=== PATIENT | male | born 1950 | race Caucasian/White ===

== ENCOUNTER → 2016-12-24 | Outpatient (CLI) | payer BC, OTHER ==
[~2016-12-24] MED LIST: ASCO500T3 PO; ASPI325T45 PO; COLE625T PO; Co Q-10 PO; EZET10TA44 PO; FERR325T5 PO; FOLI800T PO; GLC/500 PO; MULT-845 PO; NIAC1TAB59 PO; OMEG10007 PO; PANT40TA PO
== END | disposition home or self-care (01) ==
LOC: C.PATH 13:46
PROVIDERS: ATTEND Dermatology
DX: L82.1 Other seborrheic keratosis (principal)

== ENCOUNTER → 2017-01-27 | Outpatient (CLI) | payer OTHER ==
[2017-01-27 11:21] LABS: ALT/SGPT 38 U/L (12-78); BLOOD UREA NITROGEN 20 mg/dl (7-18); BUN/CREATININE RATIO 23.2 (10-20); CALCIUM 9.7 mg/dl (8.5-10.1); CARBON DIOXIDE 31 mmol/L (21-32); CHLORIDE 107 mmol/L (98-107); CHOLESTEROL 167 mg/dl (0-200); CREATININE 0.88 mg/dl (0.60-1.40); GLUCOSE 106 mg/dl (70-99); POTASSIUM 4.6 mmol/L (3.5-5.1); SODIUM 141 mmol/L (136-145); TRIGLYCERIDES 105 mg/dl (0-150); VERY LOW DENSITY LIPOPROT CALC 21 mg/dl
[2017-01-27 11:24] LABS: ALB/GLOB RATIO 1.1 (0.9-2); ALKALINE PHOSPHATASE 45 U/L (45-117); AST/SGOT 37 U/L (15-37); CHOLESTEROL/HDL RATIO 4.9; HDL CHOLESTEROL 34 mg/dl; LDL CHOLESTEROL CALCULATED 112 mg/dl
[2017-01-27 12:40] LABS: ESTIMATED AVERAGE GLUCOSE 140 mg/dl; HA1C FLAG Normal (Normal)
== END | disposition home or self-care (01) ==
LOC: C.LABBC 08:18
PROVIDERS: ATTEND Physician Assistant
DX: E11.9 Type 2 diabetes mellitus without complications (principal); E78.5 Hyperlipidemia, unspecified

== ENCOUNTER → 2017-05-02 | Outpatient (CLI) | payer OTHER | END | disposition home or self-care (01) | LOC: C.LABBC 12:54 | PROVIDERS: ATTEND Urology | DX: Z12.5 Encounter for screening for malignant neoplasm of prostate (principal) ==

== ENCOUNTER → 2017-08-09 | Outpatient (CLI) | payer OTHER ==
[2017-08-09 13:56] LABS: BASO % 0.6 %; BASO ABS # 0.03 K/uL (0-0.2); EOS % 2.7 %; EOS ABS # 0.14 K/uL (0-0.5); HEMATOCRIT 41.8 % (42-52); HEMOGLOBIN 13.9 g/dL (14.0-18.0); HEMOGLOBIN A1C 6.6 % (4.5-5.6); IG# 0.01 K/uL (0.00-0.02); LYMPH % 20.3 %; LYMPH ABS # 1.05 K/uL (1.2-3.4); MEAN CELL VOLUME 95.2 fL (80-100); MEAN CORPUSCULAR HEMOGLOBIN 31.7 pg (25-34); MEAN CORPUSCULAR HGB CONC 33.3 g/dl (32-36); MEAN PLATELET VOLUME 10.1 fL (7.4-10.4); MONO % 14.1 %; MONO ABS # 0.73 K/uL (0.11-0.59); NEUT % 62.1 %; PLATELET COUNT 169 K/uL (130-400); RED CELL DISTRIBUTION WIDTH CV 13.9 % (11.5-14.5); RED CELL DISTRIBUTION WIDTH SD 48.4 fL (36.4-46.3); WHITE BLOOD COUNT 5.16 K/uL (4.8-10.8)
[2017-08-09 14:32] LABS: ALBUMIN 3.9 gm/dl (3.4-5.0); ALT/SGPT 50 U/L (12-78); BLOOD UREA NITROGEN 16 mg/dl (7-18); CALCIUM 9.7 mg/dl (8.5-10.1); CARBON DIOXIDE 30 mmol/L (21-32); CREATININE 0.84 mg/dl (0.60-1.40); GLUCOSE 106 mg/dl (70-99); POTASSIUM 4.2 mmol/L (3.5-5.1); SODIUM 137 mmol/L (136-145)
[2017-08-09 14:43] LABS: ALKALINE PHOSPHATASE 52 U/L (45-117); AST/SGOT 41 U/L (15-37); TOTAL PROTEIN 8.1 gm/dl (6.4-8.2)
== END | disposition home or self-care (01) ==
LOC: C.LABBC 09:52
PROVIDERS: ATTEND Internal Medicine
DX: I73.9 Peripheral vascular disease, unspecified (principal)

== ENCOUNTER → 2017-08-22 | Outpatient (CLI) | payer OTHER | END | disposition home or self-care (01) | LOC: C.LABBC 11:10 | PROVIDERS: ATTEND Internal Medicine | DX: E78.5 Hyperlipidemia, unspecified (principal) ==

== ENCOUNTER → 2017-10-27 | Outpatient (CLI) | payer OTHER | END | disposition home or self-care (01) | LOC: C.LABBC 09:49 | PROVIDERS: ATTEND Urology | DX: N40.1 Benign prostatic hyperplasia with lower urinary tract symptoms (principal); R97.20 Elevated prostate specific antigen [PSA] ==

== ENCOUNTER → 2018-02-17 | Outpatient (CLI) | payer OTHER ==
[~2018-02-17] MED LIST changes: +ASPECOTC PO; -ASPI325T45 PO
[2018-02-17 11:48] LABS: HEMOGLOBIN A1C 6.5 % (4.5-5.6)
== END | disposition home or self-care (01) ==
LOC: C.LABBC 09:13
PROVIDERS: ATTEND Internal Medicine
DX: E78.5 Hyperlipidemia, unspecified (principal); I73.9 Peripheral vascular disease, unspecified

== ENCOUNTER 2023-06-30 15:37 | Inpatient (IN) ==
--- NOTE | 2023-06-30 15:48 | ED Triage Note ---
Date of Service June 30, 2023 Provider in Triage Author: Austen [place] History of Present Illness This patient was briefly evaluated while in triage. An abbreviated physical exam was performed. This patient is a 73-year-old Male who presents to the ED for evaluation of dyspnea. Here via EMS. On scene about 35 breaths per minute. Hx of pulmonary fibrosis. O2 then 79-80% on 3L. Placed on 15 liters and better. Now 95% at 6L. Started o2 in october of this year. 200mL of NSS in route. Feeling off since this weekend. Notes "dizziness, ear blockage, dry mouth, rapid breathing, heart thumping, swollen ankles, incoherence". On morphine and ativan. Physical Exam GENERAL: 73 year old male. In no acute distress. SKIN: No lesions or rashes. HEART: Regular rate and rhythm. LUNGS: Clear to auscultation. Diminished breath sounds. On oxygen currently. ABDOMEN: Bowel sounds normoactive. No guarding or rigidity. No tenderness of palpation. NEURO: Alert and oriented. No deficits. MUSCULOSKELETAL: No deformities to inspection of the extremities. PSYCH: Patient is pleasant and answers all questions appropriately. Initial orders for labs and / or imaging were placed and patient was placed in the waiting area until a bed is available. Please see further documentation for the full ED course.
[2023-06-30 16:46] LABS: Basophils # (auto) 0.04 K/uL (0.00-0.20); Basophils % (auto) 0.4 %; Eosinophils # (auto) 0.09 K/uL (0.00-0.50); Hematocrit (blood only) 34.5 % (42.0-52.0); Hemoglobin 11.2 g/dl (14.0-18.0); Immature Granulocytes # (auto) 0.04 K/uL (0.01-0.20); Immature Granulocytes % (auto) 0.4 %; Lymphocytes # (auto) 0.63 K/uL (1.20-3.40); Lymphocytes % (auto) 6.7 %; Mean Corpuscular Hemoglobin 32.1 pg (25.0-34.0); Mean Corpuscular Hgb Conc 32.5 g/dL (32.0-36.0); Mean Corpuscular Volume 98.9 fL (80.0-100.0); Mean Platelet Volume 10.3 fL (9.4-12.4); Monocytes # (auto) 0.53 K/uL (0.11-0.59); Monocytes % (auto) 5.6 %; Neutrophils # (auto) 8.08 K/uL (1.40-6.50); Neutrophils % (auto) 85.9 %; Platelet Count 226 K/uL (130-400); RDW Coefficient of Variation 14.4 % (11.5-14.5); RDW Standard Deviation 51.8 fL (36.4-46.3); Red Blood Count 3.49 M/uL (4.70-6.10); White Blood Count 9.41 K/ul (4.8-10.8)
--- NOTE | 2023-06-30 16:48 | XRay Report ---
SINGLE VIEW CHEST CLINICAL HISTORY: Dyspnea. FINDINGS: An AP upright chest radiograph is compared to study dated 09/04/2021 and correlated with [facility] [address] dated 07/23/2022. The patient is status post midline sternotomy. The heart is enlarged and noti ng atherosclerotic calcification of the thoracic aorta. Extensive/diffuse nodular airspace opacities are seen throughout both lungs. This likely represents chronic interstitial lung disease. Air space o pacities have worsened as compared to the 2021 examination, and a superimposed multifocal pneumonia o r pulmonary edema is not excluded.. No large pleural effusion or pneumothorax is seen. The skeletal s tructures are osteopenic. The bony thorax is grossly intact. A surgical anchor is noted in the right humeral head. Surgical clips project over the upper abdomen. IMPRESSION: 1. Findings of severe chronic/interstitial lung disease are again noted. 2. Diffuse airspace opacities have significantly progressed as compared to the 09/04/2021 examination. Superimposed multifocal pneumonia and/or pulmonary edema is not excluded. Clinical correlation will be essential. 3. Cardiomegaly. 4. No large pleural effusion or pneumothorax is seen. ACT 112: Negative or not required by law. Electronically signed by: David Anthony M.D. 06/30/2023 4:47 PM
[2023-06-30 17:00] LABS: Albumin Level 3.5 gm/dl (3.4-5.0); BUN Creatinine Ratio 41.9 (10-20); Bilirubin,Total 0.3 mg/dl (0.2-1.0); Creatinine Clr Calc Pharmacy 75.3 ml/min; Est GFR (African American) 106.8 ml/min; Est GFR (Non-African American) 92.2 ml/min; Globulin 3.4 gm/dl (2.5-4.0); Potassium 4.4 mmol/L (3.5-5.1); Total Protein 6.9 gm/dl (6.0-8.3)
[2023-06-30 17:09] LABS: INR 1.3 (0.9-1.1); Partial Thromboplastin Ratio 0.9; Partial Thromboplastin Time 25 Seconds (21-31)
[2023-06-30 17:14] LABS: Thyroid Stimulating Hormone 1.559 uIu/ml (0.300-4.500)
[2023-06-30 17:22] LABS: Adenovirus PCR Not Detected (NotDetected); Bordetella parapertussis PCR Not Detected (NotDetected); Bordetella pertussis PCR Not Detected (NotDetected); Chlamydia pneumoniae PCR Not Detected (NotDetected); Coronavirus 229E PCR Not Detected (NotDetected); Coronavirus CoV-2 (COVID19)PCR Not Detected (NotDetected); Coronavirus HKU1 PCR Not Detected (NotDetected); Coronavirus NL63 PCR Not Detected (NotDetected); Coronavirus OC43PCR Not Detected (NotDetected); Human Metapneumovirus PCR Not Detected (NotDetected); Influenza A PCR Not Detected (NotDetected); Influenza B PCR Not Detected (NotDetected); Mycoplasma pneumoniae PCR Not Detected (NotDetected); Parainfluenza Virus 1 PCR Not Detected (NotDetected); Parainfluenza Virus 2 PCR Not Detected (NotDetected); Parainfluenza Virus 3 PCR Not Detected (NotDetected); Parainfluenza Virus 4 PCR Not Detected (NotDetected); Respiratory Syncytial VirusPCR Not Detected (NotDetected); Rhinovirus/Enterovirus PCR Not Detected (NotDetected)
[2023-06-30] MEDS ORDERED: NITROGLYCERIN 2% OINTMENT 30GM TUBE EXT STA (17:25)
[2023-06-30] MEDS ORDERED: FUROSEMIDE 40 MG/4 ML VIAL IV ONE (17:34)
--- NOTE | 2023-06-30 17:41 | Emergency Department Note ---
Impression & Plan SOB (shortness of breath), CHF (congestive heart failure), Pedal edema, Anemia, Elevated troponin ED Provider Note NAME: MARCO ANTONIO GARCIA AGE: 73 SEX: M : 1950 ARRIVES VIA: Ambulance INFORMANT: [Patient][family] ED PROVIDER(S): [David Smith MD] CHIEF COMPLAINT: Short of breath HISTORY OF PRESENT ILLNESS: The patient is a 73-year-old male who states that he has had increasing shortness of breath for about 3 weeks. No fever or increased cough. He has noticed an increasing pedal edema. The patient states that he typically wears 3 L of oxygen. Today, he felt poor enough that EMS was called. Upon EMS arrival, O2 saturation was in the upper 70s on his typical 3 L. He was placed on a higher amount of oxygen and feels markedly better. He is currently on 6 L and breathing much more comfortably. The patient has not had chest pain. He has been taking his medications as prescribed. As per his family, at times recently, the patient has been more somnolent and not quite himself. Right now, he is interactive, awake and alert. PMHx/PSHx/Social Hx: See Below PHYSICAL EXAM: GENERAL: Patient is in mild respiratory distress. Thin. HEENT: No acute trauma, normocephalic atraumatic, mucous membranes moist, no nasal congestion. NECK: No stridor, no adenopathy, no meningismus, trachea is midline. LUNGS: Increased respiratory rate. Does speak in shorter sentences. Patient has crackles bilaterally, breath sounds equal bilaterally. HEART: Without murmurs gallops or rubs, regular rate and rhythm. ABDOMEN: Soft, nontender, no peritonitis. EXTREMITIES: No cyanosis, full range of motion of all the joints without pain or difficulty. Moderate bilateral pedal edema. NEUROLOGIC: Awake and alert, no acute motor or sensory deficits, no focal weakness. SKIN: No jaundice, no diaphoresis. DIFFERENTIAL DIAGNOSIS: Pneumonia, bronchitis, viral illness, worsening pulmonary fibrosis, CHF, anemia, cardiac ischemia, among others. EMERGENCY DEPARTMENT PROCEDURES: MEDICAL DECISION MAKING: There is no leukocytosis. An anemia was seen with a hemoglobin of 11.2. The patient does have a history of anemia although today's value is somewhat lower than baseline. There is a normal platelet count. INR is high at 1.3. There is no renal failure. Lactic acid level is not elevated making sepsis less likely. No concerning liver enzyme elevation. Patient appeared to be in euthyroid state. ECG shows a normal sinus rhythm, there was no ST elevation. Cardiac enzyme testing x 1 was slightly elevated. This troponin elevation could be secondary to mismatch from his dyspnea or potentially cardiac injury. BNP was elevated consistent with CHF and fluid overload. Chest x-ray does show what appears to be CHF. Pulmonary fibrosis was also seen. Chest CT does not show PE, pneumonia versus potential fluid overload was suggested. Respiratory bio fire was negative. On exam, the patient did have crackles bilaterally. He had pedal edema. The patient appeared to be fluid overloaded by workup and exam. He was given 1 inch of nitroglycerin paste. He was given 40 mg of IV Lasix. Cefepime was given for empiric antibiotic coverage. I did speak with the patient about his findings--given his dyspnea, given the reported hypoxia, given his x-ray findings and laboratory testing, hospitalization is indicated. I spoke with the patient and case management. The on-call hospitalist was consulted. Prior/Outside records/notes reviewed: Pulmonology note from 06/14/2023 discussing his chronic pulmonary fibrosis as well as coronary artery disease and the plan moving forward. ECG per my interpretation: Indication was shortness of breath. The ECG shows a normal sinus rhythm with significant baseline artifact. The rate is 89. There is no obvious ST elevation, no PVCs. The QTc is 579. Continuous Cardiac Monitoring per my interpretation: An order was placed for continuous cardiac monitoring. The monitor shows a rate of 79 with normal sinus rhythm. Imaging/x-ray results per my interpretation: Chest x-ray shows pulmonary fibrosis and what appears to be some CHF. No pneumothorax. Chronic Medical/Social conditions affecting care: Advanced age, chronic pulmonary fibrosis. Care/Management discussed with: Case management, the on-call [facility] hospitalist. Level of care consideration(s): After review of the information above and other included data: --I believe the patient requires escalation of care to admission Critical Care Note: I have personally spent 47 minutes of critical care time in the direct management of this patient. This includes bedside care, interpretation of diagnostic studies, and testing, discussion with consultants, patient, and family members, and other required patient management activities. This 47 minutes is in excess of all separately billable procedures. DISPOSITION: Admission Past Med/Surg History Medical History Dyspnea Cachexia associated with pulmonary fibrosis IPF (idiopathic pulmonary fibrosis) Pulmonary hypertension Lower extremity edema Coronary artery disease Lung nodule, multiple Persistent dry cough Lower extremity edema CORIN on CPAP Iron deficiency anemia Aleman's esophagus without dysplasia History of anesthesia reaction "a little bit goes a long way" History of kidney stones BPH (benign prostatic hyperplasia) History of hiatal hernia Diabetes mellitus, type 2 NIDDM On anticoagulant therapy aspirin 325mg daily Hypertension Hyperlipidemia Obstructive sleep apnea CPAP Peripheral arterial disease Coronary artery disease FOLLOWS WITH PCP DR. MONTEZ Surgical History History of cataract surgery BILAT History of repair of right rotator cuff History of prostate biopsy benign Hx of vasectomy History of cystoscopy Status post laser lithotripsy of ureteral calculus History of colonoscopy History of esophagogastroduodenoscopy (EGD) History of tooth extraction History of wisdom tooth extraction History of left-sided carotid endarterectomy 1993 @ [place], [place]--90% blocked History of cardiac cath 1985 ---> CABG History of four vessel coronary artery bypass graft 1985 @ [facility] Family History Father Myocardial infarction Prostate cancer Mother Family history of diabetes mellitus Hypertension Myocardial infarction Diabetes Other No family history of adverse response to anesthesia Denies family history of Ovarian cancer Breast cancer Lung cancer Colorectal cancer Stroke Social History Smoking Status: Current every day smoker Second Hand Exposure: No; Do You Dip or Chew Tobacco: No; Hx Alcohol Use: No Hx Substance Use: No Preferred Language: Yakut Communication Ability: Effective Visual Impairment: Limited Hearing Ability: Normal 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 [employer] Required: No Beliefs That Will Affect Care: None marital status: Current Living Situation: Spouse Current Living Situation Comment: Lives with and adult daughter current occupational status: retired How many Children do You have: 3 Feels Safe at Home: Yes Childhood Exposure to Second-Hand Smoke: Yes Diet: regular caffeine: Yes Dental Care, Regularly: Yes Physical Activity Frequency: 3-4 Times per Week Seatbelt Use: always Sunscreen Use: Yes Assistive Devices: None Allergies Allergies Allergy/AdvReac Type Severity Reaction Status Date / Time No Known Allergies Allergy Verified 06/30/23 17:36 Home Meds Home Medications Medication Instructions Recorded Confirmed folic acid 800 mcg tablet 0.8 mg PO TID 02/13/19 06/30/23 [id number] 300 mcg-K 60 1 tab PO QAM 02/13/19 06/30/23 mcg-lycop 600 mcg-lutein 300 mcg tablet (Centrum Silver Ultra Men's) omega-3 acid ethyl esters 1 gram 1 cap PO QDL 02/13/19 06/30/23 capsule ascorbic acid (vitamin C) 500 mg 500 mg PO 3XWK 02/21/19 06/30/23 tablet ferrous sulfate 325 mg (65 mg 325 mg PO 3XWK 02/21/19 06/30/23 iron) tablet cyanocobalamin (vitamin B-12) 2,500 mcg PO QAM 02/22/19 06/30/23 2,500 mcg tablet coenzyme Q10 100 mg tablet 200 mg PO QAM 03/28/20 06/30/23 lactobacillus combination no.9 4 4,000 mmu cells PO QAM 03/28/20 06/30/23 billion cell capsule (Adult 50 Plus Probiotic) evolocumab 140 mg/mL subcutaneous 140 mg subcut .Q2WKS 02/22/22 06/30/23 pen injector (Gabriele Downey) ipratropium bromide 21 mcg (0.03 2 spray intranasal BID 09/21/22 06/30/23 %) nasal spray aspirin 81 mg tablet,delayed 81 mg PO DAILY 06/30/23 06/30/23 release ezetimibe 10 mg tablet 10 mg PO HS 06/30/23 06/30/23 metformin 500 mg tablet 1,000 mg PO BID 06/30/23 06/30/23 pantoprazole 40 mg tablet,delayed 40 mg PO QAM 06/30/23 06/30/23 release pirfenidone 267 mg capsule 534 mg PO TID 06/30/23 06/30/23 (Esbriet) rosuvastatin 40 mg tablet 40 mg PO HS 06/30/23 06/30/23 Previous Rx's Medication Instructions Recorded CPAP Machine #1 ea 07/04/19 blood-glucose meter (OneTouch #1 ea 09/27/19 Ultra2 Meter kit) Flutter Valve #1 ea 03/01/22 lancets 30 gauge (OneTouch Delica #100 ea 06/22/22 Lancets) colesevelam 625 mg tablet 1,250 mg (2 x 625 mg) PO TID #540 07/30/22 tabs CPAP Supplies #1 ea 10/12/22 alfuzosin 10 mg tablet,extended 10 mg PO DAILY #90 tabs 10/13/22 release 24 hr gabapentin 300 mg capsule 300 mg PO BID #240 caps 11/25/22 furosemide 40 mg tablet (Lasix) 40 mg PO DAILY Interstitial lung 02/25/23 disease/pulmonary edema #90 tabs benzonatate 100 mg capsule 100 mg PO TID PRN cough #90 caps 04/07/23 morphine 20 mg/5 mL (4 mg/mL) oral 2.5 mg (0.625 mL) PO Q6H PRN 04/14/23 solution dyspnea #100 mL lorazepam 0.5 mg tablet 0.25 mg (1/2 x 0.5 mg) PO Q8H PRN 05/12/23 anxiety due to resp failure from pulm fibrosis 1 month #90 tabs Oxygen Home #2 L 05/16/23 Results & Data (ED) Vital Signs Vital Signs - 24 hr 06/30/23 15:36 06/30/23 15:46 06/30/23 17:27 Temperature 36.6 C Temperature Source Temporal Artery Scan Pulse Rate 79 90 Pulse Rate from SpO2 Sensor Respiratory Rate 18 Blood Pressure 96/63 L Blood Pressure Mean 74 Pulse Oximetry 95 95 Oxygen Delivery Method Nasal Cannula Nasal Cannula Oxygen Flow Rate 6 6 Sepsis Recent Fever Within 48 Hours No Sepsis New/Unexplained Change in Mental Status N/A Sepsis Action Taken by Nursing No Action Required 06/30/23 17:27 06/30/23 17:30 06/30/23 17:30 Temperature Temperature Source Pulse Rate 81 95 H Pulse Rate from SpO2 Sensor 82 95 H Respiratory Rate 24 32 H Blood Pressure 95/69 L Blood Pressure Mean 78 Pulse Oximetry 99 99 Oxygen Delivery Method Oxygen Flow Rate Sepsis Recent Fever Within 48 Hours Sepsis New/Unexplained Change in Mental Status Sepsis Action Taken by Nursing 06/30/23 18:00 06/30/23 18:00 Temperature Temperature Source Pulse Rate 90 Pulse Rate from SpO2 Sensor 90 Respiratory Rate 26 H Blood Pressure 99/70 L Blood Pressure Mean 84 Pulse Oximetry 99 Oxygen Delivery Method Oxygen Flow Rate Sepsis Recent Fever Within 48 Hours Sepsis New/Unexplained Change in Mental Status Sepsis Action Taken by Care Home Medications Current Medication List: was personally reviewed by me Laboratory Data Attestation: I reviewed the patient's lab results. 06/30/23 16:14 06/30/23 16:14 Lab Results 06/30/23 06/30/23 06/30/23 Range/Units 16:12 16:14 16:15 WBC 9.41 (4.8-10.8) K/ul RBC 3.49 L (4.70-6.10) M/uL Hgb 11.2 L (14.0-18.0) g/dl Hct 34.5 L (42.0-52.0) % MCV 98.9 (80.0-100.0) fL MCH 32.1 (25.0-34.0) pg MCHC 32.5 (32.0-36.0) g/dL RDW Std Deviation 51.8 H (36.4-46.3) fL RDW Coeff of Joe 14.4 (11.5-14.5) % Plt Count 226 (130-400) K/uL MPV 10.3 (9.4-12.4) fL Immature Gran % (Auto) 0.4 % Neut % (Auto) 85.9 % Lymph % (Auto) 6.7 % [place] % (Auto) 5.6 % Eos % (Auto) 1.0 % Baso % (Auto) 0.4 % Neut # (Auto) 8.08 H (1.40-6.50) K/uL Lymph # (Auto) 0.63 L (1.20-3.40) K/uL [place] # (Auto) 0.53 (0.11-0.59) K/uL Eos # (Auto) 0.09 (0.00-0.50) K/uL Baso # (Auto) 0.04 (0.00-0.20) K/uL Immature Gran # (Auto) 0.04 (0.01-0.20) K/uL PT 14.0 H (9.0-12.0) Seconds INR 1.3 H (0.9-1.1) APTT 25 (21-31) Seconds PTT Ratio 0.9 Sodium 141 (136-145) mmol/L Potassium 4.4 (3.5-5.1) mmol/L Chloride 105 (98-107) mmol/L Carbon Dioxide 29 (21-32) mmol/L Anion Gap 7 (3-11) BUN 31 H (6-23) mg/dl Creatinine 0.74 (0.6-1.4) mg/dl Est Cr Clr Drug Dosing 75.3 ml/min Est GFR ( Amer) 106.8 ml/min Est GFR (Non-Af Amer) 92.2 ml/min BUN/Creatinine Ratio 41.9 H (10-20) Glucose 126 H (70-99(Fasting)) mg/dl Lactate (0.4-2.0) mmol/L Calcium 9.0 (8.6-10.3) mg/dl Magnesium 1.9 (1.7-2.4) mg/dl Total Bilirubin 0.3 (0.2-1.0) mg/dl AST 20 (13-39) U/L ALT 12 (7-52) U/L Alkaline Phosphatase 56 (34-104) U/L Troponin I High Sens 242.0 H* (0-20) pg/ml B-Natriuretic Peptide 961 H (0-100) pg/ml Total Protein 6.9 (6.0-8.3) gm/dl Albumin 3.5 (3.4-5.0) gm/dl Globulin 3.4 (2.5-4.0) gm/dl Albumin/Globulin Ratio 1.0 (0.9-2) TSH 1.559 (0.300-4.500) uIu/ml Adenovirus (PCR) Not Detected (NotDetected) B. pertussis DNA (PCR) Not Detected (NotDetected) B.parapertussis DNA PCR Not Detected (NotDetected) C. pneumoniae DNA (PCR) Not Detected (NotDetected) Coronavirus OC43 (PCR) Not Detected (NotDetected) Coronavirus HKU1 (PCR) Not Detected (NotDetected) Coronavirus 229E (PCR) Not Detected (NotDetected) SARS-CoV-2 (PCR) Not Detected (NotDetected) Coronavirus NL63 (PCR) Not Detected (NotDetected) Human Metapneumovir PCR Not Detected (NotDetected) Influenza Type A (PCR) Not Detected (NotDetected) Influenza Type B (PCR) Not Detected (NotDetected) M. pneumoniae (PCR) Not Detected (NotDetected) Parainfluenza 1 (PCR) Not Detected (NotDetected) Parainfluenza 2 (PCR) Not Detected (NotDetected) Parainfluenza 3 (PCR) Not Detected (NotDetected) Parainfluenza 4 (PCR) Not Detected (NotDetected) RSV (PCR) Not Detected (NotDetected) Entero/Rhino (PCR) Not Detected (NotDetected) 06/30/23 Range/Units 17:42 WBC (4.8-10.8) K/ul RBC (4.70-6.10) M/uL Hgb (14.0-18.0) g/dl Hct (42.0-52.0) % MCV (80.0-100.0) fL MCH (25.0-34.0) pg MCHC (32.0-36.0) g/dL RDW Std Deviation (36.4-46.3) fL RDW Coeff of Joe (11.5-14.5) % Plt Count (130-400) K/uL MPV (9.4-12.4) fL Immature Gran % (Auto) % Neut % (Auto) % Lymph % (Auto) % [place] % (Auto) % Eos % (Auto) % Baso % (Auto) % Neut # (Auto) (1.40-6.50) K/uL Lymph # (Auto) (1.20-3.40) K/uL [place] # (Auto) (0.11-0.59) K/uL Eos # (Auto) (0.00-0.50) K/uL Baso # (Auto) (0.00-0.20) K/uL Immature Gran # (Auto) (0.01-0.20) K/uL PT (9.0-12.0) Seconds INR (0.9-1.1) APTT (21-31) Seconds PTT Ratio Sodium (136-145) mmol/L Potassium (3.5-5.1) mmol/L Chloride (98-107) mmol/L Carbon Dioxide (21-32) mmol/L Anion Gap (3-11) BUN (6-23) mg/dl Creatinine (0.6-1.4) mg/dl Est Cr Clr Drug Dosing ml/min Est GFR ( Amer) ml/min Est GFR (Non-Af Amer) ml/min BUN/Creatinine Ratio (10-20) Glucose (70-99(Fasting)) mg/dl Lactate 1.0 (0.4-2.0) mmol/L Calcium (8.6-10.3) mg/dl Magnesium (1.7-2.4) mg/dl Total Bilirubin (0.2-1.0) mg/dl AST (13-39) U/L ALT (7-52) U/L Alkaline Phosphatase (34-104) U/L Troponin I High Sens (0-20) pg/ml B-Natriuretic Peptide (0-100) pg/ml Total Protein (6.0-8.3) gm/dl Albumin (3.4-5.0) gm/dl Globulin (2.5-4.0) gm/dl Albumin/Globulin Ratio (0.9-2) TSH (0.300-4.500) uIu/ml Adenovirus (PCR) (NotDetected) B. pertussis DNA (PCR) (NotDetected) B.parapertussis DNA PCR (NotDetected) C. pneumoniae DNA (PCR) (NotDetected) Coronavirus OC43 (PCR) (NotDetected) Coronavirus HKU1 (PCR) (NotDetected) Coronavirus 229E (PCR) (NotDetected) SARS-CoV-2 (PCR) (NotDetected) Coronavirus NL63 (PCR) (NotDetected) Human Metapneumovir PCR (NotDetected) Influenza Type A (PCR) (NotDetected) Influenza Type B (PCR) (NotDetected) M. pneumoniae (PCR) (NotDetected) Parainfluenza 1 (PCR) (NotDetected) Parainfluenza 2 (PCR) (NotDetected) Parainfluenza 3 (PCR) (NotDetected) Parainfluenza 4 (PCR) (NotDetected) RSV (PCR) (NotDetected) Entero/Rhino (PCR) (NotDetected) Administered Medications Ezetimibe (Ezetimibe 10 Mg Tab) 10 mg PO [facility] Stop: 07/30/23 20:59 Last Admin: 06/30/23 20:56 Dose: 10 mg Documented By: HAZEL Folic Acid (Folic Acid 400 Mcg Tab) 800 mcg PO TID [facility] Stop: 07/30/23 20:59 Last Admin: 06/30/23 20:56 Dose: 800 mcg Documented By: HAZEL Gabapentin (Gabapentin 300 Mg Cap) 300 mg PO BID [facility] Stop: 07/30/23 20:59 Last Admin: 06/30/23 20:57 Dose: 300 mg Documented By: HAZEL Methylprednisolone 80 mg/ (Syringe) 1.28 mls @ 1.5 mls/min IV TID [facility] Stop: 07/30/23 20:59 Last Admin: 06/30/23 20:58 Dose: 1.5 mls/min Documented By: HAZEL Insulin Aspart (Insulin Aspart Per Unit Charge) 0 units SC ACHS [facility] Stop: 07/30/23 20:59 Last Admin: 06/30/23 20:57 Dose: 6 units Documented By: HAZEL Co-signed By: ANUSHA Ipratropium [place] (Ipratropium [place] Nasal [place] 0.06% 15ml) 2 sprays JUAN JOSÉ BID [facility] Stop: 07/30/23 20:59 Last Admin: 06/30/23 20:58 Dose: Not Given Documented By: HAZEL Rosuvastatin Calcium (Rosuvastatin Calcium 20 Mg Tab) 40 mg PO [facility] Stop: 07/30/23 20:59 Last Admin: 06/30/23 20:58 Dose: 40 mg Documented By: HAZEL Discontinued Medications Furosemide (Furosemide 40 Mg/4 Ml Vial) 40 mg IV ONE ONE Stop: 06/30/23 17:35 Last Admin: 06/30/23 18:14 Dose: 40 mg Documented By: CPB Vancomycin HCl 1,500 mg/ (Sodium Chloride) 530 mls @ 200 mls/hr IV NOW ONE Stop: 06/30/23 22:07 Last Admin: 06/30/23 20:01 Dose: 200 mls/hr Documented By: AHZEL Cefepime HCl (Maxipime) 20 mls @ 5 mls/min IV Q8H [facility]; Protocol Stop: 06/30/23 21:00 Last Admin: 06/30/23 20:01 Dose: 5 mls/min Documented By: HAZEL Ioversol (Optiray 320 125ml) 119 ml IV ONCE ONE Stop: 06/30/23 19:43 Last Admin: 06/30/23 19:43 Dose: 119 ml Documented By: TITUS Methylprednisolone (Methylprednisolone 125 Mg/2 Ml Vial) Confirm Administered Dose 125 mg .ROUTE .STK-MED ONE Stop: 06/30/23 20:49 Last Admin: 06/30/23 21:08 Dose: Not Given Documented By: HAZEL Nitroglycerin (Nitroglycerin 2% Ointment 30gm Tube) 1 inch EXT NOW STA Stop: 06/30/23 17:26 Last Admin: 06/30/23 17:45 Dose: 1 inch Documented By: CPB Imaging Data Radiologist's Impression: Chest X-Ray 06/30/23 15:49 SINGLE VIEW CHEST CLINICAL HISTORY: Dyspnea. FINDINGS: An AP upright chest radiograph is compared to study dated 09/04/2021 and correlated with chest CT dated 07/23/2022. The patient is status post midline sternotomy. The heart is enlarged and noting atherosclerotic calcification of the thoracic aorta. Extensive/diffuse nodular airspace opacities are seen throughout both lungs. This likely represents chronic interstitial lung disease. Air space opacities have worsened as compared to the 2021 examination, and a superimposed multifocal pneumonia or pulmonary edema is not excluded.. No large pleural effusion or pneumothorax is seen. The skeletal structures are osteopenic. The bony thorax is grossly intact. A surgical anchor is noted in the right humeral head. Surgical clips project over the upper abdomen. IMPRESSION: 1. Findings of severe chronic/interstitial lung disease are again noted. 2. Diffuse airspace opacities have significantly progressed as compared to the 09/04/2021 examination. Superimposed multifocal pneumonia and/or pulmonary edema is not excluded. Clinical correlation will be essential. 3. Cardiomegaly. 4. No large pleural effusion or pneumothorax is seen. ACT 112: Negative or not required by law. Electronically signed by: David Anthony M.D. 06/30/2023 4:47 PM Chest CTA 06/30/23 17:25 Exam(s): CTA CHEST IV Amt: 119 ml optiray 320 EXAM: CT Angiography Chest With Intravenous Contrast CLINICAL HISTORY: Reason for exam: PE. TECHNIQUE: Axial computed tomographic angiography images of the chest with intravenous contrast. CTDI is 14.25 mGy and DLP is 307.38 mGy-cm. Automated exposure control was utilized for the study. A dose lowering technique was utilized adhering to the principles of ALARA. MIP reconstructed images were created and reviewed. COMPARISON: 07/23/2022. FINDINGS: Pulmonary arteries: Small distal branch of a right posterior subsegmental pulmonary artery through the right lower lobe not optimally visualized probably due to motion artifact and severe lung disease. No distinct filling defect seen with the pulmonary arteries to suggest pulmonary embolus. Aorta: Calcified atherosclerotic disease of aorta with no aneurysm or dissection. Lungs: Worsening of reticulonodular and honeycombing pattern consistent with pulmonary fibrosis. Groundglass opacities more severe through the bilateral lower lobes does not exclude superimposed pneumonia. Pleural space: Unremarkable. No significant effusion. No pneumothorax. Heart: Moderate cardiomegaly with coronary artery calcifications. No significant pericardial effusion. No evidence of RV dysfunction. Bones/joints: Midline sternotomy wires. No acute fracture. No dislocation. Soft tissues: Unremarkable. Lymph nodes: Unremarkable. No enlarged lymph nodes. Gallbladder and bile ducts: Upper abdomen revealed thickening of gallbladder wall versus pericholecystic fluid. Low-attenuation structure within the posterior aspect of the right liver lobe measuring 12 mm otherwise incompletely characterized. Other findings: Multilevel degenerative disease of the spine. IMPRESSION: 1. No distinct pulmonary embolus or aortic dissection. 2. Interval worsening of pulmonary fibrosis with superimposed pneumonia, more so through the bilateral lower lobes not excluded. 3. No pneumothorax. 4. Question fluid versus thickening of the wall of the gallbladder, cannot exclude acute cholecystitis. Recommend follow-up with right upper quadrant ultrasound if clinically indicated. Electronically signed by: Shasta Richards MD 06/30/23 20:35 PM Discharge Plan Visit Data Chief Complaint: Shortness of Breath/Dyspnea Stated Complaint: PULMONARY FIBROSIS, INCREASED RR ED Provider: David Smith Discharge Problem: SOB (shortness of breath), CHF (congestive heart failure), Pedal edema, Anemia, Elevated troponin Patient Disposition: Admitted As Inpatient Condition: Fair Discharge Instructions Interventions: ED Discharge Assessment Last Done: 06/30/23 19:49 Discharge Problem: CHF (congestive heart failure) Qualifiers: Heart failure type: unspecified Heart failure chronicity: acute Qualified Code(s): I50.9 - Heart failure, unspecified Anemia Qualifiers: Anemia type: unspecified type Qualified Code(s): D64.9 - Anemia, unspecified
[2023-06-30 17:57] LABS: Magnesium 1.9 mg/dl (1.7-2.4)
--- NOTE | 2023-06-30 17:58 | History & Physical Report ---
Date of Service June 30, 2023 Assessment & Plan (1) Dyspnea: (2) IPF (idiopathic pulmonary fibrosis): (3) CORIN on CPAP: (4) Coronary artery disease: (5) Hypertension: (6) Hyperlipidemia: (7) Type 2 diabetes mellitus: Plan: Acute worsening shortness of breath Idiopathic pulmonary fibrosis Acute on Chronic respiratory failure with hypoxia CORIN on CPAP -Admit to telemetry -Bio fire is negative for acute viral source -Wears 3L NC at baseline, currently requiring 6L, O2 sats 95% -CXR for possible multifocal pneumonia versus fluid overload, with increased edema in legs and progressive worsening shortness of breath presume this may be fluid related, BNP 961 - CT angio pending -Troponin elevated at 242 trend every 6 hours, no chest pain, no acute changes on EKG noted, unlikely ACS at this time, possible demand ischemia - Lasix and nitro 1 in paste administered in the ER, continue Lasix 40 mg IV, place Childers catheter for strict I's/O's, daily weights -Patient has been following with [facility] pulmonology started clinical trial recently-on pirfenidone 801mg TID for antifibrotic therapy. Pt also on morphine for air hunger and anxiety-Per pulm visit on 06/14 patient was reluctant to take it at that time, he is agreeable currently -Will consult Pulm here for management -Patient is not on any steroids, consider -Ca 9.41, check procalcitonin -Follow blood culture, only 1 set obtained, obtain a second now - start IV cefepime and vancomycin, check MRSA nasal swab and if negative can DC Vanco -Has seen palliative care with [facility] as well per pulmonary medicine report as he is not a lung transplant candidate due to underlying cardiac comorbidities.-On -Sleep study has been ordered as an outpatient to see if CPAP pressures can be decreased and can wean off CPAP due to ongoing sinus issues - IV morphine for air hunger CAD HTN HLD - prior CABG x4 at [facility] at the age of 36 in 1985. He had an incidental finding of severe asymptomatic left carotid disease and underwent a left carotid endarterectomy at [facility] in February of 1994. -Follows with Dr. Malave [facility] as outpatient - consult cardiology - On Repatha, colesevelam, baby aspirin, coenzyme Q10, ezetimibe, rosuvastatin - Lasix 40 mg daily - additional lasix given as above - Check Echo with elevated troponin and fluid overload on exam - pt reports having echo completed in January at [facility] but those results are not available for review DM II - Last A1C was 6.9 on 05/11/23 - Hold po metformin, ISS with accucheck achs GERD - Cont PPI Anxiety - Morphine oral solution also to be utilized for air hunger - Gabapentin DVT ppx: teds, scds Lines: GI/FEN: CODE: FULL Dispo: From home, likely to remain in the hospital x 1-2 days History of Present Illness Chief Complaint: Shortness of breath Primary Care Provider: Octavia Bah DO This is a 73-year-old male, goes by "Adryan", with PMHx of idiopathic pulmonary fibrosis, CAD, HLD, carotid stenosis, sleep apnea, DM type II who presents to the hospital with acute worsening shortness of breath of the past 3 weeks, with associated peripheral edema worsening within the past 1 weeks. Pt reports feeli ng increased fatigue and weakness within the past week moreso than his baseline. He typically wears 3 L at baseline, sometimes 3.5 with exertional activities. Normally he can walk 10 to 15 feet without becoming significantly winded, however within the past week he has been able to do minimal things and only walk a little bit before needing to catch his breath. He sleeps lying flat and does not require pillows to prop him up. He does sit for the majority of the day and his feet are on the ground, not elevated. Patient walks without any ambulatory assistive device. Denies any recent falls. He admits to having some chest heaviness which has been present for months, but admits to feeling palpitations today. He denies any specific chest pain, no numbness or tingling, no nausea. Pt has issues with eating and has lost a significant amount of weight, weight about 130 lbs currently. Pt is drinking carnation instant breakfast daily when he cannot tolerate a lot of food. Pt denies any weight gain or loss acutely with swelling in legs. In the past week he had stopped using Ativan and morphine sulfate for air hunger. Pts reports thinking he was confused a litle more than normal about a week ago, and so held these meds since Tuesday. Pt took all his morning medications today. Pts Delores is present at bedside and supports the history. She states that yesterday he was just not himself, had increased difficulty breathing with minimal ADLs. She also notes that Adryan is participating in Tyvaso clinical trial with [facility] and was supposed to go yesterday but didn't feel well enough and did not go. [facility] sees the pt twice weekly as outpatient. He has also recently started seeing a psych therapist for depression/anxiety associated with the sad ness he still feels when knowing that he is not a lung transplant candidate. Today he wishes to be full code. Discussion was held regarding using oral morphine for air hunger and he states his symptoms of shortness of breath seem to be more controlled with this medication. Allergies Allergy/AdvReac Type Severity Reaction Status Date / Time No Known Allergies Allergy Verified 06/30/23 17:36 Home Medications Medication Instructions Recorded Confirmed Type folic acid 800 mcg tablet 0.8 mg PO TID 02/13/19 06/30/23 History nkgctyll-xm-qldhm 300 mcg-K 60 1 tab PO QAM 02/13/19 06/30/23 History mcg-lycop 600 mcg-lutein 300 mcg tablet (Centrum Silver Ultra Men's) omega-3 acid ethyl esters 1 gram 1 cap PO QDL 02/13/19 06/30/23 History capsule ascorbic acid (vitamin C) 500 mg 500 mg PO 3XWK 02/21/19 06/30/23 History tablet ferrous sulfate 325 mg (65 mg 325 mg PO 3XWK 02/21/19 06/30/23 History iron) tablet cyanocobalamin (vitamin B-12) 2,500 mcg PO QAM 02/22/19 06/30/23 History 2,500 mcg tablet CPAP Machine #1 ea 07/04/19 06/09/23 Rx blood-glucose meter (OneTouch #1 ea 09/27/19 06/09/23 Rx Ultra2 Meter kit) coenzyme Q10 100 mg tablet 200 mg PO QAM 03/28/20 06/30/23 History lactobacillus combination no.9 4 4,000 mmu cells PO QAM 03/28/20 06/30/23 History billion cell capsule (Adult 50 Plus Probiotic) evolocumab 140 mg/mL subcutaneous 140 mg subcut .Q2WKS 02/22/22 06/30/23 History pen injector (Gabriele Downey) Flutter Valve #1 ea 03/01/22 06/09/23 Rx lancets 30 gauge (OneTouch Delica #100 ea 06/22/22 06/09/23 Rx Lancets) colesevelam 625 mg tablet 1,250 mg (2 x 625 mg) PO TID #540 07/30/22 06/30/23 Rx tabs ipratropium bromide 21 mcg (0.03 2 spray intranasal BID 09/21/22 06/30/23 History %) nasal spray CPAP Supplies #1 ea 10/12/22 06/09/23 Rx alfuzosin 10 mg tablet,extended 10 mg PO DAILY #90 tabs 10/13/22 06/30/23 Rx release 24 hr gabapentin 300 mg capsule 300 mg PO BID #240 caps 11/25/22 06/30/23 Rx furosemide 40 mg tablet (Lasix) 40 mg PO DAILY Interstitial lung 02/25/23 06/30/23 Rx disease/pulmonary edema #90 tabs benzonatate 100 mg capsule 100 mg PO TID PRN cough #90 caps 04/07/23 06/30/23 Rx morphine 20 mg/5 mL (4 mg/mL) oral 2.5 mg (0.625 mL) PO Q6H PRN 04/14/23 06/30/23 Rx solution dyspnea #100 mL lorazepam 0.5 mg tablet 0.25 mg (1/2 x 0.5 mg) PO Q8H PRN 05/12/23 06/30/23 Rx anxiety due to resp failure from pulm fibrosis 1 month #90 tabs Oxygen Home #2 L 05/16/23 06/09/23 Rx aspirin 81 mg tablet,delayed 81 mg PO DAILY 06/30/23 06/30/23 History release ezetimibe 10 mg tablet 10 mg PO HS 06/30/23 06/30/23 History metformin 500 mg tablet 1,000 mg PO BID 06/30/23 06/30/23 History pantoprazole 40 mg tablet,delayed 40 mg PO QAM 06/30/23 06/30/23 History release pirfenidone 267 mg capsule 534 mg PO TID 06/30/23 06/30/23 History (Esbriet) rosuvastatin 40 mg tablet 40 mg PO HS 06/30/23 06/30/23 History Past Med/Surg History Medical History (Updated 06/14/23 @ 11:56 by Shane River MD) Dyspnea Cachexia associated with pulmonary fibrosis IPF (idiopathic pulmonary fibrosis) Pulmonary hypertension Lower extremity edema Coronary artery disease Lung nodule, multiple Persistent dry cough Lower extremity edema CORIN on CPAP Iron deficiency anemia Aleman's esophagus without dysplasia History of anesthesia reaction "a little bit goes a long way" History of kidney stones BPH (benign prostatic hyperplasia) History of hiatal hernia Diabetes mellitus, type 2 NIDDM On anticoagulant therapy aspirin 325mg daily Hypertension Hyperlipidemia Obstructive sleep apnea CPAP Peripheral arterial disease Coronary artery disease FOLLOWS WITH PCP DR. MONTEZ Surgical History History of cataract surgery BILAT History of repair of right rotator cuff History of prostate biopsy benign Hx of vasectomy History of cystoscopy Status post laser lithotripsy of ureteral calculus History of colonoscopy History of esophagogastroduodenoscopy (EGD) History of tooth extraction History of wisdom tooth extraction History of left-sided carotid endarterectomy 1993 @ [facility] [place]--90% blocked History of cardiac cath 1985 ---> CABG History of four vessel coronary artery bypass graft 1985 @ [place] Family History Father Myocardial infarction Prostate cancer Mother Family history of diabetes mellitus Hypertension Myocardial infarction Diabetes Other No family history of adverse response to anesthesia Denies family history of Ovarian cancer Breast cancer Lung cancer Colorectal cancer Stroke Social History Smoking Status: Current every day smoker Second Hand Exposure: No; Do You Dip or Chew Tobacco: No; Hx Alcohol Use: No Hx Substance Use: No Preferred Language: Turkish Communication Ability: Effective Visual Impairment: Limited Hearing Ability: Normal Pizza Delivery Required: No Beliefs That Will Affect Care: None marital status: Current Living Situation: Spouse Current Living Situation Comment: Lives with and adult daughter current occupational status: retired How many Children do You have: 3 Feels Safe at Home: Yes Childhood Exposure to Second-Hand Smoke: Yes Diet: regular caffeine: Yes Dental Care, Regularly: Yes Physical Activity Frequency: 3-4 Times per Week Seatbelt Use: always Sunscreen Use: Yes Assistive Devices: None Review of Systems Review of Systems: Constitutional: No fever, sweats or chills Eyes: No diplopia, no worsening or blurred vision ENT: normal hearing, no trouble swallowing Respiratory: As per HPI Cardiovascular: No chest pain, tightness, + feels palpitations Abdomen: No pain, nausea, vomiting, diarrhea or constipation Musculoskeletal: No joint pain, calf pain, swelling Neurologic: No weakness, numbness/tingling, or balance problems Psychiatric: + anxiety and depression Skin: No rash or itch Physical Exam Physical Exam: General: awake, alert, no apparent distress, cachectic white male Head: Normocephalic, atraumatic ENT: PERRL, EOMI, no pharyngeal exudate, mucous membranes moist Chest: Diminished breath sounds throughout, takes shallow breaths, difficulty with deep breaths, on 6L via NC no wheezes, + faint rales Cardiac: Regular rate and rhythm, no murmur, no JVD, normal peripheral pulses, good capillary refill Abdominal: NABS x 4 quadrants, soft, nondistended, nontender to palpation, no rebound or guarding Extremities: + muscle atrophy throughout, + 2 + pitting peripheral edema up to knees bilaterally, no erythema, calfs nontender to palpation Psych: Normal mood and affect Neuro: AAO x 3, strength intact bilaterally and rated 5/5, no motor deficits, speech is clear, no peripheral sensory deficits Results & Data Results & Data Vital Signs (Past 12 Hours) Vital Signs Temp Pulse Resp BP Pulse Ox O2 Del Method O2 Flow Rate 06/30/23 15:46 95 Nasal Cannula 6 06/30/23 15:36 36.6 C 79 18 96/63 L 95 Nasal Cannula 6 Laboratory Results 06/30/23 17:47 Aerobic Blood Culture - Pending Blood Anaerobic Blood Culture - Pending 06/30/23 06/30/23 06/30/23 17:42 16:15 16:14 WBC 9.41 RBC 3.49 L Hgb 11.2 L Hct 34.5 L MCV 98.9 MCH 32.1 MCHC 32.5 RDW Std Deviation 51.8 H RDW Coeff of Joe 14.4 Plt Count 226 MPV 10.3 Immature Gran % (Auto) 0.4 Neut % (Auto) 85.9 Lymph % (Auto) 6.7 Granite % (Auto) 5.6 Eos % (Auto) 1.0 Baso % (Auto) 0.4 Neut # (Auto) 8.08 H Lymph # (Auto) 0.63 L Granite # (Auto) 0.53 Eos # (Auto) 0.09 Baso # (Auto) 0.04 Immature Gran # (Auto) 0.04 PT 14.0 H INR 1.3 H APTT 25 PTT Ratio 0.9 Sodium 141 Potassium 4.4 Chloride 105 Carbon Dioxide 29 Anion Gap 7 BUN 31 H Creatinine 0.74 Est Cr Clr Drug Dosing 75.3 Est GFR ( Amer) 106.8 Est GFR (Non-Af Amer) 92.2 BUN/Creatinine Ratio 41.9 H Glucose 126 H Lactate 1.0 Calcium 9.0 Magnesium 1.9 Total Bilirubin 0.3 AST 20 ALT 12 Alkaline Phosphatase 56 Troponin I High Sens 242.0 H* B-Natriuretic Peptide 961 H Total Protein 6.9 Albumin 3.5 Globulin 3.4 Albumin/Globulin Ratio 1.0 TSH 1.559 Adenovirus (PCR) B. pertussis DNA (PCR) B.parapertussis DNA PCR C. pneumoniae DNA (PCR) Coronavirus OC43 (PCR) Coronavirus HKU1 (PCR) Coronavirus 229E (PCR) SARS-CoV-2 (PCR) Coronavirus NL63 (PCR) Human Metapneumovir PCR Influenza Type A (PCR) Influenza Type B (PCR) M. pneumoniae (PCR) Parainfluenza 1 (PCR) Parainfluenza 2 (PCR) Parainfluenza 3 (PCR) Parainfluenza 4 (PCR) RSV (PCR) Entero/Rhino (PCR) 06/30/23 16:12 WBC RBC Hgb Hct MCV MCH MCHC RDW Std Deviation RDW Coeff of Joe Plt Count MPV Immature Gran % (Auto) Neut % (Auto) Lymph % (Auto) Granite % (Auto) Eos % (Auto) Baso % (Auto) Neut # (Auto) Lymph # (Auto) Granite # (Auto) Eos # (Auto) Baso # (Auto) Immature Gran # (Auto) PT INR APTT PTT Ratio Sodium Potassium Chloride Carbon Dioxide Anion Gap BUN Creatinine Est Cr Clr Drug Dosing Est GFR ( Amer) Est GFR (Non-Af Amer) BUN/Creatinine Ratio Glucose Lactate Calcium Magnesium Total Bilirubin AST ALT Alkaline Phosphatase Troponin I High Sens B-Natriuretic Peptide Total Protein Albumin Globulin Albumin/Globulin Ratio TSH Adenovirus (PCR) Not Detected B. pertussis DNA (PCR) Not Detected B.parapertussis DNA PCR Not Detected C. pneumoniae DNA (PCR) Not Detected Coronavirus OC43 (PCR) Not Detected Coronavirus HKU1 (PCR) Not Detected Coronavirus 229E (PCR) Not Detected SARS-CoV-2 (PCR) Not Detected Coronavirus NL63 (PCR) Not Detected Human Metapneumovir PCR Not Detected Influenza Type A (PCR) Not Detected Influenza Type B (PCR) Not Detected M. pneumoniae (PCR) Not Detected Parainfluenza 1 (PCR) Not Detected Parainfluenza 2 (PCR) Not Detected Parainfluenza 3 (PCR) Not Detected Parainfluenza 4 (PCR) Not Detected RSV (PCR) Not Detected Entero/Rhino (PCR) Not Detected Diagnostic Findings Chest X-Ray 06/30/23 15:49 SINGLE VIEW CHEST CLINICAL HISTORY: Dyspnea. FINDINGS: An AP upright chest radiograph is compared to study dated 09/04/2021 and correlated with chest CT dated 07/23/2022. The patient is status post midline sternotomy. The heart is enlarged and noting atherosclerotic calcification of the thoracic aorta. Extensive/diffuse nodular airspace opacities are seen throughout both lungs. This likely represents chronic interstitial lung disease. Air space opacities have worsened as compared to the 2021 examination, and a superimposed multifocal pneumonia or pulmonary edema is not excluded.. No large pleural effusion or pneumothorax is seen. The skeletal structures are osteopenic. The bony thorax is grossly intact. A surgical anchor is noted in the right humeral head. Surgical clips project over the upper abdomen. IMPRESSION: 1. Findings of severe chronic/interstitial lung disease are again noted. 2. Diffuse airspace opacities have significantly progressed as compared to the 09/04/2021 examination. Superimposed multifocal pneumonia and/or pulmonary edema is not excluded. Clinical correlation will be essential. 3. Cardiomegaly. 4. No large pleural effusion or pneumothorax is seen. ACT 112: Negative or not required by law. Electronically signed by: David Anthony M.D. 06/30/2023 4:47 PM ECG Additional Comments: Reviewed personally , no signs of ST wave depression or signs of acute ischemia, Lots of artifact on image Code Status & VTE Plan Code Status Full code-discussed with patient at bedside Supervising Physician Co-Signing Physician Notes Pt seen and examined by myself, Majo Godoy MD on the day of service. Care was coordinated with Shona Cunningham PA-C. 73yoM with PMHx significant for end-stage ILD following with pulmonology and palliative care admitted with acute on chronic hypoxic respiratory failure. Per pt and at bedside, symptoms have been getting progressively worse over the past few days. CTA chest noting progressing ILD, pneumonia, possible acute cholecystitis. Followup RUQ US ordered. Cefepime and Vanc for empiric abx coverage, consider Flagyl addition if concern about aspiration BNP elevated at >900, echo pending, lower extremity swelling. Received IV Lasix 40mg in the ED, continue daily. Monitor kidney function. Trend trops, likely elevated in the setting of demand ischemia. Consider cardiology consult. Consider steroids? Pulmonology consult- pt known to service Rufina for DVT prophylaxis CPAP/Bipap ordered for as needed use, pt currently requiring 6L of oxygen via NC when baseline is 3L. Otherwise as above. (1) Dyspnea Dyspnea type: shortness of breath Qualified Code(s): R06.02 - Shortness of breath (4) Coronary artery disease Coronary Disease-Associated Artery/Lesion type: [place] artery (6) Hyperlipidemia Hyperlipidemia type: unspecified Qualified Code(s): E78.5 - Hyperlipidemia, unspecified (7) Type 2 diabetes mellitus Diabetes mellitus complication status: without complication Diabetes mellitus terminal clerk insulin use: without terminal clerk use Qualified Code(s): E11.9 - Type 2 diabetes mellitus without complications
[2023-06-30] MEDS ORDERED: VANCOMYCIN CONSULT ACTIVE PRN (19:29)
[2023-06-30] MEDS ORDERED: VANCOMYCIN HCL 1,500 MG in SODIUM CHLORIDE 0.9% 500 ML IV ONE (19:29)
[2023-06-30] MEDS ORDERED: CEFEPIME 20 ML IV SCH (19:30)
[2023-06-30] MEDS ORDERED: OPTIRAY 320 125ml IV ONE (19:42)
[2023-06-30] MEDS ORDERED: GLUCAGON FOR INJ 1 MG VIAL SQ PRN (19:48)
[2023-06-30] MEDS ORDERED: GLUCOSE 40% GEL 15 GM TUBE PO PRN (19:48)
[2023-06-30] MEDS ORDERED: BENZONATATE 100 MG CAPSULE PO PRN (19:48)
[2023-06-30] MEDS ORDERED: GLUCOSE 10 TAB/TUBE PO PRN (19:48)
[2023-06-30] MEDS ORDERED: ONDANSETRON INJ 2 MG/ML 2 ML VIAL IV PRN (19:48)
[2023-06-30] MEDS ORDERED: CARBOHYDRATES FOR HYPOGLYCEMIA PO PRN (19:48)
[2023-06-30] MEDS ORDERED: DEXTROSE 50% 50 ML SYRINGE IV PRN (19:48)
[2023-06-30] MEDS ORDERED: ACETAMINOPHEN 325 MG TAB PO PRN (19:48)
[2023-06-30] MEDS ORDERED: MoRPHine SULFATE 10 MG/0.5 ML UDP PO PRN (20:04)
--- NOTE | 2023-06-30 20:36 | CT Scan Report ---
Exam(s): CTA CHEST IV Amt: 119 ml optiray 320 EXAM: CT Angiography Chest With Intravenous Contrast CLINICAL HISTORY: Reason for exam: PE. TECHNIQUE: Axial computed tomographic angiography images of the chest with intravenous contrast. CTDI is 14.25 mGy and DLP is 307.38 mGy-cm. Automated exposure control was utilized for the study. A dose lowering technique was utilized adhering to the principles of ALARA. MIP reconstructed images were created and reviewed. COMPARISON: 07/23/2022. FINDINGS: Pulmonary arteries: Small distal branch of a right posterior subsegmental pulmonary artery through the right lower lobe not optimally visualized probably due to motion artifact and severe lung disease. No distinct filling defect seen with the pulmonary arteries to suggest pulmonary embolus. Aorta: Calcified atherosclerotic disease of aorta with no aneurysm or dissection. Lungs: Worsening of reticulonodular and honeycombing pattern consistent with pulmonary fibrosis. Groundglass opacities more severe through the bilateral lower lobes does not exclude superimposed pneumonia. Pleural space: Unremarkable. No significant effusion. No pneumothorax. Heart: Moderate cardiomegaly with coronary artery calcifications. No significant pericardial effusion. No evidence of RV dysfunction. Bones/joints: Midline sternotomy wires. No acute fracture. No dislocation. Soft tissues: Unremarkable. Lymph nodes: Unremarkable. No enlarged lymph nodes. Gallbladder and bile ducts: Upper abdomen revealed thickening of gallbladder wall versus pericholecystic fluid. Low-attenuation structure within the posterior aspect of the right liver lobe measuring 12 mm otherwise incompletely characterized. Other findings: Multilevel degenerative disease of the spine. IMPRESSION: 1. No distinct pulmonary embolus or aortic dissection. 2. Interval worsening of pulmonary fibrosis with superimposed pneumonia, more so through the bilateral lower lobes not excluded. 3. No pneumothorax. 4. Question fluid versus thickening of the wall of the gallbladder, cannot exclude acute cholecystitis. Recommend follow-up with right upper quadrant ultrasound if clinically indicated. Electronically signed by: Shasta Richards MD 06/30/23 20:35 PM
[2023-06-30] MEDS ORDERED: methylPREDNISolone 125 MG/2 ML VIAL ONE (20:48)
[2023-06-30] MEDS: FOLIC ACID 400 MCG TAB PO SCH (20:56)
[2023-06-30] MEDS: INSULIN ASPART PER UNIT CHARGE SC SCH (20:57)
[2023-06-30] MEDS: GABAPENTIN 300 MG CAP PO SCH (20:57)
[2023-06-30] MEDS: methylPREDNISolone 80 MG in SYRINGE 0 ML IV SCH (20:58)
[2023-06-30] MEDS: IPRATROPIUM BROMIDE NASAL SPRAY 0.06% 15ML NAE SCH (20:58)
[2023-06-30] MEDS ORDERED: COLESEVELAM 625 MG PO SCH (21:00)
[2023-06-30] MEDS ORDERED: EZETIMIBE 10 MG TAB PO SCH (21:00)
[2023-06-30] MEDS ORDERED: ROSUVASTATIN CALCIUM 20 MG TAB PO SCH (21:00)
--- NOTE | 2023-06-30 22:03 | Ultrasound Report ---
ULTRASOUND RIGHT UPPER QUADRANT ABDOMEN CLINICAL HISTORY: Abnormal gallbladder questioned by CT. Cholelithiasis. COMPARISON STUDY: Abdominal ultrasound dated 10/10/2014. Chest CT dated 06/30/2023 TECHNIQUE: Real-time, grayscale, and color flow sonography of the right upper quadrant of the abdomen was performed. Images are reviewed in the transverse and longitudinal planes. FINDINGS: Liver: The liver is normal in size and echotexture. There is no intrahepatic biliary ductal dilatatio n. The main portal vein is patent. Hepatic cysts measure up to 1.8 cm. Gallbladder: There is a 1.4 cm shadowing gallstone seen in the region of the gallbladder neck. The ga llbladder is mildly distended. The gallbladder wall is thickened and mildly edematous, measuring up t o 8 mm in thickness. There is trace pericholecystic fluid. A sonographic Gee's sign could not be e valuated as the patient received analgesia. Foci of adenomyomatosis are noted. The common bile duct m easures up to 0.3 cm in diameter. Pancreas: Visualized portions of the pancreatic head and body are normal in appearance. Right kidney: Survey images of the right kidney demonstrate normal size and echotexture. There is no hydronephrosis. Suspect small nonobstructing renal calculi. Ascites: None. IMPRESSION: 1. Cholelithiasis with an abnormally thick-walled and edematous gallbladder. There is trace perichole cystic fluid and findings are suspicious for acute cholecystitis. Correlate with clinical and laborat ory findings. Surgical assessment is advised. If warranted a nuclear hepatobiliary scan could be cons idered for confirmation. 2. There is no intra or extrahepatic biliary ductal dilatation. 3. Suspect right-sided nephrolithiasis. ACT 112: Negative or not required by law. Electronically signed by: David Anthony M.D. 06/30/2023 10:01 PM
[2023-06-30] MEDS: AZITHROMYCIN 500 MG in DEXTROSE 5% 250 ML IV SCH (22:54)
[2023-06-30] MEDS: ENOXAPARIN INJ 40 MG/0.4 ML SYR SQ SCH (23:10)
[2023-07-01 02:07] LABS: Hemoglobin 11.4 g/dl (14.0-18.0); Mean Corpuscular Hemoglobin 31.8 pg (25.0-34.0); Mean Corpuscular Hgb Conc 30.8 g/dL (32.0-36.0); Mean Corpuscular Volume 103.1 fL (80.0-100.0); Mean Platelet Volume 10.4 fL (9.4-12.4); Platelet Count 218 K/uL (130-400); RDW Coefficient of Variation 14.5 % (11.5-14.5); RDW Standard Deviation 54.9 fL (36.4-46.3); Red Blood Count 3.59 M/uL (4.70-6.10); White Blood Count 10.11 K/ul (4.8-10.8)
[2023-07-01 02:23] LABS: BUN Creatinine Ratio 37.7 (10-20); Calcium 8.8 mg/dl (8.6-10.3); Creatinine Clr Calc Pharmacy 72.4 ml/min; Est GFR (African American) 105.1 ml/min; Est GFR (Non-African American) 90.7 ml/min; Magnesium 1.7 mg/dl (1.7-2.4); Phosphorus 4.9 mg/dl (2.5-4.9)
[2023-07-01] MEDS ORDERED: CEFEPIME 2,000 MG/20 ML VIAL ONE (02:49)
[2023-07-01] MEDS: CEFEPIME 2,000 MG in SYRINGE 0 ML IV SCH ×3 (02:50→19:48)
--- OUTSIDE RECORDS SUMMARY | 2023-07-01 03:05 | External Medical Summary | Summary of Care ---
Author Name Unknown Organization [facility] Address [address] [place] [address] Phone [phone] Care Team Providers Care Metalworking Specialist Name Role Phone Octavia Bah DO Primary Care Provider Reason for Visit * Reason Onset Date Comments Information 06/27/202306/27 Encounter Details Date Type Department Care Team (Late st Contact Info) Description 06/27/2023 11:15 AM EST Scheduled Telephone Family Practice 65 [facility] [address] [place] [address] College, Nurse [facility] Prac [address] [address] Arrived Allergies Active Allergy Reactions Criticality Noted Date Comments Thimerosol Hives,Rash 12/25/2010 Morphine 01/04/2023 Other Reaction(s): GI Upset documented as of this encounter (statuses as of 06/27/2023) Medications Medication Sig Dispensed Refills Start Date End Date Status ferrous sulfate (FEOSOL) 325 (65 FE) MG Tablet Take 1 Tablet by mouth daily with breakfast. Three times a week 0 Active vitamin c (ASCORBIC ACID) 500 MG Tablet Take 1 Tablet by mouth. Three times a week 0 Active Aspirin EC 81 MG Oral Tablet Delayed Release Take 1 Tablet by mouth daily. 30 Tablet 11 07/27/2021 Active Ipratropium Outlook 0.03 % Nasal Solution (Atrovent) Administer 2 Sprays into each nostril in the morning and 2 Sprays before bedtime. 30 mL 3 06/28/2022 Active Evolocumab 140 MG/ML Subcutaneous Solution Auto-injector ([employer]) INJECT 140 MG (1 PEN) UNDER THE SKIN EVERY 14 DAYS. REMOVE FROM REFRIGERATOR 30 MINUTES PRIOR TO INJECTION 6 mL 3 09/10/2022 4 Active Gabapentin 300 MG Oral Capsule (Neurontin) take one capsule (300 mg) by mouth twice a day 240 Capsule 2 11/25/2022 Active Alfuzosin HCl ER 10 MG Oral Tablet Extended Release 24 Hour (Uroxatral) TAKE ONE TABLET BY MOUTH EVERY DAY TAKE AFTER SAME MEAL EACH DAY 90 Tablet 3 10/13/2022 4 Active Additional Information Patient taking differently: 10 mg Oral HS, Reported on 03/24/2023 Rosuvastatin Calcium 40 MG Oral Tablet (Crestor) TAKE ONE TABLET BY MOUTH AT BEDTIME 90 Tablet 3 10/13/2022 4 Active metFORMIN HCl 500 MG Oral Tablet (Glucophage) TAKE TWO TABLETS BY MOUTH TWICE A DAY 360 Tablet 3 10/13/2022 4 Active Tadalafil 5 MG Oral Tablet (Cialis) TAKE ONE TABLET BY MOUTH EVERY DAY 90 Tablet 3 10/04/2022 4 Active Glucose Blood In Vitro Strip TEST ONCE DAILY 100 Strip 3 09/27/2022 4 Active OneTouch Delica Plus [id number] TEST BLOOD SUGAR ONCE DAILY 100 Each 6 06/22/2022 3 Active Furosemide 40 MG Oral Tablet (Lasix) Take 1 tablet (40 mg) by mouth daily for Interstitial lung disease/pulmonary edema 90 Tablet 3 02/25/2023 Active One-A-Day Mens (Minerals) Oral Tablet Take 1 Tablet by mouth daily. 0 Active Lactobacillus Oral Tablet Take 1 Tablet by mouth in the morning. 0 Active Cyanocobalamin 2500 MCG Oral Tablet Take 2,500 mcg by mouth in the morning. 0 Active Folic Acid 0.8 MG Oral Capsule Take 1 Capsule by mouth 3 times a day. With meals 0 Active Fish Oil 1200 MG Oral Capsule Take 1 Capsule by mouth daily. 0 Active Coenzyme Q10 200 MG Oral Capsule Take 1 Capsule by mouth in the morning. 0 Active Fluticasone Propionate 50 MCG/ACT Nasal Suspension (Flonase) Use 1-2 Sprays in each nostril once daily. 48 g 3 04/04/2023 Active Benzonatate 100 MG Oral Capsule (Tessalon Perles) take 1 capsule by mouth three times a day As Needed for cough 90 Capsule 3 04/07/2023 Active Morphine Sulfate 20 MG/5ML Oral Solution take 2.5 mg (0.625 mL) orally every 6 hours As Needed for dyspnea 100 mL 0 04/14/2023 Active Additional Information Patient not taking.Reported on 06/15/2023 Pirfenidone 267 MG Oral Tablet (Esbriet) Take 3 Tablets by mouth in the morning and 3 Tablets at noon and 3 Tablets before bedtime. 3 times a day with meals - taking 2 tablets 3 times a day. 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 100 Tablet 3 05/09/2023 Active Colesevelam HCl 625 MG Oral Tablet (Welchol)Indicatio ns:Dyslipidemia, goal LDL below 70 Take 2 Tablets by mouth in the morning and 2 Tablets at noon and 2 Tablets in the evening. 600 Tablet 3 05/09/2023 Active Ezetimibe 10 MG Oral Tablet (Zetia)Indications :Dyslipidemia, goal LDL below 70 Take 1 Tablet by mouth in the morning. 100 Tablet 3 05/09/2023 Active Mirtazapine 15 MG Oral Tablet (Remeron)Indicatio ns:YELENA (generalized anxiety disorder) Take 1 Tablet by mouth at bedtime. 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 90 Tablet 0 05/12/2023 Active documented as of this encounter (statuses as of 06/27/2023) Active Problems Problem Noted Date Diagnosed Date Chronic respiratory failure with hypoxia 023 documented as of this encounter (statuses as of 06/27/2023) Immunizations Name Administration Dates Next Due COVID-19 mRNA, LNP-s, No Pre serve, 2-Dose Series ([employer]) 04/18/2021,10/14/2020,09/17/2020 COVID-19, LNP-s, No Preserve , Karthik-sucrose, Ages 12+ ([employer]) 11/25/2021 COVID-19, MRNA-LNP, 23-24, P F, 30 MCG/0.3 mL, 12 YRS AND ABOVE, IM ([facility]) 05/09/2023 Covid-19, Mrna, Lnp-s, Pf, B ivalent, 30 Mcg, IM, 12 yrs and above ([employer]) 04/29/2022 HepA Inact/HepB Recomb>=18yrs old 12/29/2022,06/2023 Pneumococcal Conjugate Vacc, 13 Valent (Prevnar) 08/16/2016 Pneumococcal Polysaccharide PPV23 (Pneumovax) 02/23/2018 Season Influenza, Quad, PF, Adjuvanted, 65+ Yrs, IM (FLUAD) 04/14/2019,04/27/2018,05/10/2017,04/10 Seasonal Influenza, Quadriva lent Hd (Fluzone Hd) 05/09/2023,03/30/2022 Seasonal Influenza, Quadriva lent Hd, 65+ Yrs 05/11/2021,03/28/2020 TDAP (age 10 and older)(Boostrix) 02/28/2018 Varicella Zoster Vaccine (Adult) 03/22/2014 Zoster Vaccine Recombinant (Shingrix) 10/24/2019 ,08/22/2019 documented as of this encounter Social History Tobacco Use Types Packs/Day Years Used Date Smoking Tobacco: Never Passive Smoke Exposure: Past Smokeless Tobacco: Never Alcohol Use Standard Drinks/Week Comments Not Currently 0 (1 standard drink = 0.6 oz pur e alcohol) none PHQ-2 Answer Date Recorded PHQ Adult Total Score 15 06/22/2023 Hunger Vital Sign Answer Date Recorded Within the past 12 months, y ou worried that your food would run out before you got the money to buy more. Never true 05/20/20 23 Within the past 12 months, t he food you bought just didn't last and you didn't have money to get more. Never true 05/20/2023 Sex and Gender Information Value Date Recorded Sex Assigned at Not on file Gender Identity Not on file Sexual Orientation Not on file Job Start Date Occupation Industry Not on file Not on file Not on file documented as of this encounter Miscellaneous Notes * Telephone Encounter - Octavia Bah DO - 06/27/2023 12:20 PM EST If swelling is at his baseline, can keep upcoming appt as scheduled. Can discuss at [facility] tomorrow as well. * Telephone Encounter - Crystal Faust LPN - 06/27/2023 12:04 PM EST Nurse phone call: Call placed to patient. States he is still having swelling in ankles and both feet. States there isno change. States he is wearing his compression stockings. Denies pain, feet feeling cold or hot, denies any shortness of breath that is not baseline. Reports he is going to [facility] tomorrowfor an appointment. Education provided to elevate legs as able, frequent rest stops to get up and move as able. Acknowledged understanding. Confirmed next OV date/time with Dr. Bah. States he iswilling to be seen sooner if Dr. Bah feels is necessary. Instructed to contact office with any questions or concerns. documented in this encounter Plan of Treatment Upcoming Encounters Date Type Department Care Team (Late st Contact Info) Description 07/04/2023 3:30 PM EST Nutrition Services Nutrition Services 65 [facility] 293 [facility], [place] [address] Pearl Shay RDN [address] [place] [address] [place] [id number] 07/04/2023 4:20 PM EST Office Visit Family Practice 65 [facility] 293 [facility], [place] [address] Octavia Bah DO 293 [facility] [place] [address] 07/15/2023 2:00 PM EST Nurse Only Ancillary 65 [facility] [place] 293 [place] [address] College, Nurse Annual Wellness Visit [address] [facility] 293 [place] [address] 08/05/2023 2:40 PM EST [facility] [address] [employer] [place] [phone] Joyce Arias, DO 132 [facility] [place] [address] Scheduled Procedures Name Priority Associated Diagnoses Date/Ti me COLONOSCOPY FLEXIBLE PROXIMAL DIAGNOSTIC Recall History of colon polyps Health Maintenance Due Date Last Done Comments Hepatitis C Screening 1968 Hepatitis B (3 of 3 - Hep B Twinrix risk 3-dose series) 05/31/2023 12/29/2022, 11/03/2022 Depression, Most Recent Score >= 10 (will fire each visit until score < 10) 06/23/2023 06/22/2023 COLONOSCOPY-EVERY 5 YRS AGES 18-100 03/26/2025 03/26/2020, 03/26/2020, 12/11/2014, Additional history exists Lipid Panel 06/09/2028 06/09/2023, 03/22/2022 Pneumococcal Vaccine: 65+ Years Completed 02/23/2018, 08/16/2016 Zoster Vaccines Completed 10/24/2019, 07/26, 03/22/2014 COVID-19 Vaccine Completed 05/09/2023, 01/2023, 04/29/2022, Additional history exists Influenza Vaccine (FLU shot) Completed , 03/30/2022, 05/11/2021, Additional history exists GARDASIL-HPV IMMUNIZATION SERIES Aged Out No longer eligible based on patient's age to complete this topic MENINGOCOCCAL (MENACTRA/MENVEO) Aged Out No longer eligible based on patient's age to complete this topic documented as of this encounter Medical Devices Not on filedocumented as of this encounter Care Teams Metalworking Specialist Relationship Specialty Start Date End Date Octavia Bah DO [address] [place] [address] PCP - General Family Medicine 03/24/23 documented as of this encounter
--- OUTSIDE RECORDS SUMMARY | 2023-07-01 03:05 | External Medical Summary | Summary of Care ---
Author Name Unknown Organization [facility] Address [address] [place] [address] Phone [phone] Care Team Providers Care Personal Investment Adviser Name Role Phone Octavia Bah DO Primary Care Provider Reason for Visit * Reason Onset Date Comments Information 06/27/202306/27 Encounter Details Date Type Department Care Team (Late st Contact Info) Description 06/27/2023 11:15 AM EST Scheduled Telephone Family Practice 65 [facility] 293 [place] [address] College, Nurse [facility] Prac [address] [address] Arrived Allergies Active Allergy Reactions Criticality Noted [...] daily. 30 Tablet 11 07/27/2021 Active Ipratropium Winside 0.03 % Nasal Solution (Atrovent) Administer 2 Sprays into each nostril in the morning and 2 Sprays before bedtime. 30 mL 3 06/28/2022 Active Evolocumab 140 MG/ML Subcutaneous Solution Auto-injector ([employer]) INJECT 140 MG (1 PEN) UNDER THE [...] 3 09/27/2022 4 Active OneTouch Delica Plus [id number] TEST BLOOD SUGAR ONCE DAILY 100 Each [...] mRNA, LNP-s, No Pre serve, 2-Dose Series (1bib) 04/18/2021,10/14/2020,09/17/2020 COVID-19, LNP-s, No Preserve , Karthik-sucrose, Ages 12+ (1bib) 11/25/2021 COVID-19, MRNA-LNP, 23-24, P F, 30 MCG/0.3 mL, 12 YRS AND ABOVE, IM [facility] 05/09/2023 Covid-19, Mrna, Lnp-s, Pf, B ivalent, 30 Mcg, IM, 12 yrs and above (1bib) 04/29/2022 HepA Inact/HepB Recomb>=18yrs old 12/29/2022,06/2023 Pneumococcal [...] upcoming appt as scheduled. Can discuss at [facility] tomorrow as well. * Telephone Encounter - [...] not baseline. Reports he is going to [facility] tomorrowfor an appointment. Education provided to elevate [...] PM EST Nutrition Services Nutrition Services 65 [facility] 293 [facility], [place] [address] Pearl Shay RDN [address] [place] [address] [place] [id number] 07/04/2023 4:20 PM EST Office Visit Family Practice 65 [facility] 293 [facility], [place] [address] Octavia Bah DO 293 [facility] [place] [address] 07/15/2023 2:00 PM EST Nurse Only Ancillary 65 [facility] [place] 293 [place] [address] College, Nurse Annual Wellness Visit [address] [facility] 293 [place] [address] 08/05/2023 2:40 PM EST [facility] 132 [facility] [place] [phone] Joyce Arias, DO 132 [facility] [place] [address] Scheduled Procedures Name Priority Associated Diagnoses Date/Ti [...] filedocumented as of this encounter Care Teams Personal Investment Adviser Relationship Specialty Start Date End Date Octavia Bah DO [address] [place] [address] PCP - General Family Medicine 03/24/23 documented as of this encounter
--- OUTSIDE RECORDS SUMMARY | 2023-07-01 03:05 | External Medical Summary | Summary of Care ---
Author Name Unknown Organization [facility] Address [address] [place] [address] Phone [phone] Care Team Providers Care Jowl Trimmer Name Role Phone Octavia Bah DO Primary Care Provider [phone] Reason for Visit * Reason Onset Date Comments Information 06/27/202306/27 Encounter Details Date Type Department Care Team (Late st Contact Info) Description 06/27/2023 11:15 AM EST Scheduled Telephone Family Practice 65 [facility] [address] [place] [address] College, Nurse [facility] Prac [address] [address] Arrived Allergies Active Allergy Reactions Criticality Noted [...] daily. 30 Tablet 11 07/27/2021 Active Ipratropium [place] 0.03 % Nasal Solution (Atrovent) Administer 2 Sprays into each nostril in the morning and 2 Sprays before bedtime. 30 mL 3 06/28/2022 Active Evolocumab 140 MG/ML Subcutaneous Solution Auto-injector ([employer]) INJECT 140 MG (1 PEN) UNDER THE [...] 3 09/27/2022 4 Active OneTouch Delica Plus [id number] TEST BLOOD SUGAR ONCE DAILY 100 Each [...] mRNA, LNP-s, No Pre serve, 2-Dose Series ([employer]) 04/18/2021,10/14/2020,09/17/2020 COVID-19, LNP-s, No Preserve , Karthik-sucrose, Ages 12+ ([employer]) 11/25/2021 COVID-19, MRNA-LNP, 23-24, P F, 30 MCG/0.3 mL, 12 YRS AND ABOVE, IM ([facility]) 05/09/2023 Covid-19, Mrna, Lnp-s, Pf, B ivalent, 30 Mcg, IM, 12 yrs and above ([employer]) 04/29/2022 HepA Inact/HepB Recomb>=18yrs old 12/29/2022,06/2023 Pneumococcal [...] encounter Miscellaneous Notes * Telephone Encounter - Crystal Faust LPN - 06/27/2023 12:32 PM EST Call placed to patient and relayed message from Dr. Bah. Pt. Acknowledged understanding. States he will discuss at appt at [facility] tomorrow as well. Instructed to contact office with and further questions or concerns. * Telephone Encounter - Octavia Bah DO - 06/27/2023 12:20 PM EST If swelling is at his baseline, can keep upcoming appt as scheduled. Can discuss at [facility] tomorrow as well. * Telephone Encounter [...] not baseline. Reports he is going to [facility] tomorrowfor an appointment. Education provided to [...] PM EST Nutrition Services Nutrition Services [address], [address] [place] [address] Pearl Shay, JOHANNY [address] [facility] [address] 07/04/2023 4:20 PM EST Office Visit Family Practice 65 [facility] 293 [place] [address] Octavia Bah, DO [address] [place] [address] 07/15/2023 2:00 PM EST Nurse Only Ancillary 65 [facility] 293 [place] [address] College, Nurse Annual Wellness Visit [address] [address] 08/05/2023 2:40 PM EST [facility] 132 [facility] [place] [phone] Joyce Arias, DO 132 [place] [address] Scheduled Procedures Name Priority Associated Diagnoses Date/Ti [...] filedocumented as of this encounter Care Teams Jowl Trimmer Relationship Specialty Start Date End Date Octavia Bah DO 293 [place] [address] PCP - General Family Medicine 03/24/23 documented as of this encounter
--- OUTSIDE RECORDS SUMMARY | 2023-07-01 03:05 | External Medical Summary | Summary of Care ---
Author Name Unknown Organization [facility] Address [address] [place] [address] Phone [phone] Care Team Providers Care Api Architect Name Role Phone Octavia Bah DO Primary Care Provider [phone] Reason for Visit * Reason Comments Follow Up Encounter Details Date Type Department Care Team (Late st Contact Info) Description 06/15/2023 11:00 AM EST Office Visit Cardiology, [facility] [address] [facility] [place] [address] Lena Mohan CRNP 132 [facility] [place] [address] Coronary artery disease involving eklutna coronary artery of eklutna heart without angina pectoris*; History of left-sided carotid endarterectomy; Chronic respiratory failure with hypoxia (HCC); Dyslipidemia, goal LDL below 70 Allergies Active Allergy Reactions Criticality Noted Date Comments Thimerosol Hives,Rash 12/25/2010 Morphine 01/04/2023 Other Reaction(s): GI Upset documented as of this encounter (statuses as of 06/18/2023) Medications Medication Sig Dispensed Refills Start Date [...] Tablet by mouth daily. 30 Tablet 11 2 Active Ipratropium [place] 0.03 % Nasal Solution (Atrovent) Administer 2 Sprays into each nostril in the morning and 2 Sprays before bedtime. 30 mL 3 2 Active Evolocumab 140 MG/ML Subcutaneous Solution Auto-injector ([employer]) INJECT 140 MG (1 PEN) UNDER THE SKIN EVERY 14 DAYS. REMOVE FROM REFRIGERATOR 30 MINUTES PRIOR TO INJECTION 6 mL 3 3 09/10/19 24 Active Gabapentin 300 MG Oral Capsule (Neurontin) take one capsule (300 mg) by mouth twice a day 240 Capsule 2 3 Active Alfuzosin HCl ER 10 MG Oral Tablet Extended Release 24 Hour (Uroxatral) TAKE ONE TABLET BY MOUTH EVERY DAY TAKE AFTER SAME MEAL EACH DAY 90 Tablet 3 3 10/13/19 24 Active Additional Information Patient taking differently: 10 mg Oral HS, Reported on 03/24/2023 Rosuvastatin Calcium 40 MG Oral Tablet (Crestor) TAKE ONE TABLET BY MOUTH AT BEDTIME 90 Tablet 3 3 10/13/19 24 Active metFORMIN HCl 500 MG Oral Tablet (Glucophage) TAKE TWO TABLETS BY MOUTH TWICE A DAY 360 Tablet 3 3 10/13/19 24 Active Tadalafil 5 MG Oral Tablet (Cialis) TAKE ONE TABLET BY MOUTH EVERY DAY 90 Tablet 3 3 10/04/19 24 Active Glucose Blood In Vitro Strip TEST ONCE DAILY 100 Strip 3 3 09/27/19 24 Active OneTouch Delica Plus [id number] TEST BLOOD SUGAR ONCE DAILY 100 Each 6 2 07/08/20 23 Active Furosemide 40 MG Oral Tablet (Lasix) Take 1 tablet (40 mg) by mouth daily for Interstitial lung disease/pulmonary edema 90 Tablet 3 3 Active One-A-Day Mens (Minerals) Oral Tablet Take [...] each nostril once daily. 48 g 3 3 Active Benzonatate 100 MG Oral Capsule (Tessalon Perles) take 1 capsule by mouth three times a day As Needed for cough 90 Capsule 3 3 Active Morphine Sulfate 20 MG/5ML Oral Solution take 2.5 mg (0.625 mL) orally every 6 hours As Needed for dyspnea 100 mL 0 3 Active Additional Information Patient not taking.Reported on 06/15/2023 Pirfenidone 267 MG Oral Tablet (Esbriet) Take 3 Tablets by mouth in the morning and 3 Tablets at noon and 3 Tablets before bedtime. 3 times a day with meals - taking 2 tablets 3 times a day. 0 Active Pantoprazole Sodium 40 MG Oral Tablet Delayed Release (Protonix)Indicat ions:Aleman's esophagus without dysplasia Take 1 Tablet by mouth in the morning. 100 Tablet 3 3 Active Colesevelam HCl 625 MG Oral Tablet (Welchol)Indicati ons:Dyslipidemia, goal LDL below 70 Take 2 Tablets by mouth in the morning and 2 Tablets at noon and 2 Tablets in the evening. 600 Tablet 3 3 Active Ezetimibe 10 MG Oral Tablet (Zetia)Indication s:Dyslipidemia, goal LDL below 70 Take 1 Tablet by mouth in the morning. 100 Tablet 3 3 Active Mirtazapine 15 MG Oral Tablet (Remeron)Indicati ons:YELENA (generalized anxiety disorder) Take 1 Tablet by mouth at bedtime. 100 Tablet 3 3 Active LORazepam 0.5 MG Oral Tablet (Ativan) Take 1/2 tablet by mouth every 8 hours As Needed for anxiety due to resp failure from pulm fibrosis for 1 month 90 Tablet 0 3 Active Mirtazapine 7.5 MG Oral Tablet (Remeron) TAKE ONE TABLET BY MOUTH AT BEDTIME 90 Tablet 3 3 06/15/20 23 Discontinued documented as of this encounter (statuses as of 06/18/2023) Active Problems Problem Noted Date Diagnosed Date Chronic respiratory failure with hypoxia 023 documented as of this encounter (statuses as of 06/18/2023) Immunizations Name Administration Dates Next Due COVID-19 mRNA, LNP-s, No Pre serve, 2-Dose Series ([employer]) 04/18/2021,10/14/2020,09/17/2020 COVID-19, LNP-s, No Preserve , Karthik-sucrose, Ages 12+ ([employer]) 11/25/2021 COVID-19, MRNA-LNP, 23-24, P F, 30 MCG/0.3 mL, 12 YRS AND ABOVE, IM ([facility]) 05/09/2023 Covid-19, Mrna, Lnp-s, Pf, B ivalent, 30 Mcg, IM, 12 yrs and above ([employer]) 04/29/2022 HepA Inact/HepB Recomb>=18yrs old 12/29/2022,06/2023 Pneumococcal [...] Answer Date Recorded PHQ Adult Total Score 2 05/08/2023 Hunger Vital Sign Answer Date Recorded Within [...] on file documented as of this encounter Last Filed Vital Signs Vital Sign Reading Time Taken Comments Blood Pressure 86/48 06/15/2023 11:03 AM EST Pulse 104 06/15/2023 11:03 AM EST Temperature - - Respiratory Rate 14 06/15/2023 11:03 AM EST Oxygen Saturation 90% 06/15/2023 11:03 AM EST on 3L O2 Inhaled Oxygen Concentration - - Weight 59.4 kg (131 lb) 06/15/2023 11:03 AM EST Height - - Body Mass Index 20.07 03/24/2023 2:06 PM EDT documented in this encounter Progress Notes * Lena Mohan CRNP - 06/15/2023 11:21 AM EST 06/15/2023 Cardiology Follow Up Primary Hand Binder Stripper: Dr. Adams Cardiac Problems: CAD Left sided carotid endarterectomy Dyslipidemia Pulmonary fibrosis HPI: Sinan Hartley is a 73 year old male that presents for routine cardiology follow up. Last seen in our office by Dr. Adams 03/30/2022 to establish cardiac care with our office. Patienthas a history of prior CABG x4 at [facility] at the age of 36 in 1985. He had an incidental finding of severe asymptomatic left carotid disease and underwent a left carotid endarterectomyat [facility] in February of 1994. Since this time, patient has been diagnosed with idopathic pulmonary fibrosis and is currently on chronic O2 therapy. He has been seen out at the [facility] for possible lung transplant, but was told he did not meet criteria due to his coronary disease. Patient presents today with spouse. He denies any specific cardiac complaints or concerns. He is notably short of breath, but not in acute distress. He explains that he is following with palliative medicine who has prescribed morphine, but patent is afraid to use out of fear of side effects, but more specifically addiction properties. He further discussed his overall frustration that he just can not seem to do what he was once capable of. Patient's daughter was coming into town for the holiday and happens to be a physician. BP is low end of target, but patient remains asymptomatic. He reports compliance on all medication therapies with no untoward effects. REVIEW OF SYSTEMS: See HPI for pertinent positives. All others negative other than those noted in the HPI. CONSTITUTIONAL: No change in weight, No weakness, No fatigue and No fevers, No sweats or chills. PULMONARY: No cough, sputum, or hemoptysis, No wheezing, No shortness or breath and No recent change in breathing. CARDIOVASCULAR: No chest pain, No dyspnea on exertion, No edema, No palpitations and No syncope. GASTROINTESTINAL: No abdominal pain, No change in bowel habits, No significant heartburn, No nausea, No vomiting, No diarrhea, No constipation, No blood in stools or black tarry stools. No dysphagia. HEMATOLOGIC: No abnormal bleeding and No bruising. NEUROLOGICAL: Normal balance, No headaches and No weakness. Review of patient's allergies indicates: Allergen Reactions Merthiolate [Thimerosol] Hives and Rash Morphine Other Reaction(s): GI Upset Current Outpatient Medications Medication Sig Dispense Refill ferrous sulfate (FEOSOL) 325 (65 FE) MG Tablet Take 1 Tablet by mouth daily with breakfast. Three times a week vitamin c (ASCORBIC ACID) 500 MG Tablet Take 1 Tablet by mouth. Three times a week Aspirin EC 81 MG Oral Tablet Delayed Release Take 1 Tablet by mouth daily. 30 Tablet 11 Ipratropium [place] 0.03 % Nasal Solution (Atrovent) Administer 2 Sprays into each nostril in the morning and 2 Sprays before bedtime. 30 mL 3 Evolocumab 140 MG/ML Subcutaneous Solution Auto-injector ([employer]) INJECT 140 MG (1 PEN) UNDER THE SKIN EVERY 14 DAYS. REMOVE FROM REFRIGERATOR 30 MINUTES PRIOR TO INJECTION 6 mL 3 Gabapentin 300 MG Oral Capsule (Neurontin) take one capsule (300 mg) by mouth twice a day 240 Capsule 2 Alfuzosin HCl ER 10 MG Oral Tablet Extended Release 24 Hour (Uroxatral) TAKE ONE TABLET BY MOUTH EVERY DAY TAKE AFTER SAME MEAL EACH DAY (Patient taking differently: Take 1 Tablet by mouth at bedtime.) 90 Tablet 3 Rosuvastatin Calcium 40 MG Oral Tablet (Crestor) TAKE ONE TABLET BY MOUTH AT BEDTIME 90 Tablet 3 metFORMIN HCl 500 MG Oral Tablet (Glucophage) TAKE TWO TABLETS BY MOUTH TWICE A DAY 360 Tablet 3 Tadalafil 5 MG Oral Tablet (Cialis) TAKE ONE TABLET BY MOUTH EVERY DAY 90 Tablet 3 Glucose Blood In Vitro Strip TEST ONCE DAILY 100 Strip 3 OneTouch Delica Plus [id number] TEST BLOOD SUGAR ONCE DAILY 100 Each 6 Furosemide 40 MG Oral Tablet (Lasix) Take 1 tablet (40 mg) by mouth daily for Interstitial lung disease/pulmonary edema 90 Tablet 3 One-A-Day Mens (Minerals) Oral Tablet Take 1 Tablet by mouth daily. Lactobacillus Oral Tablet Take 1 Tablet by mouth in the morning. Cyanocobalamin 2500 MCG Oral Tablet Take 2,500 mcg by mouth in the morning. Folic Acid 0.8 MG Oral Capsule Take 1 Capsule by mouth 3 times a day. With meals Fish Oil 1200 MG Oral Capsule Take 1 Capsule by mouth daily. Coenzyme Q10 200 MG Oral Capsule Take 1 Capsule by mouth in the morning. Fluticasone Propionate 50 MCG/ACT Nasal Suspension (Flonase) Use 1-2 Sprays in each nostril once daily. 48 g 3 Benzonatate 100 MG Oral Capsule (Tessalon Perles) take 1 capsule by mouth three times a day As Needed for cough 90 Capsule 3 Pirfenidone 267 MG Oral Tablet (Esbriet) Take 3 Tablets by mouth in the morning and 3 Tablets at noon and 3 Tablets before bedtime. 3 times a day with meals - taking 2 tablets 3 times a day. Pantoprazole Sodium 40 MG Oral Tablet Delayed Release (Protonix) Take 1 Tablet by mouth in the morning. 100 Tablet 3 Colesevelam HCl 625 MG Oral Tablet (Welchol) Take 2 Tablets by mouth in the morning and 2 Tablets at noon and 2 Tablets in the evening. 600 Tablet 3 Ezetimibe 10 MG Oral Tablet (Zetia) Take 1 Tablet by mouth in the morning. 100 Tablet 3 Mirtazapine 15 MG Oral Tablet (Remeron) Take 1 Tablet by mouth at bedtime. 100 Tablet 3 LORazepam 0.5 MG Oral Tablet (Ativan) Take 1/2 tablet by mouth every 8 hours As Needed for anxiety due to resp failure from pulm fibrosis for 1 month 90 Tablet 0 Morphine Sulfate 20 MG/5ML Oral Solution take 2.5 mg (0.625 mL) orally every 6 hours As Needed for dyspnea (Patient not taking: Reported on 06/15/2023) 100 mL 0 No current facility-administered medications for this visit. Past Medical History: Diagnosis Date DKA, type 2 (HCC) Gallstones Idiopathic pulmonary fibrosis (HCC) INFORMATION hyperlipidemia INFORMATION coronary artery disease INFORMATION carotid stenosis INFORMATION sleep apnea Nephrolithiasis Family History Problem Relation Age of Onset Heart Disorder Mother CAD- smoker Diabetes Mother Heart Disorder Father NC Hyperlipidemia Father Other (Other) Sister right CEA Arthritis Sister Atrial fibrillation Sister Hyperlipidemia Daughter Social History Socioeconomic History Marital status: Tobacco Use Smoking status: Never Passive exposure: Past Smokeless tobacco: Never Substance and Sexual Activity Alcohol use: Not Currently Comment: none Drug use: No Social Determinants of Health Food Insecurity: No Food Insecurity (05/20/2023) Hunger Vital Sign Worried About Running Out of Food in the Last Year: Never true Ran Out of Food in the Last Year: Never true OBJECTIVE/PHYSICAL EXAMINATION: BP 86/48 | Pulse 104 | Resp 14 | Wt 59.4 kg (131 lb) | SpO2 90% Comment: on 3L O2 | BMI 20.07 kg/m | BSA 1.69 m General: No acute distress. A+Ox3. HEENT: Normocephalic. Atraumatic. PERRL. EOMI. Conjunctiva and sclera clear. NECK: No carotid bruits. No JVD. Carotid upstrokes are brisk. Heart: RRR. S1 and S2 noted. No murmur. No rubs or gallops. PMI non displaced. Lungs: Clear to auscultation. No wheezes.No rhonchi. No rales. Abdomen: Normal bowel sounds. Soft. Nontender. No masses or organomegaly. No abdominal bruits. Extremities: No edema. No clubbing or cyanosis. Pulses: radial=2/4, posterior tibial=2/4, dorsalis pedis = 2/4. NEURO: No focal deficits. PSYCH: Appropriate affect and insight. DATA Labs & Imaging Reviewed Below: EKG 05/11/2022 Normal sinus rhythm Possible Left atrial enlargement Incomplete right bundle branch block Borderline ECG When compared with ECG of 27-JUL-2021 13:13, No significant change was found Ventricular Rate: 88 ASSESSMENT/PLAN: 73 year old year old male 1. Coronary artery disease involving eklutna coronary artery of eklutna heart without angina pectoris -Stable from a cardiac standpoint. Continued worsening respiratory status due to pulmonary fibrosis -Continue current ASA therapy, Crestor and zetia - LIPID PANEL WITH DIRECT LDL IF TG IS HIGH; Future 2. History of left-sided carotid endarterectomy -as noted above, no complications 3. Dyslipidemia, goal LDL below 70 -Continue Crestor and zetia - LIPID PANEL WITH DIRECT LDL IF TG IS HIGH; Future DISPOSITION: Follow up 6 months or if symptoms worsen/fail to improve. All questions were answered to the patients satisfaction. Patient advised to report to ED with any and all emergencies. The patient agrees to the above plan and will call with additional questions or concerns. [facility], [address] [address] I spent a total of 43 minutes on the date of service in preparation, delivery, and documentation ofthe care provided to Sinan Hartley excluding any time spent in the performance of separately billed services. This chart was completed in part utilizing [employer] Speech Voice Recognition Software. Grammatical errors, random word insertions, pronoun errors, and incomplete sentences are an occasional consequence of this system due to software limitations, ambient noise, and hardware issues. Any formal questions or concerns about the content, text, or information contained within the body of this dictation should be directly addressed to the provider for clarification. documented in this encounter Nursing Notes * Shelby Perry LPN - 06/15/2023 11:00 AM EST Examination Room: 1 Name: Sinan Hartley Date of : 1950 Reason for Visit: Follow up Problems/Concerns: Statins/general questions regarding pmh Interim Hosp(s): denies Chest Pain/SOB: Denies CP, c/o sob MyChart Discussed: ALREADY ACTIVE Patient was instructed to not get up on the exam table until directed and assisted by their provider; patient is to remain seated in the chair/ wheelchair/ exam table for fall prevention and safety reasons. Patient is aware to have assistance to step down off exam table with personnel. documented in this encounter Plan of Treatment Upcoming Encounters Date Type Department Care Team (Late st Contact Info) Description 07/04/2023 3:30 PM EST Nutrition Services Nutrition Services [address] [address] Pearl Shay RDN [address] [place] [address] 07/04/2023 4:20 PM EST Office Visit Family Practice [address] [phone] Octavia Bah, DO [address] [place] [address] 07/15/2023 2:00 PM EST Nurse Only Ancillary [address] [address] College, Nurse Annual Wellness Visit [address] [address] 08/05/2023 2:40 PM EST Office Visit Sleep Disorders Ctr [facility] [address] [place] [phone] Joyce Arias, DO [address] [place] [address] Scheduled Orders Name Type Priority Associated Diagnoses Orde r Schedule LIPID PANEL WITH DIRECT LDL IF TG IS HIGH Lab Routine Dyslipidemia, goal LDL below 70 Coronary artery disease involving eklutna coronary artery of eklutna heart without angina pectoris Expected: 11/23/2023, Expires: 06/15/2024 Scheduled Procedures Name Priority Associated Diagnoses Date/Ti me COLONOSCOPY FLEXIBLE PROXIMAL DIAGNOSTIC Recall History of colon polyps Health Maintenance Due Date Last Done Comments Hepatitis C Screening 1968 Hepatitis B (3 of 3 - Hep B Twinrix risk 3-dose series) 05/31/2023 12/29/2022, 11/03/2022 Depression Screening 05/08/2024 05/08/2023 COLONOSCOPY-EVERY 5 YRS AGES 18-100 03/26/2025 03/26/2020, [...] Not on filedocumented as of this encounter Visit Diagnoses Diagnosis Coronary artery disease involving eklutna coronary artery of eklutna heart without angina pectoris- Primary History of left-sided carotid endarterectomy Chronic respiratory failure with hypoxia (HCC) Chronic respiratory failure Dyslipidemia, goal LDL below 70 Other and unspecified hyperlipidemia documented in this encounter Care Teams Api Architect Relationship Specialty Start Date End Date Octavia Bah DO [address] [place] [address] PCP - General Family Medicine 03/24/23 documented as of this encounter"
--- OUTSIDE RECORDS SUMMARY | 2023-07-01 03:05 | External Medical Summary | Summary of Care ---
Author Name Unknown Organization [facility] Address [address] [place] [address] Phone [phone] Care Team Providers Care Weight Loss Consultant Name Role Phone Octavia Bah DO Primary Care Provider Reason for Visit * Reason Onset Date Comments Advice 06/15/202306/22 Encounter Details Date Type Department Care Team (Late st Contact Info) Description 06/15/2023 Telephone Family Practice 65 [facility] [address] [place] [phone] Octavia Bah DO [address] [place] [address] Advice (06/22) Allergies Active Allergy Reactions Criticality Noted Date Comments Thimerosol Hives,Rash 12/25/2010 Morphine 01/04/2023 Other Reaction(s): GI Upset documented as of this encounter (statuses as of 06/22/2023) Medications Medication Sig Dispensed Refills Start Date [...] daily. 30 Tablet 11 07/27/2021 Active Ipratropium [place] 0.03 % Nasal Solution (Atrovent) Administer 2 Sprays into each nostril in the morning and 2 Sprays before bedtime. 30 mL 3 06/28/2022 Active Evolocumab 140 MG/ML Subcutaneous Solution Auto-injector ([employer]) INJECT 140 MG (1 PEN) UNDER THE [...] 3 09/27/2022 4 Active OneTouch Delica Plus [id number] TEST BLOOD SUGAR ONCE DAILY 100 Each [...] as of this encounter (statuses as of 06/22/2023) Active Problems Problem Noted Date Diagnosed Date Chronic respiratory failure with hypoxia 023 documented as of this encounter (statuses as of 06/22/2023) Immunizations Name Administration Dates Next Due COVID-19 mRNA, LNP-s, No Pre serve, 2-Dose Series ([employer]) 04/18/2021,10/14/2020,09/17/2020 COVID-19, LNP-s, No Preserve , Karthik-sucrose, Ages 12+ ([employer]) 11/25/2021 COVID-19, MRNA-LNP, 23-24, P F, 30 MCG/0.3 mL, 12 YRS AND ABOVE, IM ([facility] 05/09/2023 Covid-19, Mrna, Lnp-s, Pf, B ivalent, 30 Mcg, IM, 12 yrs and above ([employer]) 04/29/2022 HepA Inact/HepB Recomb>=18yrs old 12/29/2022,06/2023 Pneumococcal [...] Telephone Encounter - Octavia Bah DO - 06/22/2023 2:06 PM EST Great! Thanks Linda! * Telephone Encounter - Crystal Faust LPN - 06/22/2023 12:12 PM EST Patient states he will be available at home- number the rest of the day. [phone]. * Telephone Encounter - Crystal Faust LPN - 06/22/2023 10:40 AM EST Call placed to patient and notified him that Behavioral ermelinda has been trying to reach him. Patientstates he has not received any messages from behavioral health. Pt voiced frustration stated he received a list of over 100 providers from [place]. Patient is requesting a list of providers within 5 miles of [place]. Patient will need assistance with locating a provider. Will send to PCP, Linda Ramirez, and Case Management. * Telephone Encounter - Octavia Bah DO - 06/22/2023 10:33 AM EST Nursing, please let pt know that the behavioral health team has reached out twice to leave messages, most recently today. Please ask that he call them back. * Telephone Encounter - Octavia Bah DO - 06/22/2023 9:09 AM EST Per return note from Linda Alexander will be following patient. Linda, please reach out to aid pt with establishing a counselor. Thanks! * Telephone Encounter - Octavia Bah DO - 06/15/2023 3:32 PM EST Catherine, Pt notes that he had not heard back regarding f/u for counseling. Are you able to assist? Davon see you had attempted to call and he missed it. Thanks for trying again! documented in this encounter Plan of Treatment Upcoming Encounters Date Type Department Care Team (Late st Contact Info) Description 06/23/2023 2:00 PM EST Office Visit Family Practice [address] [place] [phone] [place], Health Financial Business Analyst Fam Prac [address] [place] [address] 06/24/2023 2:00 PM EST Office Visit Family Practice [address] [place] [phone] [place], Health Financial Business Analyst Yemi Prac [address] [place] [address] 07/04/2023 3:30 PM EST Nutrition Services Nutrition Services [address] [place] [address] Pearl Shay RDN [address] [place], [place] [address] [address] 07/04/2023 4:20 PM EST Office Visit Family Practice [address] [place] [phone] Octavia Bah DO [address] [place] [address] 07/15/2023 2:00 PM EST Nurse Only Ancillary 65 [facility] 293 [place] [address] College, Nurse Annual Wellness Visit [address] [place] [address] 08/05/2023 2:40 PM EST [facility] [phone] Joyce Arias DO 132 [facility] [address] Scheduled Procedures Name Priority Associated Diagnoses Date/Ti me COLONOSCOPY FLEXIBLE PROXIMAL DIAGNOSTIC Recall History of colon polyps Health Maintenance Due Date Last Done Comments Hepatitis C Screening 1968 Hepatitis B (3 of 3 - Hep B Twinrix risk 3-dose series) 05/31/2023 12/29/2022, 11/03/2022 Depression Screening 05/08/2024 06/22/2023 COLONOSCOPY-EVERY 5 YRS AGES 18-100 03/26/2025 [...] filedocumented as of this encounter Care Teams Weight Loss Consultant Relationship Specialty Start Date End Date Octavia Bah DO [address] [facility] [place] [address] PCP - General Family Medicine 03/24/23 documented as of this encounter
--- OUTSIDE RECORDS SUMMARY | 2023-07-01 03:05 | External Medical Summary | Summary of Care ---
Author Name Unknown Organization [facility] Address [address] [place] [address] Phone [phone] Care Team Providers Care Careers Adviser Name Role Phone Octavia Bah DO Primary Care Provider [phone] Encounter Details Date Type Department Care Team (Late st Contact Info) Description 06/24/2023 Documentation HEALTH & WELLNESS Marnie Dutton, Health Handle Bender Allergies Active Allergy Reactions Criticality Noted Date Comments Thimerosol Hives,Rash 12/25/2010 Morphine 01/04/2023 Other Reaction(s): GI Upset documented as of this encounter (statuses as of 06/24/2023) Medications Medication Sig Dispensed Refills Start Date [...] daily. 30 Tablet 11 07/27/2021 Active Ipratropium [place] 0.03 % Nasal Solution (Atrovent) Administer 2 Sprays into each nostril in the morning and 2 Sprays before bedtime. 30 mL 3 06/28/2022 Active Evolocumab 140 MG/ML Subcutaneous Solution Auto-injector ([employer] INJECT 140 MG (1 PEN) UNDER THE [...] 3 09/27/2022 4 Active OneTouch Delica Plus [id number] TEST BLOOD SUGAR ONCE DAILY 100 Each [...] as of this encounter (statuses as of 06/24/2023) Active Problems Problem Noted Date Diagnosed Date Chronic respiratory failure with hypoxia 023 documented as of this encounter (statuses as of 06/24/2023) Immunizations Name Administration Dates Next Due COVID-19 mRNA, LNP-s, No Pre serve, 2-Dose Series ([employer]) 04/18/2021,10/14/2020,09/17/2020 COVID-19, LNP-s, No Preserve , Karthik-sucrose, Ages 12+ ([employer]) 11/25/2021 COVID-19, MRNA-LNP, 23-24, P F, 30 MCG/0.3 mL, 12 YRS AND ABOVE, IM (PFIZER-Comirnaty) 05/09/2023 Covid-19, Mrna, Lnp-s, Pf, B ivalent, 30 Mcg, IM, 12 yrs and above (Pfizer) 04/29/2022 HepA Inact/HepB Recomb>=18yrs old 12/29/2022,06/2023 Pneumococcal [...] on file documented as of this encounter Progress Notes * Marnie Dutton, Health Handle Bender - 06/24/2023 3:04 PM EST SESSION TYPE: One-on-one exercise session: Exercise Subtype or Modality: Multi Exercise Weight: Blood pressure: Planned Exercise Routine: Cardio Trainin minutes of cardio on the compact strider and Upper Body Strength: bicep curls, chest presses, front arm raises, overhead presses, triceps extension Frequency: 2x week Duration: 30-45 minutes Patient completed a one-on-one exercise session which consisted of cardiovascular and resistance training. He tolerated exercise well and had no complaints. SO2 rest = 93-96% SO2 exercise = 89-91% documented in this encounter Plan of Treatment Upcoming Encounters Date Type Department Care Team (Late st Contact Info) Description 07/04/2023 3:30 PM EST Nutrition Services Nutrition Services [address] [address] Pearl Shay RDN [address] [place] [address] 07/04/2023 4:20 PM EST Office Visit Family Practice [address] [phone] Octavia Bah, DO [address] [place] [address] 07/15/2023 2:00 PM EST Nurse Only Ancillary [address] [address] College, Nurse Annual Wellness Visit [address] [address] 08/05/2023 2:40 PM EST Office Visit [facility] [place] [address] [employer] [place] [phone] Joyce Arias, DO 132 [facility] [place] [address] Scheduled Procedures Name Priority Associated Diagnoses Date/Ti [...] filedocumented as of this encounter Care Teams Careers Adviser Relationship Specialty Start Date End Date Octavia Bah DO [address] [facility] [place] [address] PCP - General Family Medicine 03/24/23 documented as of this encounter
--- OUTSIDE RECORDS SUMMARY | 2023-07-01 03:05 | External Medical Summary | Summary of Care ---
Author Name Unknown Organization [facility] Address [address] [place] [address] Phone [phone] Care Team Providers Care Senior Qa Automation Engineer Name Role Phone Octavia Bah DO Primary Care Provider [phone] Reason for Visit * Reason Onset Date Comments Advice 06/15/202306/22 Encounter Details Date Type Department Care Team (Late st Contact Info) Description 06/15/2023 Telephone Family Practice 65 [facility] 293 [place] [phone] Octavia Bah DO 293 [place] [address] Advice (06/22) Allergies Active Allergy Reactions Criticality [...] daily. 30 Tablet 11 07/27/2021 Active Ipratropium [place] 0.03 % Nasal Solution (Atrovent) Administer 2 Sprays into each nostril in the morning and 2 Sprays before bedtime. 30 mL 3 06/28/2022 Active Evolocumab 140 MG/ML Subcutaneous Solution Auto-injector (XYZE) INJECT 140 MG (1 PEN) UNDER THE [...] 3 09/27/2022 4 Active OneTouch Delica Plus [id number] TEST BLOOD SUGAR ONCE DAILY 100 Each [...] mRNA, LNP-s, No Pre serve, 2-Dose Series ([employer]) 04/18/2021,10/14/2020,09/17/2020 COVID-19, LNP-s, No Preserve , Karthik-sucrose, Ages 12+ ([employer]) 11/25/2021 COVID-19, MRNA-LNP, 23-24, P F, 30 MCG/0.3 mL, 12 YRS AND ABOVE, IM ([facility]) 05/09/2023 Covid-19, Mrna, Lnp-s, Pf, B ivalent, 30 Mcg, IM, 12 yrs and above ([employer]) 04/29/2022 HepA Inact/HepB Recomb>=18yrs old 12/29/2022,06/2023 Pneumococcal [...] home- number the rest of the day. [phone]. * Telephone Encounter - Crystal Faust LPN - 06/22/2023 10:40 AM EST Call placed to patient and notified him that Behavioral ermelinda has been trying to reach him. Patientstates he has not received any messages from behavioral health. Pt voiced frustration stated he received a list of over 100 providers from [place]. Patient is requesting a list of providers within 5 miles of [place]. Patient will need assistance with locating a [...] PM EST Office Visit Family Practice [address] [place] [phone] Jane, Health Food Tester Fam Prac [address] [place] [address] 06/24/2023 2:00 PM EST Office Visit Family Practice [address] [place] [address] Jane, Health Food Tester Fam Prac [address] [place] [address] 07/04/2023 3:30 PM EST Nutrition Services Nutrition Services [address] [place] [address] Pearl Shay RDN [address] [place] [address] 07/04/2023 4:20 PM EST Office Visit Family Practice [address] [place] [phone] Octavia Bah DO 293 [place] [address] 07/15/2023 2:00 PM EST Nurse Only Ancillary [address] [place] [address] College, Nurse Annual Wellness Visit [address] [place] [address] 08/05/2023 2:40 PM EST Office Visit [facility] [place] [address] [place] [phone] Joyce Arias DO [address] [place] [address] Scheduled Procedures Name Priority Associated Diagnoses Date/Ti [...] filedocumented as of this encounter Care Teams Senior Qa Automation Engineer Relationship Specialty Start Date End Date Octavia Bah DO [address] [place] [address] PCP - General Family Medicine 03/24/23 documented as of this encounter
--- OUTSIDE RECORDS SUMMARY | 2023-07-01 03:05 | External Medical Summary | Summary of Care ---
Author Name Unknown Organization [facility] Address [address] [place] [address] Phone [phone] Care Team Providers Care Sales Representative [employer] Name Role Phone Octavia Bah DO Primary Care Provider Reason for Visit * Reason Onset Date Comments Information 06/27/202306/27 Encounter Details Date Type Department Care Team (Late st Contact Info) Description 06/27/2023 11:15 AM EST Scheduled Telephone Family Practice 65 [facility] 293 [place] [address] College, Nurse [facility] Prac [address] [address] Arrived Allergies Active Allergy Reactions Criticality Noted [...] daily. 30 Tablet 11 07/27/2021 Active Ipratropium [place] 0.03 % Nasal Solution (Atrovent) Administer 2 Sprays into each nostril in the morning and 2 Sprays before bedtime. 30 mL 3 06/28/2022 Active Evolocumab 140 MG/ML Subcutaneous Solution Auto-injector ([employer]) INJECT 140 MG (1 PEN) UNDER THE [...] 3 09/27/2022 4 Active OneTouch Delica Plus [id number] TEST BLOOD SUGAR ONCE DAILY 100 Each [...] mRNA, LNP-s, No Pre serve, 2-Dose Series ([employer]) 04/18/2021,10/14/2020,09/17/2020 COVID-19, LNP-s, No Preserve , Karthik-sucrose, Ages 12+ ([employer]) 11/25/2021 COVID-19, MRNA-LNP, 23-24, P F, 30 MCG/0.3 mL, 12 YRS AND ABOVE, IM ([facility]) 05/09/2023 Covid-19, Mrna, Lnp-s, Pf, B ivalent, 30 Mcg, IM, 12 yrs and above ([employer]) 04/29/2022 HepA Inact/HepB Recomb>=18yrs old 12/29/2022,06/2023 Pneumococcal [...] upcoming appt as scheduled. Can discuss at [facility] tomorrow as well. * Telephone [...] not baseline. Reports he is going to [facility] tomorrowfor an appointment. Education provided [...] PM EST Nutrition Services Nutrition Services 65 [facility] 293 [facility], [place] [address] Pearl Shay RDN [address] [place] [address] [place] [phone] 07/04/2023 4:20 PM EST Office Visit Family Practice 65 [facility] 293 [facility], [place] [phone] Octavia Bah DO [address] [place] [address] 07/15/2023 2:00 PM EST Nurse Only Ancillary 65 [facility] 293 [place] [address] College, Nurse Annual Wellness Visit 65 [facility] 293 [place] [address] 08/05/2023 2:40 PM EST [facility] 132 [facility] [place] [phone] Joyce Arias, DO 132 [facility] [place] [address] Scheduled Procedures Name Priority Associated Diagnoses Date/Ti [...] filedocumented as of this encounter Care Teams Sales Representative [employer] Relationship Specialty Start Date End Date Octavia Bah DO [address] [place] [address] PCP - General Family Medicine 03/24/23 documented as of this encounter
--- OUTSIDE RECORDS SUMMARY | 2023-07-01 03:06 | External Medical Summary | Summary of Care ---
Author Name Unknown Organization [facility] Address [address] [place] [address] Phone [phone] Care Team Providers Care Patient Portal Representative Name Role Phone Octavia Bah DO Primary Care Provider [phone] Encounter Details Date Type Department Care Team (Late st Contact Info) Description 06/15/2023 Documentation HEALTH & WELLNESS Marnie Dutton, Health Long Chain Quiller Tender Allergies Active Allergy Reactions Criticality Noted Date Comments Thimerosol Hives,Rash 12/25/2010 Morphine 01/04/2023 Other Reaction(s): GI Upset documented as of this encounter (statuses as of 06/15/2023) Medications Medication Sig Dispensed Refills Start Date [...] daily. 30 Tablet 11 07/27/2021 Active Ipratropium [place] 0.03 % Nasal Solution (Atrovent) Administer 2 Sprays into each nostril in the morning and 2 Sprays before bedtime. 30 mL 3 06/28/2022 Active Evolocumab 140 MG/ML Subcutaneous Solution Auto-injector ([employer]) INJECT 140 MG (1 PEN) UNDER THE [...] 3 09/27/2022 4 Active OneTouch Delica Plus [id number] TEST BLOOD SUGAR ONCE DAILY 100 Each [...] as of this encounter (statuses as of 06/15/2023) Active Problems Problem Noted Date Diagnosed Date Chronic respiratory failure with hypoxia 023 documented as of this encounter (statuses as of 06/15/2023) Immunizations Name Administration Dates Next Due COVID-19 mRNA, LNP-s, No Pre serve, 2-Dose Series ([employer]) 04/18/2021,10/14/2020,09/17/2020 COVID-19, LNP-s, No Preserve , Karthik-sucrose, Ages 12+ ([employer]) 11/25/2021 COVID-19, MRNA-LNP, 23-24, P F, 30 [...] encounter Progress Notes * Marnie Dutton, Health Long Chain Quiller Tender - 06/15/2023 3:55 PM EST SESSION TYPE: One-on-one exercise session: Exercise Subtype or Modality: Multi Exercise Weight: Blood pressure: Planned Exercise Routine: Cardio Trainin minutes of cardio on the compact strider and Upper Body Strength: bicep curls, chest presses, front arm raises, overhead presses, triceps extensions with resistance band, resistance band rows, resistance band punches Frequency: 2x week Duration: 30-45 minutes Patient completed a one-on-one exercise session which consisted of cardiovascular and resistance training. He tolerated exercise well and had no complaints. SO2 rest = 93-96% SO2 exercise = 89-92% documented in this encounter Plan of Treatment Upcoming Encounters Date Type Department Care Team (Late st Contact Info) Description 07/04/2023 3:30 PM EST Nutrition Services Nutrition Services [address] [address] Pearl Shay RDN [address] [place] [address] 07/04/2023 4:20 PM EST Office Visit Family Practice [address] [phone] Octavia Bah, DO 293 [place] [address] 07/15/2023 2:00 PM EST Nurse Only Ancillary [address] [address] College, Nurse Annual Wellness Visit [address] [address] 08/05/2023 2:40 PM EST [facility] [phone] Joyce Arias, DO 132 [facility] [address] Scheduled Procedures Name Priority Associated Diagnoses Date/Ti [...] filedocumented as of this encounter Care Teams Patient Portal Representative Relationship Specialty Start Date End Date Octavia Bah DO [address] [place] [address] PCP - General Family Medicine 03/24/23 documented as of this encounter
--- NOTE | 2023-07-01 08:48 | Cardiology Consultation ---
Date of Consultation July 01, 2023 Assessment & Plan (1) Acute respiratory failure with hypoxia and hypercapnia: (2) Pulmonary fibrosis: (3) Right heart failure: (4) Elevated troponin: (5) ASCVD (arteriosclerotic cardiovascular disease): (6) Status post aorto-coronary artery bypass graft: (7) Dyslipidemia, goal LDL below 70: Plan Complex 73 year old male admitted with acute on chronic respiratory failure with hypoxia and hypercapnia. Patient with what appears to be end stage pulmonary fibrosis with multifactorial peripheral edema, suspected hypoalbuminemia and mild acute on chronic decompensated right failure failure. Elevated troponin reflects strain from the critical illness and not an overt ND. Recommend caution with administration of IV diuretic therapy. Continue aspirin and lipid lower therapies. Await resting echocardiography and evaluation by Dr. Maldonado. Overall prognosis appears grim. Supervising Physician Co-Signing Physician Notes Patient was seen and examined, chart, medications, telemetry reviewed Patient is a complex 73-year-old male with end-stage interstitial lung disease/pulmonary fibrosis admitted with increasing weakness fatigue and high oxygen demand Since admission increased oxygen and diuresis has led hypercarbic respiratory failure in addition to chronic hypoxic respiratory failure Troponins elevated likely secondary to demand based ischemia with known underlying coronary artery disease Echocardiogram demonstrates preserved LV systolic function with markedly dilated right heart and severe pulmonary hypertension Would hold on further diuresis Support respiratory status Overall prognosis poor with limited reversibility History of Present Illness Reason for Consultation: Acute respiratory failure, CAD Requesting Physician: Shona Cunningham Attending Physician: Dr. Keiry Donahue MD History of Present Illness Mr. Sinan Hartley is a 73 year old male who is being seen in cardiology consultation due to acute respiratory failure, elevated Troponin, known coronary artery disease. Limited was able to be obtained from the patient. Outpatient records as well as inpatient records and AM events noted and reviewed, now on CPAP therapy. Patient presented to the [facility] ER with worsening fatigue, weakness, and acute on chronic shortness of breath, progressive over the last three weeks, chronically with lower extremity edema from right heart failure. Patient no longer able to perform ADL's. Progressive marked weight loss noted along with early satiety. Confusion noted by . Earlier this morning patient was observed by the nurse to be obtunded with right sided neurologic deficit, unable to follow any commands. Stroke alert called Patient with end stage severe idiopathic pulmonary fibrosis, sleep apnea, ASCVD, carotid artery disease, hypertension, dyslipidemia, and type II diabete mellitus. Patient denies chest, angina, tachypalpitations, or PND. EKG if poor in quality, revealing normal sinus rhythm at 89 bpm. High sensitivity troponin as follows: 242.0 -> 272.2 -> 254.1 -> 182.7 pg/mL CXR with severe chronic/interstitial lung disease, significantly progressive diffuse airspace opacities CTA Chest negative for distinct PE, revealing worsening pulmonary fibrosis with superimposed pneumonia, more so through the bilateral lower lobes not excluded. Concern for possible acute cholecystitis also noted. Cardiac history includes probable familial hypercholesterolemia, severe dyslipidemia with a total cholesterol level of around 500 when he was in his 30s. He had an abnormal stress test that ultimately led to a cardiac catheterization performed at [facility], ultimately undergoing CABG x4 at the age of 36 in 1985. he was also found to have severe asymptomatic left carotid disease and underwent left carotid endarterectomy at [facility] in February 1994. Allergies Allergy/AdvReac Type Severity Reaction Status Date / Time No Known Allergies Allergy Verified 06/30/23 17:36 Home Medications Medication Instructions Recorded Confirmed Type folic acid 800 mcg tablet 0.8 mg PO TID 02/13/19 06/30/23 History fsaykomf-vi-ucoiu 300 mcg-K 60 1 tab PO QAM 02/13/19 06/30/23 History mcg-lycop 600 mcg-lutein 300 mcg tablet (Centrum Silver Ultra Men's) omega-3 acid ethyl esters 1 gram 1 cap PO QDL 02/13/19 06/30/23 History capsule ascorbic acid (vitamin C) 500 mg 500 mg PO 3XWK 02/21/19 06/30/23 History tablet ferrous sulfate 325 mg (65 mg 325 mg PO 3XWK 02/21/19 06/30/23 History iron) tablet cyanocobalamin (vitamin B-12) 2,500 mcg PO QAM 02/22/19 06/30/23 History 2,500 mcg tablet CPAP Machine #1 ea 07/04/19 06/09/23 Rx blood-glucose meter (OneTouch #1 ea 09/27/19 06/09/23 Rx Ultra2 Meter kit) coenzyme Q10 100 mg tablet 200 mg PO QAM 03/28/20 06/30/23 History lactobacillus combination no.9 4 4,000 mmu cells PO QAM 03/28/20 06/30/23 History billion cell capsule (Adult 50 Plus Probiotic) evolocumab 140 mg/mL subcutaneous 140 mg subcut .Q2WKS 02/22/22 06/30/23 History pen injector (Gabriele Downey) Flutter Valve #1 ea 03/01/22 06/09/23 Rx colesevelam 625 mg tablet 1,250 mg (2 x 625 mg) PO TID #540 07/30/22 06/30/23 Rx tabs ipratropium bromide 21 mcg (0.03 2 spray intranasal BID 09/21/22 06/30/23 History %) nasal spray CPAP Supplies #1 ea 10/12/22 06/09/23 Rx alfuzosin 10 mg tablet,extended 10 mg PO DAILY #90 tabs 10/13/22 06/30/23 Rx release 24 hr gabapentin 300 mg capsule 300 mg PO BID #240 caps 11/25/22 06/30/23 Rx furosemide 40 mg tablet (Lasix) 40 mg PO DAILY Interstitial lung 02/25/23 06/30/23 Rx disease/pulmonary edema #90 tabs benzonatate 100 mg capsule 100 mg PO TID PRN cough #90 caps 04/07/23 06/30/23 Rx morphine 20 mg/5 mL (4 mg/mL) oral 2.5 mg (0.625 mL) PO Q6H PRN 04/14/2302/13 Rx solution dyspnea #100 mL lorazepam 0.5 mg tablet 0.25 mg (1/2 x 0.5 mg) PO Q8H PRN 05/12/23 06/30/23 Rx anxiety due to resp failure from pulm fibrosis 1 month #90 tabs Oxygen Home #2 L 05/16/23 06/09/23 Rx aspirin 81 mg tablet,delayed 81 mg PO DAILY 06/30/23 06/30/23 History release ezetimibe 10 mg tablet 10 mg PO HS 06/30/23 06/30/23 History metformin 500 mg tablet 1,000 mg PO BID 06/30/23 06/30/23 History pantoprazole 40 mg tablet,delayed 40 mg PO QAM 06/30/23 06/30/23 History release pirfenidone 267 mg capsule 534 mg PO TID 06/30/23 06/30/23 History (Esbriet) rosuvastatin 40 mg tablet 40 mg PO HS 06/30/23 06/30/23 History lancets 30 gauge #100 ea 07/01/23 Rx Patient History Medical History Dyspnea Cachexia associated with pulmonary fibrosis IPF (idiopathic pulmonary fibrosis) Pulmonary hypertension Lower extremity edema Coronary artery disease Lung nodule, multiple Persistent dry cough Lower extremity edema CORIN on CPAP Iron deficiency anemia Aleman's esophagus without dysplasia History of anesthesia reaction "a little bit goes a long way" History of kidney stones BPH (benign prostatic hyperplasia) History of hiatal hernia Diabetes mellitus, type 2 NIDDM On anticoagulant therapy aspirin 325mg daily Hypertension Hyperlipidemia Obstructive sleep apnea CPAP Peripheral arterial disease Coronary artery disease FOLLOWS WITH PCP DR. QUAN Surgical History History of cataract surgery BILAT History of repair of right rotator cuff History of prostate biopsy benign Hx of vasectomy History of cystoscopy Status post laser lithotripsy of ureteral calculus History of colonoscopy History of esophagogastroduodenoscopy (EGD) History of tooth extraction History of wisdom tooth extraction History of left-sided carotid endarterectomy 1993 @ [place], [place]--90% blocked History of cardiac cath 1985 ---> CABG History of four vessel coronary artery bypass graft 1985 @ [place] Family History Father Myocardial infarction Prostate cancer Mother Family history of diabetes mellitus Hypertension Myocardial infarction Diabetes Other No family history of adverse response to anesthesia Denies family history of Ovarian cancer Breast cancer Lung cancer Colorectal cancer Stroke Social History Smoking Status: Never smoker Second Hand Exposure: No; Do You Dip or Chew Tobacco: No; Hx Alcohol Use: No Hx Substance Use: No Preferred Language: Norwegian Communication Ability: Effective Visual Impairment: Limited Hearing Ability: Normal Chief Controller Tower Required: No Beliefs That Will Affect Care: Spiritual marital status: Current Living Situation: Spouse Current Living Situation Comment: Lives with and adult daughter current occupational status: retired How many Children do You have: 3 Feels Safe at Home: Yes Childhood Exposure to Second-Hand Smoke: Yes Diet: regular caffeine: Yes Dental Care, Regularly: Yes Physical Activity Frequency: 3-4 Times per Week Seatbelt Use: always Sunscreen Use: Yes Assistive Devices: CPAP and Oxygen - Continuous Review of Systems Review of Systems: A complete and accurate review of systems was unable to be obtained due to the patient's acute illness/status. Physical Exam Physical Exam: General: Cachectic ill appearing. On CPAP, with purposeless movements of the upper extremities. HEENT: Normocephalic. Atraumatic. Eyes: Conjunctiva pink, sclera clear. Neck: Minimal JVD. Heart: RRR, 84 bpm. No murmur. No rub. Lungs: Dry crackles. No wheeze. Abdomen: +BS. Soft. Nontender. No masses or organomegaly. Extremities: 1+ edema bilaterally. No cyanosis of the lower extremities. Limited neurological examination is transient right lateral gaze. Pulses: radial=2/4, posterior tibial=0/4. Results & Data Vital Signs (Past 12 Hours) Vital Signs Pulse Pulse Resp BP BP Pulse Ox O2 Del Method 07/01/23 08:43 87 18 111/72 96 Nasal Cannula 07/01/23 07:00 87 24 92/64 L 97 07/01/23 07:00 85 07/01/23 06:00 90 22 104/69 97 07/01/23 04:18 76 22 94 07/01/23 03:30 93 H 28 H 94/69 L 97 07/01/23 02:41 89 24 99/65 L 96 CPAP 07/01/23 00:00 86 29 H 93/62 L 97 CPAP 06/30/23 23:42 81 36 H 91 06/30/23 23:10 74 O2 Flow Rate 07/01/23 08:43 3.5 07/01/23 07:00 07/01/23 07:00 07/01/23 06:00 07/01/23 04:18 6 07/01/23 03:30 07/01/23 02:41 07/01/23 00:00 06/30/23 23:42 7 06/30/23 23:10 Laboratory Results Cardiac Enzymes 06/30/23 06/30/23 06/30/23 Range/Units 16:14 16:15 20:04 AST 20 (13-39) U/L Troponin I High Sens 242.0 H* 272.2 H* (0-20) pg/ml B-Natriuretic Peptide 961 H (0-100) pg/ml 07/01/23 Range/Units 01:53 AST (13-39) U/L Troponin I High Sens 254.1 H* (0-20) pg/ml B-Natriuretic Peptide (0-100) pg/ml Coagulation 06/30/23 06/30/23 Range/Units 16:14 16:15 PT 14.0 H (9.0-12.0) Seconds APTT 25 (21-31) Seconds B-Natriuretic Peptide 961 H (0-100) pg/ml CBC 06/30/23 07/01/23 Range/Units 16:14 01:53 WBC 9.41 10.11 (4.8-10.8) K/ul RBC 3.49 L 3.59 L (4.70-6.10) M/uL Hgb 11.2 L 11.4 L (14.0-18.0) g/dl Hct 34.5 L 37.0 L (42.0-52.0) % Plt Count 226 218 (130-400) K/uL Neut # (Auto) 8.08 H (1.40-6.50) K/uL Lymph # (Auto) 0.63 L (1.20-3.40) K/uL Mckenzie # (Auto) 0.53 (0.11-0.59) K/uL Eos # (Auto) 0.09 (0.00-0.50) K/uL Baso # (Auto) 0.04 (0.00-0.20) K/uL Comprehensive Metabolic Panel 06/30/23 07/01/23 Range/Units 16:14 01:53 Sodium 141 139 (136-145) mmol/L Potassium 4.4 5.0 (3.5-5.1) mmol/L Chloride 105 102 (98-107) mmol/L Carbon Dioxide 29 33 H (21-32) mmol/L BUN 31 H 29 H (6-23) mg/dl Creatinine 0.74 0.77 (0.6-1.4) mg/dl Glucose 126 H 148 H (70-99(Fasting)) mg/dl Calcium 9.0 8.8 (8.6-10.3) mg/dl AST 20 (13-39) U/L ALT 12 (7-52) U/L Alkaline Phosphatase 56 (34-104) U/L Total Protein 6.9 (6.0-8.3) gm/dl Albumin 3.5 (3.4-5.0) gm/dl Intake and Output 06/30/23 07/01/23 07/01/23 22:59 06:59 14:59 Intake Total 1250 / 1505 255 / 1505 Output Total 700 / 2675 1974 Balance 550 / -1170 -1720 / -1170 Intake: IV 530 / 785 255 / 785 Azithromycin 500 mg In Dextrose 255 / 255 5% 250 ml @ 127.5 mls/hr IV Q24H [facility] Rx#:[id number] Vancomycin HCl 1,500 mg In 530 / 530 Sodium Chloride 0.9% 500 ml @ 200 mls/hr IV NOW ONE Rx#: [id number] Oral 720 / 720 0 / 720 Output: Urine 700 / 700 Urine Amount (Catheter) 1974 Childers/Indwelling 1974 Other: Weight 59 kg Weight Measurement Method Built in [facility] Diagnostic Findings November 03, 2022 TTE Conclusions: - Technically difficult exam due to body habitus. - Exam indication: Pre-lung tx - The left ventricle is normal in size. Left ventricular systolic function is normal. EF = 57 5% (2D biplane) Normal left ventricular diastolic function. - The right ventricle is normal in size. Right ventricular systolic function is normal. - The left atrial cavity is mildly dilated. - The right atrial cavity is dilated. - The visualized aorta is dilated with a maximal dimension of 4.1 cm. - Prominent anterior mitral annular calcification that extends to the aortic root. Mean mitral inflow gradient 2 mmHg. - Exam was compared with the prior echocardiographic exam performed on 02/09/2022. Similar findings. January 27, 2023 Cardiac Catheterization Conclusions: - Right common femoral artery subtotally occluded preventing right femoral access - Severe bois forte coronary artery disease including BAND BOOKER of LMT - Widely patent GALDAMEZ-LAD and CHERYL-LCx - Low-normal biventricular filling pressures - Normal cardiac index and PVR - Severe bois forte RCA disease in the RCA- highly calcified. February 04, 2023 [place] PET/CT Cardiac Perfusion Rest/Stress Conclusions: 1. PET Perfusion Study: Normal. 2. No evidence of ischemia. 3. No evidence of scarred myocardium. 4. Left ventricle is normal in size. The left ventricle systolic function is normal. 5. Right ventricle is mildly dilated. The right ventricle systolic function is normal. 6. This is a low risk scan. (3) Right heart failure Heart failure chronicity: acute on chronic Qualified Code(s): I50.813 - Acute on chronic right heart failure
[2023-07-01] MEDS ORDERED: CYANOCOBALAMIN (B-12) 2,500 MCG TABLET PO SCH (09:00)
[2023-07-01] MEDS ORDERED: ASCORBIC ACID 500 MG TAB PO SCH (09:00)
[2023-07-01] MEDS ORDERED: FUROSEMIDE 40 MG/4 ML VIAL IV SCH (09:00)
[2023-07-01] MEDS ORDERED: FERROUS SULFATE 325 MG TAB PO SCH (09:00)
[2023-07-01] MEDS ORDERED: MULTI VIT W/MINERALS LIQUID 15 ML UDC PO SCH (09:00)
[2023-07-01] MEDS ORDERED: OPTIRAY 320 125ml IV ONE (09:00)
--- NOTE | 2023-07-01 09:17 | Communication Note ---
Date of Service: July 01, 2023 CTA chest noting possible acute cholecystitis, recommending dedicated imaging. RUQ US ordered for follow up. RUQ US currently noting possible acute cholecystitis, recommending surgical consultation, possible HIDA. Antibiotics broadened for coverage with addition of Flagyl per bath mixer.
[2023-07-01 09:21] LABS: Hematocrit (blood only) 38.9 % (42.0-52.0); Hemoglobin 11.8 g/dl (14.0-18.0); Mean Corpuscular Hemoglobin 32.1 pg (25.0-34.0); Mean Corpuscular Hgb Conc 30.3 g/dL (32.0-36.0); Mean Corpuscular Volume 105.7 fL (80.0-100.0); Mean Platelet Volume 10.1 fL (9.4-12.4); Platelet Count 206 K/uL (130-400); RDW Coefficient of Variation 14.4 % (11.5-14.5); Red Blood Count 3.68 M/uL (4.70-6.10); White Blood Count 8.84 K/ul (4.8-10.8)
--- NOTE | 2023-07-01 09:23 | CT Scan Report ---
CT angio head wo/w CLINICAL HISTORY: 73 years-old Male with stroke alert. Acute strokelike symptoms COMPARISON STUDY: CTA neck of same day TECHNIQUE: Unenhanced axial CT scan of the brain is performed. Subsequently, following the IV adminis tration of 115 cc of Optiray, CT angiogram of the brain was performed from the skull base to the vert ex. Images are reviewed in the axial, sagittal, and coronal planes. 3-D MIPS images are created and a ssessed. IV contrast was administered without complication. All measurements were obtained according to NASCET criteria. A dose lowering technique was utilized adhering to the principles of ALARA. CT DOSE: 1265.28 mGy.cm FINDINGS: CT BRAIN: There is no acute intracranial hemorrhage, midline shift, hydrocephalus, intracranial mass, territori al ischemia or abnormal extra-axial collections. Involutional changes with white matter hypodensities suggestive of chronic microvascular ischemic disease. No abnormal intra-axial or extra-axial enhance ment. Cerebral vascular calcifications. Prior bilateral lens repair. Mastoid air cells and middle ea r cavities are clear. No calvarial fracture. Paranasal sinuses are clear. CT ANGIOGRAM OF THE BRAIN: The imaged bilateral internal carotid arteries are patent. The bilateral anterior and middle cerebral arteries are also patent. The vertebrobasilar system and posterior cerebral arteries are widely bob nt. There is no aneurysm, high-grade stenosis, or proximal branch occlusion identified. Dural sinuses appear patent. Pulmonary fibrosis with median sternotomy and cardiomegaly noted on the parasitology teacher localizer images. IMPRESSION: 1. No acute intracranial abnormality. 2. Unremarkable CTA of the head. ACT 112: Negative or not required by law. The above report was generated using voice recognition software. It may contain grammatical, syntax o r spelling errors. Electronically signed by: Juan Alberto Morris M.D. 07/01/2023 9:20 AM
--- NOTE | 2023-07-01 09:26 | CT Scan Report ---
NECK CTA HISTORY: Neurologic deficit. stroke alert TECHNIQUE: Multiaxial CT images of the neck were performed following the intravenous administration o f contrast to evaluate the major cervical vessels. 3D/MIP images were also obtained. Sagittal and cor onal reformats were reviewed. All measurements were calculated based on NASCET criteria. A dose low ering technique was utilized adhering to the principles of ALARA. COMPARISON STUDY: Carotid Doppler study 10/01/2019. FINDINGS: The aortic arch and proximal great vessels are widely patent. There is no significant sten osis, occlusion, or dissection identified within the bilateral common carotid or vertebral arteries. Moderate focal narrowing at the takeoff of the right subclavian artery due to the calcified plaque. T his demonstrates up to 50% stenosis. Mild to moderate calcified plaque within the right carotid bifur cation. This results in approximately 30% focal stenosis at the takeoff of the right internal carotid artery. The mid to distal right internal carotid artery is widely patent. Moderate calcified plaque within the proximal to mid left internal carotid artery without significant stenosis. However, there is a long segment of fusiform aneurysmal dilatation involving the proximal to mid internal carotid ar kyle which measures up to 14 mm in diameter. This segment of aneurysmal dilatation measures approxima tely 3 cm in length. There are poststernotomy changes. No acute fractures. Interstitial thickening se en throughout the lung apices with bronchiectasis. This favors pulmonary fibrosis. IMPRESSION: 1. No high-grade stenosis, occlusion, or dissection within the carotid or vertebral arteries. 2. Approximately fusiform aneurysmal dilatation of the proximal to mid left internal carotid artery m easuring up to 14 mm in diameter. 30% focal stenosis at the takeoff of the right internal carotid art yolie. 3. Chronic interstitial changes again noted within the lung apices. ACT 112: Negative or not required by law. Electronically signed by: Stefan Leon M.D. 07/01/2023 9:24 AM
[2023-07-01 09:27] LABS: Base Excess ABG 4.2 mEq/L (-9-1.8); HCO3 ABG 37 mmol/L (19-24); Oxygen Saturation ABG 99.3 % (90-95); PCO2 ABG 109 mmHg (35-46); PO2 ABG 244 mmHg (80-95)
[2023-07-01 09:30] LABS: Allen Test Pos (Pos)
[2023-07-01 09:32] LABS: pH ABG 7.14 (7.35-7.45)
[2023-07-01 09:34] LABS: INR 1.3 (0.9-1.1); Partial Thromboplastin Time 27 Seconds (21-31)
[2023-07-01 09:40] LABS: Acanthocytes 1+; Basophils # (auto) 0.02 K/uL (0.00-0.20); Basophils % (auto) 0.2 %; Echinocytes 1+; Immature Granulocytes # (auto) 0.04 K/uL (0.01-0.20); Immature Granulocytes % (auto) 0.5 %; Lymphocytes # (auto) 0.35 K/uL (1.20-3.40); Monocytes % (auto) 1.1 %; Neutrophils # (auto) 8.33 K/uL (1.40-6.50); Neutrophils % (auto) 94.2 %; Ovalocytes 1+
[2023-07-01] MEDS: FOLIC ACID 400 MCG TAB PO SCH (09:53)
[2023-07-01] MEDS: ASPIRIN 81 MG ECTAB PO SCH (09:53)
[2023-07-01] MEDS: INSULIN ASPART PER UNIT CHARGE SC SCH ×3 (09:53→18:05)
[2023-07-01 09:54] LABS: Albumin Globulin Ratio 1.1 (0.9-2); Albumin Level 3.5 gm/dl (3.4-5.0); BUN Creatinine Ratio 34.6 (10-20); Bilirubin,Total 0.3 mg/dl (0.2-1.0); Creatinine Clr Calc Pharmacy 68.8 ml/min; Est GFR (African American) 102.9 ml/min; Est GFR (Non-African American) 88.8 ml/min; Globulin 3.3 gm/dl (2.5-4.0); Magnesium 1.9 mg/dl (1.7-2.4); Potassium 5.2 mmol/L (3.5-5.1); Total Protein 6.8 gm/dl (6.0-8.3)
[2023-07-01] MEDS: PANTOprazole 40 MG TAB PO SCH (09:54)
[2023-07-01] MEDS: TAMSULOSIN HCL 0.4 MG CAP PO SCH (09:54)
[2023-07-01] MEDS: GABAPENTIN 300 MG CAP PO SCH ×2 (09:54→20:47)
[2023-07-01] MEDS: ADVANCED PROBIOTIC 1250 MG CAPSULE PO SCH (09:54)
[2023-07-01] MEDS: IPRATROPIUM BROMIDE NASAL SPRAY 0.06% 15ML NAE SCH ×2 (09:54→20:47)
[2023-07-01] MEDS ORDERED: metroNIDAZOLE 500 MG/100 ML BAG IV SCH (10:00)
[2023-07-01] MEDS: methylPREDNISolone 80 MG in SYRINGE 0 ML IV SCH ×3 (10:00→20:48)
[2023-07-01 10:07] LABS: Troponin I High Sensitivity 182.7 pg/ml (0-20)
[2023-07-01 10:23] LABS: Appearance Urine Clear (Clear); Bacteria Urine Automated Negative (Negative); Bilirubin Urine Negative (Negative); Blood Urine 2+ (Negative); Color Urine Yellow; Epithelial Cell Urine Auto >30 /lpf (0-5); Glucose Urine UA Negative (Negative); Ketones Urine Negative (Negative); Leukocyte Esterase Urine Negative (Negative); Nitrite Urine Negative (Negative); Protein Urine 1+ (Negative); Specific Gravity Urine > 1.045 (1.000-1.030); Urobilinogen Urine Negative (Negative); pH Urine 5.5 (4.5-7.5)
--- NOTE | 2023-07-01 11:21 | Hospitalist Progress Note ---
Date of Service July 01, 2023 Assessment & Plan (1) Acute metabolic encephalopathy: Plan: Has severe end-stage pulmonary fibrosis Noted to have questionable right facial droop and not being able to move the right sided extremities A stroke alert was called and he was evaluated by teleneurologist-no stroke identified CTA of the head and neck and CT of the head were unremarkable and no need to do an MRI on close less no further stroke symptoms are noticed Noted to have severe acidosis secondary to CO2 narcosis and likely cause for his acute metabolic and cephalopathy BiPAP administered and he will be moved to ICU 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 and the patient will be changed to DNR/DNI will be under hospice care on discharge Palliative care encounter The patient was seen by the palliative care service Has an extensive discussion with the family members by the palliative care provider Patient is made for comfort care only Transferred to third floor to continue comfort care (2) Dyspnea: (3) IPF (idiopathic pulmonary fibrosis): (4) CORIN on CPAP: (5) Coronary artery disease: (6) Hypertension: (7) Hyperlipidemia: (8) Type 2 diabetes mellitus: Plan: Acute worsening shortness of breath Idiopathic pulmonary fibrosis Acute on Chronic respiratory failure with hypoxia CORIN on CPAP -Admit to telemetry -Bio fire is negative for acute viral source -Wears 3L NC at baseline, currently requiring 6L, O2 sats 95% -CXR for possible multifocal pneumonia versus fluid overload, with increased edema in legs and progressive worsening shortness of breath presume this may be fluid related, BNP 961 - CT angio pending -Troponin elevated at 242 trend every 6 hours, no chest pain, no acute changes on EKG noted, unlikely ACS at this time, possible demand ischemia - Lasix and nitro 1 in paste administered in the ER, continue Lasix 40 mg IV, place Childers catheter for strict I's/O's, daily weights -Patient has been following with [facility] pulmonology started clinical trial recently-on pirfenidone 801mg TID for antifibrotic therapy. Pt also on morphine for air hunger and anxiety-Per pulm visit on 06/14 patient was reluctant to take it at that time, he is agreeable currently -Will consult Pulm here for management-appreciate input and recommendation -Patient is not on any steroids, consider -Ca 9.41, check procalcitonin -Follow blood culture, only 1 set obtained, obtain a second now - start IV cefepime and vancomycin, check MRSA nasal swab and if negative can DC Vanco -Has seen palliative care with [facility] as well per pulmonary medicine report as he is not a lung transplant candidate due to underlying cardiac comorbidities.-On -Sleep study has been ordered as an outpatient to see if CPAP pressures can be decreased and can wean off CPAP due to ongoing sinus issues - IV morphine for air hunger -Clinically not any better and in the morning a stroke alert was called as above -Remains critical and the prognosis is poor CAD HTN HLD - prior CABG x4 at [facility] at the age of 36 in 1985. He had an incidental finding of severe asymptomatic left carotid disease and underwent a left carotid endarterectomy at [facility] in February of 1994. -[place] [facility] [place] consult cardiology - On Repatha, colesevelam, baby aspirin, coenzyme Q10, ezetimibe, rosuvastatin - Lasix 40 mg daily - additional lasix given as above - Check Echo with elevated troponin and fluid overload on exam - pt reports having echo completed in January at [facility] but those results are not available for review -Appreciate cardiology input and recommendation -Will hold off any Lasix for now -Echo of the heart showed EF of 50 to 55% without any left ventricular wall motion abnormalities, right ventricle is severely dilated, right atrium is moderate to severely dilated, there is mild tricuspid regurgitation and right ventricular systolic pressure is severely elevated at more than 60 mmHg DM II - Last A1C was 6.9 on 05/11/23 - Hold po metformin, ISS with accucheck achs GERD - Cont PPI Anxiety - Morphine oral solution also to be utilized for air hunger - Gabapentin DVT ppx: teds, scds Lines: GI/FEN: CODE: FULL Admission and Anticipated Discharge Date Admission Date: June 30, 2023 Subjective 07/01/2023 The patient was seen and examined in emergency room He was noted to have a right facial droop and incoherent speech at around 8:25 AM and a stroke alert was called He was reviewed by the teleneurologist He has been less responsive and not been communicating well due to extreme lethargy and encephalopathy Review of Systems Review of Systems: Unobtainable due to cognitive status Physical Exam Physical Exam: Lying in bed with shallow deep breathing Constitutional: + ill appearing and + thin Eyes: PERRL, conjunctivae normal, anicteric sclerae ENMT: external ear and nose normal, oropharynx normal Neck: trachea midline, no thyromegaly Respiratory: + respiratory distress (Mild to moderate distress at rest) Auscultation: + diminished lung sounds (Very diminished airflow bilaterally) and + crackles (Fine crackles bilaterally) Cardiovascular: Rate/Rhythm: regular rate and regular rhythm; not tachycardic Heart Sounds: normal S1, normal S2 and + murmur Extremities: + edema (2+ edema bilaterally) Gastrointestinal (Abdomen): Inspection/Auscultation: normal bowel sounds; abdomen not distended Percussion/Palpation: abdomen soft; abdomen nontender Musculoskeletal: No acute arthritis involving any of the joint Neurologic: Alert and seems to be awake. Minimal movements of the right upper extremity and both lower extremities but no movement of the left upper extremity. No neck stiffness and no deviation of the eyes. No facial droop. Not been communicating and seems to be confused Lymphatic: no cervical or axillary lymphadenopathy Results & Data Results & Data Vital Signs (Past 12 Hours) Vital Signs Pulse Pulse Resp BP BP Pulse Ox O2 Del Method 07/01/23 10:06 83 20 106/73 93 CPAP 07/01/23 09:49 93 H 22 97 07/01/23 09:18 91 H 24 116/69 91 Nasal Cannula 07/01/23 08:43 87 18 111/72 96 Nasal Cannula 07/01/23 07:00 87 24 92/64 L 97 07/01/23 07:00 85 07/01/23 06:00 90 22 104/69 97 07/01/23 04:18 76 22 94 07/01/23 03:30 93 H 28 H 94/69 L 97 07/01/23 02:41 89 24 99/65 L 96 CPAP 07/01/23 00:00 86 29 H 93/62 L 97 CPAP 06/30/23 23:42 81 36 H 91 O2 Flow Rate FiO2 07/01/23 10:06 07/01/23 09:49 30 07/01/23 09:18 4 07/01/23 08:43 3.5 07/01/23 07:00 07/01/23 07:00 07/01/23 06:00 07/01/23 04:18 6 07/01/23 03:30 07/01/23 02:41 07/01/23 00:00 06/30/23 23:42 7 Laboratory Results Short CBC 06/30/23 07/01/23 07/01/23 Range/Units 16:14 01:53 08:44 WBC 9.41 10.11 8.84 (4.8-10.8) K/ul Hgb 11.2 L 11.4 L 11.8 L (14.0-18.0) g/dl Hct 34.5 L 37.0 L 38.9 L (42.0-52.0) % Plt Count 226 218 206 (130-400) K/uL BMP 06/30/23 07/01/23 07/01/23 16:14 01:53 08:44 Sodium 141 139 140 Potassium 4.4 5.0 5.2 H Chloride 105 102 102 Carbon Dioxide 29 33 H 36 H BUN 31 H 29 H 28 H Creatinine 0.74 0.77 0.81 Glucose 126 H 148 H 140 H Calcium 9.0 8.8 9.0 Liver Function 06/30/23 07/01/23 Range/Units 16:14 08:44 Total Bilirubin 0.3 0.3 (0.2-1.0) mg/dl AST 20 14 (13-39) U/L ALT 12 11 (7-52) U/L Alkaline Phosphatase 56 57 (34-104) U/L Albumin 3.5 3.5 (3.4-5.0) gm/dl Urine 07/01/23 Range/Units Unknown Urine Color Yellow Urine Appearance Clear (Clear) Urine pH 5.5 (4.5-7.5) Ur Specific [place] > 1.045 H (1.000-1.030) Urine Protein 1+ H (Negative) Urine Glucose (UA) Negative (Negative) Medications Administered Current Inpatient Medications Acetaminophen (Acetaminophen 325 Mg Tab) 650 mg PO Q4H PRN PRN Reason: Moderate Pain (Scale 4, 5, 6) Stop: 07/30/23 19:47 Ascorbic Acid (Ascorbic Acid 500 Mg Tab) 500 mg PO MoWeFr@0900 [facility] Stop: 07/31/23 08:59 Last Admin: 07/01/23 09:53 Dose: Not Given Aspirin (Aspirin 81 Mg Ectab) 81 mg PO DAILY [facility] Stop: 07/31/23 08:59 Last Admin: 07/01/23 09:53 Dose: Not Given Benzonatate (Benzonatate 100 Mg Capsule) 100 mg PO TID PRN PRN Reason: cough Stop: 07/30/23 19:47 Cyanocobalamin (Cyanocobalamin (B-12) 2,500 Mcg Tablet) 2,500 mcg PO QAM [facility] Stop: 07/31/23 08:59 Last Admin: 07/01/23 09:53 Dose: Not Given Dextrose (Dextrose 50% 50 Ml Syringe) 25 - 50 ml IV UD PRN; Protocol PRN Reason: Hypoglycemia Protocol Stop: 07/30/23 19:47 Ezetimibe (Ezetimibe 10 Mg Tab) 10 mg PO HS WILLA Stop: 07/30/23 20:59 Last Admin: 06/30/23 20:56 Dose: 10 mg Enoxaparin Sodium (Enoxaparin Inj 40 Mg/0.4 Ml Syr) 40 mg SQ Q24H WILL[facility] Stop: 07/30/23 20:59 Last Admin: 06/30/23 23:10 Dose: 40 mg Ferrous Sulfate (Ferrous Sulfate 325 Mg Tab) 325 mg PO MoWeFr@0900 [facility] Stop: 07/31/23 08:59 Last Admin: 07/01/23 09:53 Dose: Not Given Fish Oil (Coulters-3 (Purified Fish Oil) 1 Gm Cap) 1 gm PO QDL [facility] Stop: 07/31/23 11:29 Folic Acid (Folic Acid 400 Mcg Tab) 800 mcg PO TID [facility] Stop: 07/30/23 20:59 Last Admin: 07/01/23 09:53 Dose: Not Given Furosemide (Furosemide 40 Mg/4 Ml Vial) 40 mg IV QAM [facility] Stop: 07/02/23 08:59 Last Admin: 07/01/23 10:00 Dose: 40 mg Gabapentin (Gabapentin 300 Mg Cap) 300 mg PO BID [facility] Stop: 07/30/23 20:59 Last Admin: 07/01/23 09:54 Dose: Not Given Glucagon (Glucagon For Inj 1 Mg Vial) 1 mg SQ UD PRN; Protocol PRN Reason: Hypoglycemia Protocol Stop: 07/30/23 19:47 Glucose (Glucose 10 Tab/Tube) 4 - 8 tab PO UD PRN; Protocol PRN Reason: Hypoglycemia Treatment Stop: 07/30/23 19:47 Glucose (Glucose 40% Gel 15 Gm Tube) 15 - 30 gm PO UD PRN; Protocol PRN Reason: Hypoglycemia Protocol Stop: 07/30/23 19:47 Cefepime HCl 2,000 mg/ Syringe 20 mls @ 5 mls/min IV Q8H [facility]; Protocol Stop: 07/02/23 19:29 Last Admin: 07/01/23 02:50 Dose: 5 mls/min Methylprednisolone 80 mg/ (Syringe) 1.28 mls @ 1.5 mls/min IV TID WILL[facility] Stop: 07/30/23 20:59 Last Admin: 07/01/23 10:00 Dose: 1.5 mls/min Azithromycin 500 mg/ Dextrose 255 mls @ 127.5 mls/hr IV Q24H [facility] Stop: 07/07/23 20:59 Last Infusion: 07/01/23 00:55 Dose: Infused Metronidazole (Flagyl) 500 mg in 100 mls @ 100 mls/hr IV Q8H [facility]; Protocol Stop: 07/11/23 08:44 Last Admin: 07/01/23 10:09 Dose: 100 mls/hr Insulin Aspart (Insulin Aspart Per Unit Charge) 0 units SC ACHS [facility] Stop: 07/30/23 20:59 Last Admin: 07/01/23 09:53 Dose: Not Given Ipratropium [place] (Ipratropium [place] Nasal Pender 0.06% 15ml) 2 sprays JUAN JOSÉ BID [facility] Stop: 07/30/23 20:59 Last Admin: 07/01/23 09:54 Dose: Not Given Lactobacillus Acidophilus (Advanced Probiotic 1250 Mg Capsule) 2 cap PO QAM [facility] Stop: 07/31/23 08:59 Last Admin: 07/01/23 09:54 Dose: Not Given Miscellaneous (Carbohydrates For Hypoglycemia ) 15 - 30 gm PO UD PRN PRN Reason: Hypoglycemia Protocol Stop: 07/30/23 19:47 Miscellaneous (Colesevelam 625 Mg Tab: Order Awaiting Action) 1 each N/A QS [facility] Stop: 07/31/23 00:00 Last Admin: 07/01/23 00:07 Dose: Not Given Miscellaneous (Pirfenidone [Esbriet] 267mg Cap: Order Awaiting Action) 1 each N/A QS [facility] Stop: 07/31/23 00:00 Last Admin: 07/01/23 00:07 Dose: Not Given Morphine Sulfate (Morphine Sulfate 10 Mg/0.5 Ml Udp) 2.5 mg PO Q6H PRN PRN Reason: dyspnea Stop: 07/14/23 20:03 Multivitamins/Minerals (Multi Vit W/Minerals Liquid 15 Ml Udc) 15 ml PO QAM [facility] Stop: 07/31/23 08:59 Last Admin: 07/01/23 09:54 Dose: Not Given Ondansetron HCl (Ondansetron Inj 2 Mg/Ml 2 Ml Vial) 4 mg IV Q4H PRN PRN Reason: Nausea And Vomiting Stop: 07/30/23 19:47 Pantoprazole Sodium (Pantoprazole 40 Mg Tab) 40 mg PO QAM [facility] Stop: 07/31/23 08:59 Last Admin: 07/01/23 09:54 Dose: Not Given Rosuvastatin Calcium (Rosuvastatin Calcium 20 Mg Tab) 40 mg PO HS [facility] Stop: 07/30/23 20:59 Last Admin: 06/30/23 20:58 Dose: 40 mg Tamsulosin HCl (Tamsulosin Hcl 0.4 Mg Cap) 0.4 mg PO DAILY [facility] Stop: 07/31/23 08:59 Last Admin: 07/01/23 09:54 Dose: Not Given (2) Dyspnea Dyspnea type: shortness of breath Qualified Code(s): R06.02 - Shortness of breath (5) Coronary artery disease Coronary Disease-Associated Artery/Lesion type: ramona artery (7) Hyperlipidemia Hyperlipidemia type: unspecified Qualified Code(s): E78.5 - Hyperlipidemia, unspecified (8) Type 2 diabetes mellitus Diabetes mellitus complication status: without complication Diabetes mellitus mcfp insulin use: without mcfp use Qualified Code(s): E11.9 - Type 2 diabetes mellitus without complications
[2023-07-01] MEDS ORDERED: OMEGA-3 (PURIFIED FISH OIL) 1 GM CAP PO SCH (11:30)
--- NOTE | 2023-07-01 11:38 | Pulmonary Consultation ---
Date of Consultation July 01, 2023 Assessment & Plan (1) Acute respiratory failure with hypoxia and hypercapnia: (2) Pulmonary fibrosis: (3) Right heart failure: Heart failure chronicity: acute on chronic Qualified Code(s): I50.813 - Acute on chronic right heart failure (4) CHF (congestive heart failure): Heart failure chronicity: acute Heart failure type: unspecified Qualified Code(s): I50.9 - Heart failure, unspecified Plan I had a lengthy discussion with the patient, his and the patient's daughter over the phone who is a colorectal surgeon in [place]. They understand the nature of his disease and that he has essentially end-stage IPF at this time. We discussed potentially transitioning to comfort measures/hospice. Family is in agreement with these measures, but would like to continue with conservative treatment strategy including the prednisone and Lasix which I think is absolutely reasonable as he does seem to have some response to diuresis and also prednisone. He has had substantial weight loss over the last few months and essentially has failure to thrive. I spoke with patient's outpatient palliative care provider who will be seeing the patient in the ER later today. Continue BiPAP for now and transition to high flow cannula once he is more awake and alert. Judicious use of Ativan and morphine for shortness of breath and anxiety. History of Present Illness Reason for Consultation: Hypoxic and hypercapnic respiratory failure Attending Physician: Keiry Donahue MD History of Present Illness 73-year-old male with history of rapidly progressing idiopathic pulmonary fibrosis despite antifibrotic therapy presenting to the ER due to severe shortness of breath. He actually drove himself last night. This morning a code stroke alert was called due to encephalopathy. ABG was obtained which revealed hypercapnic respiratory failure and he was placed on BiPAP. He is able to answer my questions. His is at bedside. We had a lengthy discussion regarding his CODE STATUS and he is very clearly indicating to me that he would not want to be intubated or receive CPR/defibrillation in the event of a cardiopulmonary arrest. He endorses severe shortness of breath with minimal exertion. He does feel that his shortness of breath is a bit improved while on BiPAP. He has a chronic cough that is nonproductive. CT chest revealed progressive ILD with superimposed groundglass changes concerning for CHF. He is currently receiving IV Solu-Medrol, broad-spectrum antibiotics and Lasix. Allergies Allergy/AdvReac Type Severity Reaction Status Date / Time No Known Allergies Allergy Verified 06/30/23 17:36 Home Medications Medication Instructions Recorded Confirmed Type folic acid 800 mcg tablet 0.8 mg PO TID 02/13/19 06/30/23 History [id number] 300 mcg-K 60 1 tab PO QAM 02/13/19 06/30/23 History mcg-lycop 600 mcg-lutein 300 mcg tablet (Centrum Silver Ultra Men's) omega-3 acid ethyl esters 1 gram 1 cap PO QDL 02/13/19 06/30/23 History capsule ascorbic acid (vitamin C) 500 mg 500 mg PO 3XWK 02/21/19 06/30/23 History tablet ferrous sulfate 325 mg (65 mg 325 mg PO 3XWK 02/21/19 06/30/23 History iron) tablet cyanocobalamin (vitamin B-12) 2,500 mcg PO QAM 02/22/19 06/30/23 History 2,500 mcg tablet CPAP Machine #1 ea 07/04/19 06/09/23 Rx blood-glucose meter (3nderTouch #1 ea 09/27/19 06/09/23 Rx Ultra2 Meter kit) coenzyme Q10 100 mg tablet 200 mg PO QAM 03/28/20 06/30/23 History lactobacillus combination no.9 4 4,000 mmu cells PO QAM 03/28/20 06/30/23 History billion cell capsule (Adult 50 Plus Probiotic) evolocumab 140 mg/mL subcutaneous 140 mg subcut .Q2WKS 02/22/22 06/30/23 History pen injector (Gabriele Downey) Flutter Valve #1 ea 03/01/22 06/09/23 Rx lancets 30 gauge (OneTouch Delica #100 ea 06/22/22 06/09/23 Rx Lancets) colesevelam 625 mg tablet 1,250 mg (2 x 625 mg) PO TID #540 07/30/22 06/30/23 Rx tabs ipratropium bromide 21 mcg (0.03 2 spray intranasal BID 09/21/22 06/30/23 History %) nasal spray CPAP Supplies #1 ea 10/12/22 06/09/23 Rx alfuzosin 10 mg tablet,extended 10 mg PO DAILY #90 tabs 10/13/22 06/30/23 Rx release 24 hr gabapentin 300 mg capsule 300 mg PO BID #240 caps 11/25/22 06/30/23 Rx furosemide 40 mg tablet (Lasix) 40 mg PO DAILY Interstitial lung 02/25/2306/30 Rx disease/pulmonary edema #90 tabs benzonatate 100 mg capsule 100 mg PO TID PRN cough #90 caps 04/07/23 06/30/23 Rx morphine 20 mg/5 mL (4 mg/mL) oral 2.5 mg (0.625 mL) PO Q6H PRN 04/14/23 06/30/23 Rx solution dyspnea #100 mL lorazepam 0.5 mg tablet 0.25 mg (1/2 x 0.5 mg) PO Q8H PRN 05/12/23 06/30/23 Rx anxiety due to resp failure from pulm fibrosis 1 month #90 tabs Oxygen Home #2 L 05/16/23 06/09/23 Rx aspirin 81 mg tablet,delayed 81 mg PO DAILY 06/30/23 06/30/23 History release ezetimibe 10 mg tablet 10 mg PO HS 06/30/23 06/30/23 History metformin 500 mg tablet 1,000 mg PO BID 06/30/23 06/30/23 History pantoprazole 40 mg tablet,delayed 40 mg PO QAM 06/30/23 06/30/23 History release pirfenidone 267 mg capsule 534 mg PO TID 06/30/23 06/30/23 History (Esbriet) rosuvastatin 40 mg tablet 40 mg PO HS 06/30/23 06/30/23 History Patient History Medical History Dyspnea Cachexia associated with pulmonary fibrosis IPF (idiopathic pulmonary fibrosis) Pulmonary hypertension Lower extremity edema Coronary artery disease Lung nodule, multiple Persistent dry cough Lower extremity edema CORIN on CPAP Iron deficiency anemia Aleman's esophagus without dysplasia History of anesthesia reaction "a little bit goes a long way" History of kidney stones BPH (benign prostatic hyperplasia) History of hiatal hernia Diabetes mellitus, type 2 NIDDM On anticoagulant therapy aspirin 325mg daily Hypertension Hyperlipidemia Obstructive sleep apnea CPAP Peripheral arterial disease Coronary artery disease FOLLOWS WITH PCP DR. QUAN Surgical History History of cataract surgery BILAT History of repair of right rotator cuff History of prostate biopsy benign Hx of vasectomy History of cystoscopy Status post laser lithotripsy of ureteral calculus History of colonoscopy History of esophagogastroduodenoscopy (EGD) History of tooth extraction History of wisdom tooth extraction History of left-sided carotid endarterectomy 1993 @ [facility] [place]--90% blocked History of cardiac cath 1985 ---> CABG History of four vessel coronary artery bypass graft 1985 @ [facility] Family History Father Myocardial infarction Prostate cancer Mother Family history of diabetes mellitus Hypertension Myocardial infarction Diabetes Other No family history of adverse response to anesthesia Denies family history of Ovarian cancer Breast cancer Lung cancer Colorectal cancer Stroke Social History Smoking Status: Never smoker Second Hand Exposure: No; Do You Dip or Chew Tobacco: No; Hx Alcohol Use: No Hx Substance Use: No Preferred Language: Urdu Communication Ability: Effective Visual Impairment: Limited Hearing Ability: Normal Pharmacy Operations Specialist Required: No Beliefs That Will Affect Care: None marital status: Current Living Situation: Spouse Current Living Situation Comment: Lives with and adult daughter current occupational status: retired How many Children do You have: 3 Feels Safe at Home: Yes Childhood Exposure to Second-Hand Smoke: Yes Diet: regular caffeine: Yes Dental Care, Regularly: Yes Physical Activity Frequency: 3-4 Times per Week Seatbelt Use: always Sunscreen Use: Yes Assistive Devices: CPAP and Oxygen - Continuous Review of Systems Review of Systems: All systems reviewed & are unremarkable except as noted in HPI & below Physical Exam Physical Exam: Constitutional: Patient appears to be of their stated age. Cachectic. In severe distress with dyspnea. Eyes: Pupils are equal round and reactive to light. Conjunctivae are normal. Anicteric sclera. Ears nose, mouth and throat: Mallampati class 1. Normal posterior oropharynx. Uvula is midline. Neck: Trachea is midline. Visual inspection is normal. Respiratory: Crackles bilaterally. Increased work of breathing. Cardiovascular: Regular rate and rhythm. No murmurs. No edema. Gastrointestinal: Normal bowel sounds, soft, nontender and nondistended. No hepatosplenomegaly noted. Musculoskeletal: No cyanosis. Patient is able to move all extremities. Strength is 5 out of 5 in the upper and lower extremities. Skin: No rashes, warm dry and intact. Neurologic: No obvious focal neurological deficits seen. Psychiatric: Alert and oriented x3 with a euthymic affect. Results & Data Results & Data Vital Signs (Past 12 Hours) Vital Signs Pulse Pulse Resp BP BP Pulse Ox O2 Del Method 07/01/23 10:06 83 20 106/73 93 CPAP 07/01/23 09:49 93 H 22 97 07/01/23 09:18 91 H 24 116/69 91 Nasal Cannula 07/01/23 08:43 87 18 111/72 96 Nasal Cannula 07/01/23 07:00 87 24 92/64 L 97 07/01/23 07:00 85 07/01/23 06:00 90 22 104/69 97 07/01/23 04:18 76 22 94 07/01/23 03:30 93 H 28 H 94/69 L 97 07/01/23 02:41 89 24 99/65 L 96 CPAP 07/01/23 00:00 86 29 H 93/62 L 97 CPAP 06/30/23 23:42 81 36 H 91 O2 Flow Rate FiO2 07/01/23 10:06 07/01/23 09:49 30 07/01/23 09:18 4 07/01/23 08:43 3.5 07/01/23 07:00 07/01/23 07:00 07/01/23 06:00 07/01/23 04:18 6 07/01/23 03:30 07/01/23 02:41 07/01/23 00:00 06/30/23 23:42 7 PG Care Time/CCT Total # of Minutes Spent Total Time Spent with Patient: Total time spent is greater than 50% in coordination of care (as documented) at patient's floor/unit and/or counseling patient: Coding Level of Care Code 99457 INT INP/OBS CARE 3/75MIN Diagnoses Acute respiratory failure with hypoxia and hypercapnia J96.01; J96.02 Pulmonary fibrosis J84.10 Acute on chronic right-sided heart failure I50.813 Heart failure chronicity: acute on chronic CHF (congestive heart failure) I50.9 Heart failure chronicity: acute Heart failure type: unspecified
[2023-07-01] MEDS ORDERED: ONDANSETRON INJ 2 MG/ML 2 ML VIAL IV PRN (11:48)
[2023-07-01] MEDS ORDERED: MoRPHine SULFATE 10 MG/0.5 ML UDP PO PRN (11:48)
[2023-07-01] MEDS ORDERED: MoRPHine SULFATE 2 MG/ML CARP IV PRN (11:48)
[2023-07-01] MEDS ORDERED: ONDANSETRON 4 MG OD TAB SL PRN (11:48)
[2023-07-01] MEDS ORDERED: GLYCOPYRROLATE 0.2 MG/ML VIAL IV PRN (11:53)
--- NOTE | 2023-07-01 12:28 | Electrocardiogram Report ---
Test Reason : Blood Pressure : / mmHG Vent. Rate : 089 BPM Atrial Rate : 089 BPM P-R Int : 150 ms QRS Dur : 090 ms QT Int : 476 ms P-R-T Axes : 047 -06 -73 degrees QTc Int : 579 ms Poor data quality, interpretation may be adversely affected Normal sinus rhythm Abnormal ECG No previous ECGs available Confirmed by René Malcolm ([id number]) on 07/01/2023 12:28:43 PM Referred By: Confirmed By:René Malcolm
--- NOTE | 2023-07-01 12:30 | Palliative Care Consultation ---
Date of Consultation July 01, 2023 Assessment & Plan (1) Dyspnea and respiratory abnormalities: (2) Palliative care by specialist: (3) Advanced care planning/counseling discussion: I met with patient's at the bedside for 40 minutes [id number] for an advance care planning discussion. Patient is not able to participate in discussion due to the severity of his illness, lethargy and BiPAP is in place. We discussed his overall progression and decline. We talked about the nature of ILD and how these changes in patient conditions can sometimes be very rapid and aggressive. We note that he has had a rather precipitous decline in more recent weeks. He has not been able to tolerate the same activities and therapies he was able to do prior. His family has been notified and daughters are en route. 1 daughter does live on the [facility] and is making travel arrangements to [place] from [place]. His other daughter is a colorectal surgeon in [facility] and is finishing out her caseload in the OR for today before making plans to come to [place]. Likelihood of the earliest arrival of one of his daughters will be late tonight and likely tomorrow for the remainder of his family. Patient's for now feels supported by the hospital staff. She plans to remain at the bedside for as long as she is able but feels she does need to go home to try and get some rest. I encouraged her very strongly to take some time to rest and to also take care of herself. I also assured her that if there is anything she needed especially in terms of something to eat or drink or even just someone to speak with, to reach out to the hospital staff as we could provide her with those supportive resources. Patient's does not want him to suffer. We have had numerous conversations about the inevitability of reaching a point like this in our outpatient appointments. Patient was very clear that should he be in an end-of-life process he would not want to be resuscitated or placed on artificial life support. She reaffirms today no code election. We also discussed that it is possible he may continue to decline in spite of the escalated treatments of BiPAP, IV antibiotics, IV steroids. She is aware of this and notes that she is only hoping that maybe these therapies will buy enough time for the children to arrive. We agreed to a time-limited trial of no longer than 48 hours to see if the current interventions can cause some improvement. If we see some improving signs in the next 24 to 48 hours then we can try to continue along the current regimen to see how much better he can get. Should he have any decline or no improvement then she wants him to be continued on a comfort plan of care. She wants the focus of this admission to be on comfort and understands that it is most likely he will through this admission. She does not anticipate being able to bring him home. Her daughters have been updated about this as well. The family is in agreement with a comfort focused plan of care I would like to assure that he does not struggle or suffer especially with dyspnea crisis, pain or anxiety. Comfort care orders have been written. Patient is awaiting bed placement. (4) Anxiety: (5) IPF (idiopathic pulmonary fibrosis): (6) Pulmonary hypertension: (7) Coronary artery disease: Coronary Disease-Associated Artery/Lesion type: [place] artery (8) Right heart failure: Heart failure chronicity: acute on chronic Qualified Code(s): I50.813 - Acute on chronic right heart failure (9) CHF (congestive heart failure): Heart failure chronicity: acute Heart failure type: unspecified Qualified Code(s): I50.9 - Heart failure, unspecified (10) Cachexia associated with pulmonary fibrosis: Plan * Sinan Hartley is a 73-year-old male with a terminal end-stage pulmonary fibrosis currently admitted from home with acute on chronic hypercapnic and hypoxemic respiratory failure. He is lethargic and not responding at this time. proBNP is elevated. Chest x-ray does confirm progression of pulmonary fibrosis along with a possible superimposed pneumonia. He is being treated with diuretics and IV antibiotics. BiPAP is in place. It is unlikely that he will survive this admission. Overall prognosis is grim. He has been evaluated by both pulmonary and cardiology teams. Consensus overall is that of a very poor prognosis likely short anticipated survival. * is aware and would like to assure that patient is comfortable. We will admit him to the hospital for comfort care and continue a time-limited trial of therapies with the antibiotics and steroids. I had a lengthy discussion with his at the bedside. * We agreed that should he have any decline, we we will assure that he is comfortable I will leave any symptoms of distress. In the next 24 to 48 hours, we will continue the IV antibiotics, steroids and BiPAP in hopes of allowing some time for his family to arrive noting that 1 daughter [place] needs to make travel arrangements to fly home. * She is very aware that patient may in spite of these interventions. She is hopeful that they will buy some time and that maybe his mentation will improve enough to be able to visit with his daughters and say goodbye. * She would like the overall focus of this admission to be comfort care. * She is open to the addition of hospice if the general inptl hospice admission could be considered however I would note that the continuation of IV steroids, antibiotics and BiPAP may not be in line with general inpatient hospice plan of care. * For now, we will admit him for comfort care, do a time-limited trial 48 hours of the regimens in place at this time, I have stopped all nonessential and on comfort focused therapies. He does not need any labs or further testing. Continue BiPAP, IV antibiotics and steroids. Assure comfort. Comfort medications have been ordered for more aggressive symptom management should his dyspnea crisis worsen. * I have updated the primary medicine team, pulmonary medicine * Please note: the above document was generated using voice recognition software. It may contain unintentional grammatical, syntax or spelling errors. Any formal questions or concerns about the content, text or information contained within the body of this dictation should be directly addressed to the provider for clarification. Thank you for allowing us to participate in the ongoing care of this patient. Please don't hesitate to call or page with any additional concerns. Dr. Gely Jones DNP Director, Palliative Care History of Present Illness Reason for Consultation: ILD Requesting Physician: Perico Attending Physician: Keiry Donahue MD History of Present Illness Sinan Hartley is a 73-year-old gentleman with advanced interstitial lung disease well-known to me from outpatient palliative medicine clinic. Patient is seen bedside in the ED, B04, with his present at the bedside. She tells me he has been declining since last weekend. He is growing weaker, at times a little more confused, and general malaise was noted. He seemed to be resting more. He declined to go to his [employer] [facility] PT sessions as well as engage in home therapies. They were preparing for a trip out to [facility] when he suddenly decided not to go and states it was at this time she realized he was getting significantly sicker. She notes that he was getting increasingly dyspneic and unable to travel even short distances, for example from bedside to the toilet. He was struggling to use a walker. He needed substantial help going from his recliner chair to his bed. He also started to have a cough. He started to become very confused and was saying things that did not make sense such as "go get the checkbook because I need something to hold onto to be able to walk there." She called [facility] to express the concerns about his changing symptoms and the fact that they did not feel they could make the trip out there, and then were advised to come to the ER for further evaluation. So far, testing is negative for an acute viral source. His chest x-ray does suggest a possible multifocal pneumonia plus minus fluid volume overload with increased edema noted in his bilateral lower extremities. His BNP is 961. Troponin is elevated to 42 but it is recognized that he has substantial cardiac history. He had a prior CABG at [facility] at the age of 36 in 1985. He had an incidental finding of very severe asymptomatic left carotid disease and underwent a left carotid endarterectomy in February 1994. He is followed by Dr. Adams as an outpatient for cardiology. Mr. Hartley now has worsening acute on chronic hypoxic and hypercapnic respiratory failure. pCO2 was 107. He has end-stage, terminal pulmonary fibrosis which is now complicated by further end organ failure/heart failure, suspected hypoalbuminemia, and acute on chronic decompensated right heart failure. Overall prognosis is noted to be grim. Mrs. Hartley has been updated about this and also communicated with their children. One of their daughters lives in [place] and is currently making travel arrangements to fly home. Another daughter, is a colorectal surgeon in [facility], is finishing out her OR caseload for today and will be traveling to [place] thereafter, arrival time is likely late tonight or early tomorrow. Their third daughter lives at home with them but is very nervous and anxious to come to the hospital and will likely therefore wait until her sisters arrive before coming together with them. Allergies Allergy/AdvReac Type Severity Reaction Status Date / Time No Known Allergies Allergy Verified 06/30/23 17:36 Home Medications Medication Instructions Recorded Confirmed Type folic acid 800 mcg tablet 0.8 mg PO TID 02/13/19 06/30/23 History kstbjxux-cq-tcyad 300 mcg-K 60 1 tab PO QAM 02/13/19 06/30/23 History mcg-lycop 600 mcg-lutein 300 mcg tablet (Centrum Silver Ultra Men's) omega-3 acid ethyl esters 1 gram 1 cap PO QDL 02/13/19 06/30/23 History capsule ascorbic acid (vitamin C) 500 mg 500 mg PO 3XWK 02/21/19 06/30/23 History tablet ferrous sulfate 325 mg (65 mg 325 mg PO 3XWK 02/21/19 06/30/23 History iron) tablet cyanocobalamin (vitamin B-12) 2,500 mcg PO QAM 02/22/19 06/30/23 History 2,500 mcg tablet CPAP Machine #1 ea 07/04/19 06/09/23 Rx blood-glucose meter (BeanJockeyTouch #1 ea 09/27/19 06/09/23 Rx Ultra2 Meter kit) coenzyme Q10 100 mg tablet 200 mg PO QAM 03/28/20 06/30/23 History lactobacillus combination no.9 4 4,000 mmu cells PO QAM 03/28/20 06/30/23 History billion cell capsule (Adult 50 Plus Probiotic) evolocumab 140 mg/mL subcutaneous 140 mg subcut .Q2WKS 02/22/22 06/30/23 History pen injector (Gabriele Downey) Flutter Valve #1 ea 03/01/22 06/09/23 Rx lancets 30 gauge (OneTouch Delica #100 ea 06/22/22 06/09/23 Rx Lancets) colesevelam 625 mg tablet 1,250 mg (2 x 625 mg) PO TID #540 07/30/22 06/30/23 Rx tabs ipratropium bromide 21 mcg (0.03 2 spray intranasal BID 09/21/22 06/30/23 History %) nasal spray CPAP Supplies #1 ea 10/12/22 06/09/23 Rx alfuzosin 10 mg tablet,extended 10 mg PO DAILY #90 tabs 10/13/22 06/30/23 Rx release 24 hr gabapentin 300 mg capsule 300 mg PO BID #240 caps 11/25/22 06/30/23 Rx furosemide 40 mg tablet (Lasix) 40 mg PO DAILY Interstitial lung 02/25/23 06/30/23 Rx disease/pulmonary edema #90 tabs benzonatate 100 mg capsule 100 mg PO TID PRN cough #90 caps 04/07/23 06/30/23 Rx morphine 20 mg/5 mL (4 mg/mL) oral 2.5 mg (0.625 mL) PO Q6H PRN 04/14/23 06/30/23 Rx solution dyspnea #100 mL lorazepam 0.5 mg tablet 0.25 mg (1/2 x 0.5 mg) PO Q8H PRN 05/12/23 06/30/23 Rx anxiety due to resp failure from pulm fibrosis 1 month #90 tabs Oxygen Home #2 L 05/16/23 06/09/23 Rx aspirin 81 mg tablet,delayed 81 mg PO DAILY 06/30/23 06/30/23 History release ezetimibe 10 mg tablet 10 mg PO HS 06/30/23 06/30/23 History metformin 500 mg tablet 1,000 mg PO BID 06/30/23 06/30/23 History pantoprazole 40 mg tablet,delayed 40 mg PO QAM 06/30/23 06/30/23 History release pirfenidone 267 mg capsule 534 mg PO TID 06/30/23 06/30/23 History (Esbriet) rosuvastatin 40 mg tablet 40 mg PO HS 06/30/23 06/30/23 History Patient History Medical History Dyspnea Cachexia associated with pulmonary fibrosis IPF (idiopathic pulmonary fibrosis) Pulmonary hypertension Lower extremity edema Coronary artery disease Lung nodule, multiple Persistent dry cough Lower extremity edema CORIN on CPAP Iron deficiency anemia Aleman's esophagus without dysplasia History of anesthesia reaction "a little bit goes a long way" History of kidney stones BPH (benign prostatic hyperplasia) History of hiatal hernia Diabetes mellitus, type 2 NIDDM On anticoagulant therapy aspirin 325mg daily Hypertension Hyperlipidemia Obstructive sleep apnea CPAP Peripheral arterial disease Coronary artery disease FOLLOWS WITH PCP DR. QUAN Surgical History History of cataract surgery BILAT History of repair of right rotator cuff History of prostate biopsy benign Hx of vasectomy History of cystoscopy Status post laser lithotripsy of ureteral calculus History of colonoscopy History of esophagogastroduodenoscopy (EGD) History of tooth extraction History of wisdom tooth extraction History of left-sided carotid endarterectomy 1993 @ [facility]--90% blocked History of cardiac cath 1985 ---> CABG History of four vessel coronary artery bypass graft 1985 @ [facility] Family History Father Myocardial infarction Prostate cancer Mother Family history of diabetes mellitus Hypertension Myocardial infarction Diabetes Other No family history of adverse response to anesthesia Denies family history of Ovarian cancer Breast cancer Lung cancer Colorectal cancer Stroke Social History Smoking Status: Never smoker Second Hand Exposure: No; Do You Dip or Chew Tobacco: No; Hx Alcohol Use: No Hx Substance Use: No Preferred Language: Frisian Communication Ability: Effective Visual Impairment: Limited Hearing Ability: Normal Cupola Melting Supervisor Required: No Beliefs That Will Affect Care: None marital status: Current Living Situation: Spouse Current Living Situation Comment: Lives with and adult daughter current occupational status: retired How many Children do You have: 3 Feels Safe at Home: Yes Childhood Exposure to Second-Hand Smoke: Yes Diet: regular caffeine: Yes Dental Care, Regularly: Yes Physical Activity Frequency: 3-4 Times per Week Seatbelt Use: always Sunscreen Use: Yes Assistive Devices: CPAP and Oxygen - Continuous Review of Systems Review of Systems: Unobtainable due to reduced consciousness (Mr. Hartley is lethargic, wearing BiPAP and does not respond to verbal or noxious stimuli at this time. His pCO2 was noted to be 107.) Physical Exam Physical Exam: Cachectic, frail-appearing elderly male, lying in bed, lethargic and not responding, BiPAP in place. Bitemporal wasting noted. Neck is supple and without stridor Respiratory effort is increased. There are crackles and rales throughout his lungs. Tachycardic. S1-S2 Abdomen soft, nontender. Bilateral lower extremities with +2 edema, + compression stockings in place. Patient is lethargic and does not respond. He is wearing BiPAP. Skin is pale, cool to touch. Pallor is noted. There is some cyanosis in the nailbeds. Results & Data Vital Signs (Past 12 Hours) Vital Signs Pulse Pulse Resp BP BP Pulse Ox O2 Del Method 07/01/23 10:06 83 20 106/73 93 CPAP 07/01/23 09:49 93 H 22 97 07/01/23 09:18 91 H 24 116/69 91 Nasal Cannula 07/01/23 08:43 87 18 111/72 96 Nasal Cannula 07/01/23 07:00 87 24 92/64 L 97 07/01/23 07:00 85 07/01/23 06:00 90 22 104/69 97 07/01/23 04:18 76 22 94 07/01/23 03:30 93 H 28 H 94/69 L 97 07/01/23 02:41 89 24 99/65 L 96 CPAP O2 Flow Rate FiO2 07/01/23 10:06 07/01/23 09:49 30 07/01/23 09:18 4 07/01/23 08:43 3.5 07/01/23 07:00 07/01/23 07:00 07/01/23 06:00 07/01/23 04:18 6 07/01/23 03:30 07/01/23 02:41 Laboratory Results Labs and imaging reviewed, see HPI Diagnostic Findings Labs and imaging reviewed, see HPI A neck CTA was done which demonstrated no high-grade stenosis, occlusion or dissection within the carotid or vertebral arteries. Approximately fusiform aneurysmal dilatation of the proximal to mid left internal carotid artery measuring up to 14 mm in diameter. 30% focal stenosis at the takeoff of the right internal carotid artery. Chronic interstitial changes again noted within the lung apices. CT angiogram brain demonstrates bilateral internal carotid arteries are patent. Bilateral anterior and middle cerebral arteries are also patent. Vertebrobasilar system and posterior cerebral arteries are widely patent. There is no aneurysm, high-grade stenosis or proximal branch occlusion identified. Sinuses appear patent. Pulmonary fibrosis with median sternotomy and cardiomegaly noted in localizer promotion producer imaging. No acute intracranial abnormalities notated. Chest CTA. No distinct pulmonary embolus or aortic dissection. Interval worsening of pulmonary fibrosis with superimposed pneumonia, more so through the bilateral lower lobes not excluded. There is no pneumothorax. There is a question of fluid versus thickening of the wall of the gallbladder, cannot exclude acute cholecystitis. PG Care Time/CCT Total # of Minutes Spent Total Time Spent: 100 Total Time Spent with Patient: Total time spent is greater than 50% in coordination of care (as documented) at patient's floor/unit and/or counseling patient: I spent 100 minutes overall addressing this case: 20 min in medical data review/discussion with referring provider(s) and/or preparation for the visit 15 min in direct interaction with the patient/exam 40 min in Advance Care Planning/Goals of Care discussions as detailed above in note (must be >16min) 10 min in subsequent review and synthesis of assessment and plan 15 min communicating with other providers regarding the patient's case: Primary team, pulmonary medicine, spiritual care. Prolonged Care Time Prolonged Care Time: Yes Advanced Care Planning 69614 Advanced Care Planning 30 Min 60784 Advanced Care Planning Additional 30 [place] [address] IN/OBS CONSULT LVL 5,80M Patient Type New History Comprehensive Exam Comprehensive Medical Decision Making High Complexity Diagnoses Dyspnea and respiratory abnormalities R06.00; R06.89 Palliative care by specialist Z51.5 Advanced care planning/counseling discussion Z71.89 Anxiety F41.9 IPF (idiopathic pulmonary fibrosis) J84.112 Pulmonary hypertension I27.20 Coronary artery disease I25.10 Coronary Disease-Associated Artery/Lesion type: [place] artery Acute on chronic right-sided heart failure I50.813 Heart failure chronicity: acute on chronic CHF (congestive heart failure) I50.9 Heart failure chronicity: acute Heart failure type: unspecified Cachexia associated with pulmonary fibrosis J84.10; E88.A Additional Codes Advanced Care Planning - 85977 Advanced Care Planning 30 Min: 31475 Advanced Care Planning 30 Min ([id number]) Advanced Care Planning - 74086 Advanced Care Planning Additional 30 Min: 13452 Advanced Care Planning Additional 30 Min ([id number]) Prolonged Care Time - Prolonged Care Time: Yes ([id number])
[2023-07-01] MEDS: LORazepam 0.5 MG in SYRINGE 0.25 ML IV PRN (14:44)
--- NOTE | 2023-07-01 15:50 | Electrocardiogram Report ---
Test Reason : Blood Pressure : / mmHG Vent. Rate : 091 BPM Atrial Rate : 091 BPM P-R Int : 160 ms QRS Dur : 100 ms QT Int : 368 ms P-R-T Axes : 033 069 -50 degrees QTc Int : 452 ms Normal sinus rhythm Left atrial enlargement Nonspecific ST and T wave abnormality Abnormal ECG When compared with ECG of 30-JUN-2023 16:12, Questionable change in QRS axis QT has shortened Confirmed by René Malcolm ([id number]) on 07/01/2023 3:50:14 PM Referred By: Octavia Bah Confirmed By:René Malcolm
[2023-07-01] MEDS: AZITHROMYCIN 500 MG in DEXTROSE 5% 250 ML IV SCH (20:46)
[2023-07-01] MEDS: ENOXAPARIN INJ 40 MG/0.4 ML SYR SQ SCH (20:47)
[2023-07-02] MEDS: CEFEPIME 2,000 MG in SYRINGE 0 ML IV SCH ×2 (04:05→11:31)
[2023-07-02] MEDS: ASPIRIN 81 MG ECTAB PO SCH (08:23)
[2023-07-02] MEDS: GABAPENTIN 300 MG CAP PO SCH (08:23)
[2023-07-02] MEDS: IPRATROPIUM BROMIDE NASAL SPRAY 0.06% 15ML NAE SCH ×2 (08:23→20:07)
[2023-07-02] MEDS: PANTOprazole 40 MG TAB PO SCH (08:24)
[2023-07-02] MEDS: ADVANCED PROBIOTIC 1250 MG CAPSULE PO SCH (08:24)
[2023-07-02] MEDS: TAMSULOSIN HCL 0.4 MG CAP PO SCH (08:24)
[2023-07-02] MEDS: methylPREDNISolone 80 MG in SYRINGE 0 ML IV SCH ×3 (08:24→20:07)
--- NOTE | 2023-07-02 13:24 | Hospitalist Progress Note ---
Date of Service July 02, 2023 Assessment & Plan (1) Acute metabolic encephalopathy: Plan: Palliative care encounter The patient was seen by the palliative care service Has an extensive discussion with the family members by the palliative care provider Patient is made for comfort care only Transferred to third floor to continue comfort care Remains critical and without any acute distress Will continue current comfort care Has severe end-stage pulmonary fibrosis Noted to have questionable right facial droop and not being able to move the right sided extremities A stroke alert was called and he was evaluated by teleneurologist-no stroke identified CTA of the head and neck and CT of the head were unremarkable and no need to do an MRI on close less no further stroke symptoms are noticed Noted to have severe acidosis secondary to CO2 narcosis and likely cause for his acute metabolic and cephalopathy BiPAP administered and he will be moved to ICU The patternmaker metal bench did talk to the family members and the patient will be changed to DNR/DNI will be under hospice care on discharge (2) Dyspnea: (3) IPF (idiopathic pulmonary fibrosis): (4) CORIN on CPAP: (5) Coronary artery disease: (6) Hypertension: (7) Hyperlipidemia: (8) Type 2 diabetes mellitus: Plan: Detailed progress note is as below: Acute worsening shortness of breath Idiopathic pulmonary fibrosis Acute on Chronic respiratory failure with hypoxia CORIN on CPAP -Admit to telemetry -Bio fire is negative for acute viral source -Wears 3L NC at baseline, currently requiring 6L, O2 sats 95% -CXR for possible multifocal pneumonia versus fluid overload, with increased edema in legs and progressive worsening shortness of breath presume this may be fluid related, BNP 961 - CT angio pending -Troponin elevated at 242 trend every 6 hours, no chest pain, no acute changes on EKG noted, unlikely ACS at this time, possible demand ischemia - Lasix and nitro 1 in paste administered in the ER, continue Lasix 40 mg IV, place Childers catheter for strict I's/O's, daily weights -Patient has been following with [facility] pulmonology started clinical trial recently-on pirfenidone 801mg TID for antifibrotic therapy. Pt also on morphine for air hunger and anxiety-Per pulm visit on 06/14 patient was reluctant to take it at that time, he is agreeable currently -Will consult Pulm here for management-appreciate input and recommendation -Patient is not on any steroids, consider -Ca 9.41, check procalcitonin -Follow blood culture, only 1 set obtained, obtain a second now - start IV cefepime and vancomycin, check MRSA nasal swab and if negative can DC Vanco -Has seen palliative care with [facility] as well per pulmonary medicine report as he is not a lung transplant candidate due to underlying cardiac comorbidities.-On -Sleep study has been ordered as an outpatient to see if CPAP pressures can be decreased and can wean off CPAP due to ongoing sinus issues - IV morphine for air hunger -Clinically not any better and in the morning a stroke alert was called as above -Remains critical and the prognosis is poor CAD HTN HLD - prior CABG x4 at [facility] at the age of 36 in 1985. He had an incidental finding of severe asymptomatic left carotid disease and underwent a left carotid endarterectomy at [facility] in February of 1994. -Follows with Dr. Malave [facility] [place] as outpatient - consult cardiology - On Repatha, colesevelam, baby aspirin, coenzyme Q10, ezetimibe, rosuvastatin - Lasix 40 mg daily - additional lasix given as above - Check Echo with elevated troponin and fluid overload on exam - pt reports having echo completed in January at [facility] but those results are not available for review -Appreciate cardiology input and recommendation -Will hold off any Lasix for now -Echo of the heart showed EF of 50 to 55% without any left ventricular wall motion abnormalities, right ventricle is severely dilated, right atrium is moderate to severely dilated, there is mild tricuspid regurgitation and right ventricular systolic pressure is severely elevated at more than 60 mmHg DM II - Last A1C was 6.9 on 05/11/23 - Hold po metformin, ISS with accucheck achs GERD - Cont PPI Anxiety - Morphine oral solution also to be utilized for air hunger - Gabapentin DVT ppx: teds, scds Lines: GI/FEN: CODE: FULL Admission and Anticipated Discharge Date Admission Date: June 30, 2023 Subjective 07/01/2023 The patient was seen and examined in emergency room He was noted to have a right facial droop and incoherent speech at around 8:25 AM and a stroke alert was called He was reviewed by the teleneurologist He has been less responsive and not been communicating well due to extreme lethargy and encephalopathy 07/02/2023 The patient was seen and examined in medical floor He is minimally responsive to vocal commands and to painful stimuli Opening eyes and moving limbs barely with commands Remains otherwise comfortable Review of Systems Review of Systems: Unobtainable due to cognitive status Physical Exam Physical Exam: Lying in bed with shallow deep breathing Constitutional: + ill appearing and + thin Eyes: PERRL, conjunctivae normal, anicteric sclerae ENMT: external ear and nose normal, oropharynx normal Neck: trachea midline, no thyromegaly Respiratory: + respiratory distress (Mild to moderate distress at rest) Auscultation: + diminished lung sounds (Very diminished airflow bilaterally) and + crackles (Fine crackles bilaterally) Cardiovascular: Rate/Rhythm: regular rate and regular rhythm; not tachycardic Heart Sounds: normal S1, normal S2 and + murmur Extremities: + edema (2+ edema bilaterally) Gastrointestinal (Abdomen): Inspection/Auscultation: normal bowel sounds; abdomen not distended Percussion/Palpation: abdomen soft; abdomen nontender Musculoskeletal: No acute arthritis involving any of the joint Neurologic: Alert and responding minimally to vocal commands Lymphatic: no cervical or axillary lymphadenopathy Results & Data Results & Data Vital Signs (Past 12 Hours) Vital Signs O2 Del Method O2 Flow Rate 07/02/23 07:34 Nasal Cannula 6 (2) Dyspnea Dyspnea type: shortness of breath Qualified Code(s): R06.02 - Shortness of breath (5) Coronary artery disease Coronary Disease-Associated Artery/Lesion type: [place] artery (7) Hyperlipidemia Hyperlipidemia type: unspecified Qualified Code(s): E78.5 - Hyperlipidemia, unspecified (8) Type 2 diabetes mellitus Diabetes mellitus joint terminal attack controller insulin use: without skilled nursing use Diabetes mellitus complication status: without complication Qualified Code(s): E11.9 - Type 2 diabetes mellitus without complications
--- NOTE | 2023-07-02 14:50 | Pulmonology Progress Note ---
Date of Service July 02, 2023 Assessment & Plan (1) Acute respiratory failure with hypoxia and hypercapnia: (2) Pulmonary fibrosis: (3) Right heart failure: Heart failure chronicity: acute on chronic Qualified Code(s): I50.813 - Acute on chronic right heart failure (4) CHF (congestive heart failure): Heart failure chronicity: acute Heart failure type: unspecified Qualified Code(s): I50.9 - Heart failure, unspecified (5) End of life care: (6) Acute metabolic encephalopathy: Plan Patient remains critically ill and his prognosis overall is quite poor. This was discussed with the family. They are considering the possibility of transitioning the patient home with hospice on Tuesday. Patient is currently receiving as needed IV Lasix and broad-spectrum antibiotics for possible multifocal pneumonia. I suspect pneumonia is less likely playing a role given his negative procalcitonin and pulmonary edema noted on CT chest. His mentation has markedly improved compared to yesterday. I will obtain chest x-ray tomorrow to follow-up on the pulmonary edema. His proBNP is significantly elevated. His oxygenation and oxygen requirements have improved significantly. I had a lengthy discussion with the patient's family including multiple daughters and the patient's outside of the room. We discussed his overall condition and prognosis. They are understanding of the fact that he appears to be in the end stages of his idiopathic pulmonary fibrosis. Unfortunately he is not a lung transplant candidate given his advanced cardiac issues. He was evaluated at the [facility] and was deemed not to be a candidate. I will hold his gabapentin given his waxing waning mental status. Will continue judicious use of morphine and lorazepam as needed for air hunger and anxiety respectively. Urine Legionella antigen is pending. Respiratory viral panel was negative on admission. Continue IV Solu-Medrol 80 mg 3 times daily. The patient's family asked many insightful questions and I tried to answer them to the best my ability. They seem satisfied with the answers. I will continue to follow along with the primary team. Thank you for allowing me to participate in the care of Mr. Hartley. Admission and Anticipated Discharge Date Admission Date: June 30, 2023 Subjective Patient seen and examined. He is surrounded by his family including several daughters, son-in-law and his . Apparently, the patient was fairly obtunded this morning, but has been more alert and awake today. He is answering questions appropriately. He was able to eat some ice cream. He feels that his shortness of breath is improved. He is currently on 6 L of oxygen saturating in the mid 90s. He denies any fevers, chills or night sweats. Review of Systems Review of Systems: All systems reviewed & are unremarkable except as noted in HPI & below Physical Exam Physical Exam: Constitutional: Patient appears to be of their stated age. Cachectic. No apparent distress. Eyes: Pupils are equal round and reactive to light. Conjunctivae are normal. Anicteric sclera. Ears nose, mouth and throat: Mallampati class 1. Normal posterior oropharynx. Uvula is midline. Neck: Trachea is midline. Visual inspection is normal. Respiratory: Crackles bilaterally. Increased work of breathing. Cardiovascular: Regular rate and rhythm. No murmurs. No edema. Gastrointestinal: Normal bowel sounds, soft, nontender and nondistended. No hepatosplenomegaly noted. Musculoskeletal: No cyanosis. Patient is able to move all extremities. Strength is 5 out of 5 in the upper and lower extremities. Skin: No rashes, warm dry and intact. Neurologic: No obvious focal neurological deficits seen. Frequent myoclonic jerks. Psychiatric: Alert and oriented x3 with a euthymic affect. Results & Data Results & Data Vital Signs (Past 12 Hours) Vital Signs O2 Del Method O2 Flow Rate 07/02/23 07:34 Nasal Cannula 6 PG Care Time/CCT Total # of Minutes Spent Total Time Spent with Patient: Total time spent is greater than 50% in coordination of care (as documented) at patient's floor/unit and/or counseling patient: Coding Level of Care Code 00966 SUB INP/OBS CARE 3/50MIN Diagnoses Acute respiratory failure with hypoxia and hypercapnia J96.01; J96.02 Pulmonary fibrosis J84.10 Acute on chronic right-sided heart failure I50.813 Heart failure chronicity: acute on chronic CHF (congestive heart failure) I50.9 Heart failure chronicity: acute Heart failure type: unspecified End of life care Z51.5 Acute metabolic encephalopathy G93.41
[2023-07-02] MEDS: LORazepam 0.5 MG in SYRINGE 0.25 ML IV PRN (18:05)
[2023-07-02] MEDS: ENOXAPARIN INJ 40 MG/0.4 ML SYR SQ SCH (20:07)
[2023-07-02] MEDS: AZITHROMYCIN 500 MG in DEXTROSE 5% 250 ML IV SCH (20:07)
[2023-07-03] MEDS: LORazepam 0.5 MG in SYRINGE 0.25 ML IV PRN ×2 (00:04→04:46)
--- NOTE | 2023-07-03 07:28 | XRay Report ---
XR chest 1V portable HISTORY: 73 years-old Male pulmonary edema acute shortness of breath COMPARISON: 06/30/2023 TECHNIQUE: AP view of the chest FINDINGS: Cardiac silhouette is enlarged. Sternotomy wires with numerous mediastinal surgical clips again noted . No pneumothorax or large pleural effusion. Extensive coronary fibrosis redemonstrated with mixed in terstitial and alveolar opacities and bronchiectasis. Bones appear grossly intact. IMPRESSION: 1. Cardiomegaly with chronic pulmonary fibrosis. 2. Superimposed pulmonary edema with difficult to exclude, however no pleural effusion identified. ACT 112: Negative or not required by law. The above report was generated using voice recognition software. It may contain grammatical, syntax o r spelling errors. Electronically signed by: Juan Alberto Morris M.D. 07/03/2023 7:27 AM
[2023-07-03] MEDS: MoRPHine SULFATE 2 MG/ML CARP IV PRN ×2 (08:27→23:47)
[2023-07-03] MEDS ORDERED: FUROSEMIDE INJ 20 MG/2 ML VIAL IV ONE (08:45)
[2023-07-03] MEDS: LORazepam 1 MG in SYRINGE 0.5 ML IV PRN (09:20)
[2023-07-03] MEDS: IPRATROPIUM BROMIDE NASAL SPRAY 0.06% 15ML NAE SCH ×2 (09:20→20:49)
[2023-07-03] MEDS: methylPREDNISolone 80 MG in SYRINGE 0 ML IV SCH ×3 (09:20→20:49)
[2023-07-03] MEDS: ADVANCED PROBIOTIC 1250 MG CAPSULE PO SCH (09:21)
[2023-07-03 09:50] LABS: BUN Creatinine Ratio 37.5 (10-20); Calcium 9.1 mg/dl (8.6-10.3); Creatinine Clr Calc Pharmacy 77.4 ml/min; Est GFR (Non-African American) 93.2 ml/min
[2023-07-03] MEDS ORDERED: acetaZOLAMIDE 250 MG in SYRINGE 0 ML IV ONE (11:15)
--- NOTE | 2023-07-03 11:43 | Hospitalist Progress Note ---
Date of Service July 03, 2023 Assessment & Plan (1) Acute metabolic encephalopathy: Plan: Palliative care encounter The patient was seen by the palliative care service Has an extensive discussion with the family members by the palliative care provider Patient is made for comfort care only Transferred to third floor to continue comfort care Remains critical and without any acute distress He was more alert and awake this morning and wanted to have real food Noted to have choking on scrambled eggs He received a small dose of intravenous morphine for increasing shortness of breath and anxiety and has been feeling saturating on 6 L Has been sleeping and not willing to converse Remains comfortable Has severe end-stage pulmonary fibrosis Noted to have questionable right facial droop and not being able to move the right sided extremities A stroke alert was called and he was evaluated by teleneurologist-no stroke identified CTA of the head and neck and CT of the head were unremarkable and no need to do an MRI on close less no further stroke symptoms are noticed Noted to have severe acidosis secondary to CO2 narcosis and likely cause for his acute metabolic and cephalopathy BiPAP administered and he will be moved to ICU The risk mgr did talk to the family members and the patient will be changed to DNR/DNI will be under hospice care on discharge (2) Dyspnea: (3) IPF (idiopathic pulmonary fibrosis): (4) CORIN on CPAP: (5) Coronary artery disease: (6) Hypertension: (7) Hyperlipidemia: (8) Type 2 diabetes mellitus: Plan: Detailed progress note is as below: Acute worsening shortness of breath Idiopathic pulmonary fibrosis Acute on Chronic respiratory failure with hypoxia CORIN on CPAP -Admit to telemetry -Bio fire is negative for acute viral source -Wears 3L NC at baseline, currently requiring 6L, O2 sats 95% -CXR for possible multifocal pneumonia versus fluid overload, with increased edema in legs and progressive worsening shortness of breath presume this may be fluid related, BNP 961 - CT angio pending -Troponin elevated at 242 trend every 6 hours, no chest pain, no acute changes on EKG noted, unlikely ACS at this time, possible demand ischemia - Lasix and nitro 1 in paste administered in the ER, continue Lasix 40 mg IV, place Childers catheter for strict I's/O's, daily weights -Patient has been following with [facility] pulmonology started clinical trial recently-on pirfenidone 801mg TID for antifibrotic therapy. Pt also on morphine for air hunger and anxiety-Per pulm visit on 06/14 patient was reluctant to take it at that time, he is agreeable currently -Will consult Pulm here for management-appreciate input and recommendation -Patient is not on any steroids, consider -Ca 9.41, check procalcitonin -Follow blood culture, only 1 set obtained, obtain a second now - start IV cefepime and vancomycin, check MRSA nasal swab and if negative can DC Vanco -Has seen palliative care with [facility] as well per pulmonary medicine report as he is not a lung transplant candidate due to underlying cardiac comorbidities.-On -Sleep study has been ordered as an outpatient to see if CPAP pressures can be decreased and can wean off CPAP due to ongoing sinus issues - IV morphine for air hunger -Clinically not any better and in the morning a stroke alert was called as above -Remains critical and the prognosis is poor CAD HTN HLD - prior CABG x4 at [facility] at the age of 36 in 1985. He had an incidental finding of severe asymptomatic left carotid disease and underwent a left carotid endarterectomy at [facility] in February of 1994. -[place] [facility] - consult cardiology - On Repatha, colesevelam, baby aspirin, coenzyme Q10, ezetimibe, rosuvastatin - Lasix 40 mg daily - additional lasix given as above - Check Echo with elevated troponin and fluid overload on exam - pt reports having echo completed in January at [facility] but those results are not available for review -Appreciate cardiology input and recommendation -Will hold off any Lasix for now -Echo of the heart showed EF of 50 to 55% without any left ventricular wall motion abnormalities, right ventricle is severely dilated, right atrium is moderate to severely dilated, there is mild tricuspid regurgitation and right ventricular systolic pressure is severely elevated at more than 60 mmHg DM II - Last A1C was 6.9 on 05/11/23 - Hold po metformin, ISS with accucheck achs GERD - Cont PPI Anxiety - Morphine oral solution also to be utilized for air hunger - Gabapentin DVT ppx: teds, scds Lines: GI/FEN: CODE: FULL Admission and Anticipated Discharge Date Admission Date: June 30, 2023 Subjective 07/01/2023 The patient was seen and examined in emergency room He was noted to have a right facial droop and incoherent speech at around 8:25 AM and a stroke alert was called He was reviewed by the teleneurologist He has been less responsive and not been communicating well due to extreme lethargy and encephalopathy 07/02/2023 The patient was seen and examined in medical floor He is minimally responsive to vocal commands and to painful stimuli Opening eyes and moving limbs barely with commands Remains otherwise comfortable 07/03/2023 The patient was seen and examined in medical floor He was more alert and awake this morning and wanted to have real food Noted to have choking on scrambled eggs He received a small dose of intravenous morphine for increasing shortness of breath and anxiety and has been feeling saturating on 6 L Has been sleeping and not willing to converse Review of Systems Review of Systems: Unobtainable due to cognitive status Physical Exam Physical Exam: Lying in bed with shallow deep breathing Constitutional: + ill appearing and + thin Eyes: PERRL, conjunctivae normal, anicteric sclerae ENMT: external ear and nose normal, oropharynx normal Neck: trachea midline, no thyromegaly Respiratory: + respiratory distress (Mild to moderate distress at rest) Auscultation: + diminished lung sounds (Very diminished airflow bilaterally) and + crackles (Fine crackles bilaterally) Cardiovascular: Rate/Rhythm: regular rate and regular rhythm; not tachycardic Heart Sounds: normal S1, normal S2 and + murmur Extremities: + edema (2+ edema bilaterally) Gastrointestinal (Abdomen): Inspection/Auscultation: normal bowel sounds; abdomen not distended Percussion/Palpation: abdomen soft; abdomen nontender Lymphatic: no cervical or axillary lymphadenopathy Results & Data Results & Data Laboratory Results [facility] 07/03/23 08:56 Sodium 138 Potassium 5.0 Chloride 97 L Carbon Dioxide 41 H* BUN 27 H Creatinine 0.72 Glucose 172 H Calcium 9.1 (2) Dyspnea Dyspnea type: shortness of breath Qualified Code(s): R06.02 - Shortness of breath (5) Coronary artery disease Coronary Disease-Associated Artery/Lesion type: [place] artery (7) Hyperlipidemia Hyperlipidemia type: unspecified Qualified Code(s): E78.5 - Hyperlipidemia, unspecified (8) Type 2 diabetes mellitus Diabetes mellitus detention insulin use: without detention use Diabetes mellitus complication status: without complication Qualified Code(s): E11.9 - Type 2 diabetes mellitus without complications
--- NOTE | 2023-07-03 12:38 | Pulmonology Progress Note ---
Date of Service July 03, 2023 Assessment & Plan (1) Acute respiratory failure with hypoxia and hypercapnia: (2) Pulmonary fibrosis: (3) Right heart failure: Heart failure chronicity: acute on chronic Qualified Code(s): I50 .813 - Acute on chronic right heart failure (4) CHF (congestive heart failure): Heart failure chronicity: acute Heart failure type: unspecified Qualified Code(s): I50.9 - Heart failure, unspecified (5) End of life care: (6) Acute metabolic encephalopathy: Plan Patient remains critically ill and his prognosis overall is quite poor. The patient had a choking episode this morning, but his saturations recovered and he remains on low-flow oxygen. He became quite anxious and short of breath this morning and received Ativan and morphine. He has remained obtunded since receiving these medications. I had another lengthy discussion with the patient's family outside the room including his and several daughters. I indicated to the family that Mr. Hartley appears to be actively dying. The family asked many insightful questions and understand that he is in the active dying phase of his disease process. They would like to continue with as needed morphine and Ativan. They are considering the possibility of an additional morphine infusion. They are aware that patient may potentially today. I have given an additional dose of 20 mg IV Lasix today with good diuresis. I also gave a dose of acetazolamide given his severely elevated bicarbonate level. His chest x-ray reveals persistent reticulonodular/fibrotic changes, but the pulmonary edema appears to be less pronounced than on admission. We are avoiding BiPAP and ABG at this point as the family would like to avoid interventions that would potentially cause distress to the patient. They understand that this lung process is irreversible and that our singular goal at this point is providing comfort to the patient towards the end of his life. Pulmonary team will continue to follow along with you. Thank you for allowing me to participate in the care of Mr. Hartley. Admission and Anticipated Discharge Date Admission Date: June 30, 2023 Subjective Patient had an episode earlier today after choking on scrambled eggs. He became dyspneic and hypoxic after this episode. His oxygenation recovered, but he was very anxious and short of breath. He received a small dose of morphine and Ativan and has essentially remained obtunded since the dose he received earlier this morning. Multiple family members at bedside. Unable to obtain review of systems from patient. Review of Systems Review of Systems: Unobtainable due to reduced consciousness Physical Exam Physical Exam: Constitutional: Patient appears to be of their stated age. Cachectic. Obtunded. Tachypneic. Eyes: Pupils are equal round and reactive to light. Conjunctivae are normal. Anicteric sclera. Ears nose, mouth and throat: Mallampati class 1. Normal posterior oropharynx. Uvula is midline. Neck: Trachea is midline. Visual inspection is normal. Respiratory: Crackles bilaterally. Increased work of breathing. Cardiovascular: Regular rate and rhythm. No murmurs. No edema. Gastrointestinal: Normal bowel sounds, soft, nontender and nondistended. No hepatosplenomegaly noted. Musculoskeletal: No cyanosis. Patient is able to move all extremities. Strength is 5 out of 5 in the upper and lower extremities. Skin: No rashes, warm dry and intact. Neurologic: Essentially obtunded. Psychiatric: Obtunded. PG Care Time/CCT Total # of Minutes Spent Total Time Spent with Patient: Total time spent is greater than 50% in coordination of care (as documented) at patient's floor/unit and/or counseling patient: Coding Level of Care Code 27171 SUB INP/OBS CARE 3/50MIN Diagnoses Acute respiratory failure with hypoxia and hypercapnia J96.01; J96.02 Pulmonary fibrosis J84.10 Acute on chronic right-sided heart failure I50.813 Heart failure chronicity: acute on chronic CHF (congestive heart failure) I50.9 Heart failure chronicity: acute Heart failure type: unspecified End of life care Z51.5 Acute metabolic encephalopathy G93.41
[2023-07-03] MEDS: AZITHROMYCIN 500 MG in DEXTROSE 5% 250 ML IV SCH (20:49)
[2023-07-03] MEDS: ENOXAPARIN INJ 40 MG/0.4 ML SYR SQ SCH (20:50)
[2023-07-04] MEDS: MoRPHine SULFATE 2 MG/ML CARP IV PRN ×8 (05:48→22:29)
[2023-07-04] MEDS: ADVANCED PROBIOTIC 1250 MG CAPSULE PO SCH (07:28)
[2023-07-04] MEDS: IPRATROPIUM BROMIDE NASAL SPRAY 0.06% 15ML NAE SCH ×2 (07:28→22:40)
[2023-07-04] MEDS: methylPREDNISolone 80 MG in SYRINGE 0 ML IV SCH ×3 (07:43→19:48)
--- NOTE | 2023-07-04 08:14 | Pulmonology Progress Note ---
Date of Service July 04, 2023 Assessment & Plan (1) Acute respiratory failure with hypoxia and hypercapnia: (2) Pulmonary fibrosis: (3) Right heart failure: Heart failure chronicity: acute on chronic Qualified Code(s): I 50.813 - Acute on chronic right heart failure (4) CHF (congestive heart failure): Heart failure chronicity: acute Heart failure type: unspecified Qualified Code(s): I50.9 - Heart failure, unspecified (5) End of life care: (6) Acute metabolic encephalopathy: Plan Impression: 73-year-old male with end-stage pulmonary fibrosis admitted with some hypoxemic respiratory failure. He is currently being treated with medications to treat underlying dyspnea. Recommendations: 1. End-stage pulmonary fibrosis: Patient not candidate for any additional therapies. Continue to treat any potential reversible causes including diuretics and antibiotics as felt to be appropriate. Continue medications for management of dyspnea. Defer to palliative care additional adjuncts. Unclear if home or inpatient hospice might be appropriate. Will continue to follow peripherally. Feel free to contact us with questions or concerns Admission and Anticipated Discharge Date Admission Date: June 30, 2023 Subjective Patient is sedated and somnolent. Review of Systems 2 Review of Systems: Unobtainable due to reduced consciousness Physical Exam 2 Physical Exam: Patient sedated and unresponsive to verbal or tactile stimulus. His breathing is somewhat sonorous. Respiratory: no respiratory distress and no labored breathing Auscultation: + crackles Cardiovascular: RRR, no murmur, no edema Results & Data Results & Data Vital Signs (Past 12 Hours) Vital Signs O2 Del Method O2 Flow Rate 07/03/23 23:15 Nasal Cannula 3 Laboratory Results 07/01/23 08:44 07/03/23 08:56 PG Care Time/CCT Total # of Minutes Spent Total Time Spent with Patient: Total time spent is greater than 50% in coordination of care (as documented) at patient's floor/unit and/or counseling patient: Coding Level of Care Code 23239 SUB INP/OBS CARE 2/35MIN Diagnoses Acute respiratory failure with hypoxia and hypercapnia J96.01; J96.02 Pulmonary fibrosis J84.10 Acute on chronic right-sided heart failure I50.813 Heart failure chronicity: acute on chronic CHF (congestive heart failure) I50.9 Heart failure chronicity: acute Heart failure type: unspecified End of life care Z51.5 Acute metabolic encephalopathy G93.41
--- NOTE | 2023-07-04 17:49 | Palliative Care Progress Note ---
Date of Service July 04, 2023 Assessment & Plan (1) Dyspnea and respiratory abnormalities: Plan: Provided rationale and overview of utilization of opioids to leave terminal dyspnea and air hunger. Reviewed the medications are ordered on an as-needed basis. He is requiring frequent administration of as needed medications and transitioning to an infusion would be more warranted since it would indicate that he needs a steadier rate of control. For now he is doing all right with the as needed dosing. (2) IPF (idiopathic pulmonary fibrosis): Plan: Patient's family and I discussed how the literature demonstrates to us that patients with IPF represent a group of individuals with a chronic respiratory disease who are without disease-reversing treatment options and, absent lung transplantation, inevitably face progressive decline and . We discussed that IPF is a progressive fibro-proliferative lung disease that affects approximately 128,000 individuals in the [place] annually. (Link Rosales, Susan H, Corby CONN, et al. ATS/ERS/JRS/ALAT Committee on Idiopathic Pulmonary Fibrosis. An official ATS/ERS/JRS/ALAT statement: idiopathic pulmonary fibrosis: evidence- based guidelines for diagnosis and management. Am J Respir Crit Care Med. 2011;183(6):388175.) The prognosis of IPF is poor, with most patients succumbing to their illness at a rate comparable to aggressive cancers.(Vivian C, Bonifacio M, Jose David N, Link Rosales. Idiopathic pulmonary fibrosis: a disease with similarities and links to cancer biology. Eur Respir J. 2010;35:409089.) Median survival from diagnosis is 3.8 years; however, patients may succumb to a rapid within 6 months.(Link Rosales, Asuncion SY, Lonnie WS, et al. Idiopathic pulmonary fibrosis in [place] Medicare beneficiaries aged 65 years and older: incidence, prevalence, and survival, [id number]. Lancet Respir Med. 2014;2(7):074001 and Gordon SANCHEZ, Barbie N, Sherley F, et al. Peripheral blood proteins predict mortality in idiopathic pulmonary fibrosis. Am J Respir Crit Care Med. 2012;185(1):5019.) Although transplantation is an effective surgical therapy,less than 20% of patients ever receive a lung transplant. The remaining 80% have few treatment options. As fibrosis advances and lung function deteriorates, patients experience a progressive increase in shortness of breath, cough and fatigue. These symptoms are distressing to patients and family caregivers and present a challenge in maintaining quality of life as the disease relentlessly progresses. Despite the fatal prognosis, patients and caregivers often fail to understand the poor prognosis. (Sabas KUO, Gareth E, Jose M, et al. Impact of a disease-management program on symptom burden and health-related quality of life in patients with idiopathic pulmonary fibrosis and their care partners. Heart Lung J Acute Crit Care. 2010;39(4):190119 and Nataliia Ledezma, Airam Mcgrath, Collins CONN. Interstitial lung disease original article: a qualitative study of informal caregivers perspectives on the effects of idiopathic pulmonary fibrosis. BMJ Open Resp Res. 2014:1.) (3) Advanced care planning/counseling discussion: Plan: A 90-minute, detailed and extensive advance care planning meeting was held at the bedside with patient's , daughters x 3, son-in-law x 1. We reviewed symptom management, the progressive nature of terminal lung disease, and the overall changes that we are seeing that indicate patient is in a declining end-of-life process. We spoke at length about the nature of pulmonary fibrosis and its progression as outlined above. At family's request we also discussed changes patient's move through in an end-of-life process: Discussed changes pt may move through in the dying process including but not limited to sleeping more, disorientation when awake, restlessness, diminished senses/inability to respond to stimulus although ability to be aware of them remains intact longer, changes in body temperatures, skin changes/mottling/cyanosis, respiratory pattern changes, oral secretions. Family verbalized understanding. The goal is to assure a peaceful . TEACHING THE FAMILY WHAT TO EXPECT WHEN THE PATIENT IS DYING (from Shimon Verma MD, PhD) Introduction: Family members look to the medical team to help them know what to expect when a loved one is dying. No matter the underlying causes, there is a common final pathway that most patients travel. 1. Social Withdrawal is normal for the dying patient as the person becomes less concerned about his or her surroundings. Separation begins first from the world no more interest in newspaper or television, then from people no more neighbors visiting, and finally from the children, grandchildren and perhaps even those persons most loved. With this withdrawal comes less of a need to communicate with others, even with close family. 2. Food: The patient will have a decreased need for food and drink as the body is preparing to . This is one of the hardest things for some family to accept. There is a gradual decrease in interest in eating and appetiteeven for their favorite foods. Interest may come and go. The patient is not starving to deaththis reflects the underlying disease. Liquids are preferred to solidsfollow the patients lead and do not force feed. 3. Sleep: The patient will spend more and more time sleeping; it may be difficult for them to keep their eyes open. This is a result of a change in the bodys metabolism as a result of the disease. Tell family to spend more time with the patient during those times when he/she is most alert; this might be the middle of the night. 4. Disorientation: The patient may become confused about time, place and the identity of people around him/her. He/she may see people who are not there, such as family members who have already . Sometimes patients describe welcoming or beckoning. While the patient may not be distressed, it is frequently distressing to family or health director of healthcare systems. Gently orient the patient if he or she asks. There is no need to correct the patient if he or she is not distressed. 5. Restlessness: The patient may become restless and pull at the bed linens. These symptoms are also a change in the bodys metabolism. Talk calmly and assuredly with the patient so as not to startle or frighten them. If the patient is a danger to himself or others, you may prescribe sedating neuroleptics (e.g.chlorpromazine), or neuroleptics (e.g. haloperidol) in combination with benzodiazepines (e.g. lorazepam), to help the patient rest. 6. Decreased Senses: Clarity of hearing and vision may decrease. Soft lights in the room may prevent visual misinterpretations. Never assume that the patient cannot hear you, as hearing is the last of the five senses to be lost. 7. Incontinence of urine and bowel movements is often not a problem until is very near. Invite family to participate in direct care; the nurse can help place absorbent pads under the patient for more comfort and cleanliness, or a urinary catheter may be used. The amount of urine will decrease and the urine become darker as becomes near. 8. Physical Changes as approaches: a. The blood pressure decreases; the pulse may increase or decrease. c. The body temperature can fluctuate; fever is common. d. There is increased perspiration often with clamminess. e. The skin color changes: flushed with fever, bluish with cold. A pale yellowish pallor (not to be confused with jaundice) often accompanies approaching . f. Breathing changes also occur. Respirations may increase, decrease or become irregular; periods of no breathing (apnea) are common. g. Congestion will present as a rattling sound in the lungs and/or upper throat. This occurs because the patient is too weak to clear the throat or cough. The congestion can be affected by positioning, may be very loud, and sometimes just comes and goes. Anticholinergic medications (like scopolamine or glycopyrrolate) can help (see Fast Fact #109). Elevating the head of bed and swabbing the mouth with oral swabs give comfort and give the family something to do. h. The arms and legs may become cool to the touch. The hands and feet become purplish. The knees, ankles and elbows are blotchy. These symptoms are a result of decreased circulation. i. The patient will enter a coma before and not respond to verbal or tactile stimuli. HOW TO KNOW THAT HAS OCCURRED No breathing and heartbeat. Loss of control of bowel or bladder. No response to verbal commands or gentle shaking. Eyelids slightly open; eyes fixed on a certain spot. Jaw relaxed and mouth slightly open. Acknowledgement: This Fact Fact was adapted with permission from a family information handout (The Blue Sheet) given to families of [facility]. References 1. Julito Hummel I. The terminal phase. In: Juan Sr, Sonja QUIROZ, Herbert Prieto, eds. Stewart Textbook of Palliative Medicine. 2nd ed. Stewart, Matthias: [employer]; 1998. 2. Judith Faustin, Lizandro C. Care of the dying patient: the last hours or days of life. BMJ. 2003; 326(2092):30-4. 3. Cornelius FD, anai Karimi CF, Abdoulaye LL. Competency in End of Life Care: the last hours of living. J Palliat Med. 2003; 6(4):605-613. (4) Palliative care by specialist: Plan: Met with pt/family. Provided overview of Palliative Medicine, a subspecialty that provides specialized medical care for people living with a serious illness by offering a focus on quality of life. Palliative Medicine is often conflated with hospice: I advised patient/family that Palliative and hospice can be partners but we are not the same. It is important to understand the difference so that we may be informed, and not afraid. Palliative Medicine works to improve QOL through reduction of symptom burden/more control over their illness, for both the patient and family. Palliative medicine clinicians are board certified, specially-trained and another member of the patient's medical care team. We often provide an extra layer of support because our care is based on the needs of the patient, not the prognosis; as such, it's appropriate at any age/advancing stage of a serious illness and can be provided along with curative treatment. Palliative Medicine clinicians are also trained in advanced communication methodologies, to facilitate complex discussions about advanced illness planning, which are needed to help assure that the treatment choices match the patient's goals, aka delivering Goal Concordant care. Finally, we discussed that hospice is a visiting nurse service that focuses on care delivered at the very end of life for patients with terminal illness, with life expectancy less than 6 month. (5) Pulmonary hypertension: (6) Acute respiratory failure with hypoxia and hypercapnia: (7) ASCVD (arteriosclerotic cardiovascular disease): Plan * Patient remains on a comfort plan of care. He has been steadily declining. Suspect that his remarkable day of alertness and interaction on Tuesday was likely an end-of-life rally.When a person facing the end of life rallies, they seem to become "more stable" - may want to talk or even begin taking PO; this phenomenon is usually seen as a sudden burst of energy before . This period of perking up can be accompanied by such a notable change in mental clarity that is often referred to as terminal lucidity. This change in cognition and behavior goes against everything families learn about the physical signs that the end of life is near. It is important to note that evidence-based data is elusive, if nonexistent. Theories support that it may be a search for a final, strong connection. Also, as organs shut down, they can release a steroid like compound that briefly rouses the body - in the specific case of brain tumors, swelling occurs in the confined space of the skull. The edema shrinks as EOL care patients are weaned off food and drink, waking up the brain a bit. Families and caregivers may grasp at what seems to be a turnaround in our loved ones health and sigh with relief. However, the EOL Rally is a hallmark pre- sign. It is not uncommon for patients to show improvement before : they may want to talk, others may become restless or act as if they need to start preparing for a trip. Others will simply become more relaxed yet remain tuned in to what is going on around them. Still others will show signs of physical stability when, seconds before, they seemed on the verge of letting go. A rally can last for a few moments or even days. Short or long, these temporary improvements can have a profound effect on loved ones who are keeping parekh. Like a moment of clarity for someone who has dementia, a rally is one last opportunity to connect with a loved one. Each persons experience is unique and impossible to predict with total accuracy. Life is full of questions, and some of them simply are not meant to be answered. Read more: https://www.Searchspace.com//well/ksn-uzsxlmj-xf-mgq-rg-ihai-rallies.htm l * Continue comfort care. We will stop all nonessential and on comfort oriented interventions. Currently he is wearing both nasal cannula and facemask but the skin on the bridge of his nose is starting to breakdown. We will remove the facemask it is not necessary to assure that he is comfortable. Opioids and antianxiety medicines are ordered on an as-needed basis to assure that his symptoms remain well-managed. * Extensive discussion with family as outlined above. All questions were answered to their apparent satisfaction. Extensive psychosocial support and reassurance was provided. * Patient is on a steady decline. I have stopped nonessential and on comfort oriented medications. I discontinued facemask oxygen and will leave nasal cannula in place for now. Dyspnea and respiratory distress should be managed with the opioid and benzodiazepines as ordered to assure comfort and good symptom management through this end-of-life process. Family is very much aware that he is in the dying process. I do not believe he will survive this admission. We did briefly discussed the option of home with hospice however he will not have adequate caregiver support to return home and the complexity of his needs at this junction particularly with a high potential for respiratory crisis due to terminal dyspnea would make the home-based hospice option less desirable without a rapid method of providing relief from the symptoms such as IV medications. Family in agreement. We did review the potential that he may stay stable but very sick and slightly slower than perhaps a we are anticipating. If he is exactly the same and chronically stable in the next few days, then discussions can be held with regards to disposition planning to a skilled facility. Patient and his reside at the [facility] and therefore the only skilled facility that they would be interested in going to is the atrium at the [facility]. * Additionally spiritual care support was offered and the on-call bell attendant was notified at family's request. They would like a prayer at the bedside for patient. * had several questions about how to convey these updates to other family members. She notes that when she and patient discussed what his end-of-life preferences would be, he was very clear that he would only want to have his daughters there with him but he would not want to have additional or extended family members present nor did he want his friends present. He was always very clear with his family he did not want people to see him that way or to watch him . He wanted to be surrounded by his family that he left the most, his and his children. I gave her some talking and asked to use to convey these request to his family. Thank you for allowing us to participate in the ongoing care of this patient. Please don't hesitate to call or page with any additional concerns. Dr. Gely Jones DNP Director, Palliative Care Admission and Anticipated Discharge Date Admission Date: June 30, 2023 Subjective Met with family at pt bedside: , dtr Lisa/surgeon [facility], dtr/son in law--Weatherization Administrator for [employer] in [place], and youngest dtr who resides at home with pt and . They report "He had a great day Tuesday - he was wide awake, alert and really interactive with us. He ate a bunch of ice cream and he was so happy." Adryan is lying in bed at the time of my visit. He is not responsive. There is increased respiratory effort with use of accessory muscles and abdominal breathing noted. He has required a few doses of the as needed IV morphine today. He has also needed a dose of Ativan for some agitation. His family has many questions which are discussed below. Review of Systems Review of Systems: Unobtainable due to reduced consciousness Physical Exam Physical Exam: Frail, cachectic elderly male, in respiratory distress. Bitemporal wasting. There is use of accessory muscles noted. There is some healing of the chest noted. Abdominal breathing is noted. There is JVD noted. Overall breath sounds are diminished with crackles. He is tachycardic. There is a pronounced S2. Abdomen is scaphoid. There is no grimacing noted with palpation. There is generalized weakness. His skin is pale and cool to touch. He is not able to follow commands. He is lethargic and not responsive. There is some grimacing and furrowing of the brow noted especially with increased respiratory distress. Results & Data Vital Signs (Past 12 Hours) Vital Signs O2 Del Method O2 Flow Rate 07/04/23 08:19 Nasal Cannula 3 PG Care Time/CCT Total # of Minutes Spent Total Time Spent: 155 Total Time Spent with Patient: Total time spent is greater than 50% in coordination of care (as documented) at patient's floor/unit and/or counseling patient: I spent 155 minutes overall addressing this very complex case: 15 min in medical data review/discussion with referring provider(s) and/or preparation for the visit 15 min in direct interaction with the patient/exam 90 min in Advance Care Planning/Goals of Care discussions as detailed above in note (must be >16min) 15 min in subsequent review and synthesis of assessment and plan 20 min communicating with other providers regarding the patient's case: nursing, primary team Prolonged Care Time Prolonged Care Time: Yes Advanced Care Planning 15982 Advanced Care Planning 30 Min 16138 Advanced Care Planning Additional 30 Min Coding Patient Type Established Medical Decision Making High Complexity Diagnoses Dyspnea and respiratory abnormalities R06.00; R06.89 IPF (idiopathic pulmonary fibrosis) J84.112 Advanced care planning/counseling discussion Z71.89 Palliative care by specialist Z51.5 Pulmonary hypertension I27.20 Acute respiratory failure with hypoxia and hypercapnia J96.01; J96.02 ASCVD (arteriosclerotic cardiovascular disease) I25.10 Additional Codes Prolonged Care Time - Prolonged Care Time: Yes ([id number]) Advanced Care Planning - 07481 Advanced Care Planning 30 Min: 32826 Advanced Care Planning 30 Min ([id number]) Advanced Care Planning - 79768 Advanced Care Planning Additional 30 Min: 18042 Advanced Care Planning Additional 30 Min ([id number])
[2023-07-04] MEDS: LORazepam 1 MG in SYRINGE 0.5 ML IV PRN (18:54)
--- NOTE | 2023-07-04 18:57 | Hospitalist Progress Note ---
Date of Service July 04, 2023 Assessment & Plan (1) Acute metabolic encephalopathy: Plan: Palliative care encounter The patient was seen by the palliative care service Has an extensive discussion with the family members by the palliative care provider Patient is made for comfort care only Transferred to third floor to continue comfort care Remains critical and without any acute distress He was more alert and awake this morning and wanted to have real food Noted to have choking on scrambled eggs He received a small dose of intravenous morphine for increasing shortness of breath and anxiety and has been feeling saturating on 6 L Has been sleeping and not willing to converse Remains comfortable Discussed with the family members and will asked Dr. Connolly to discuss with them as well Continue current care Has severe end-stage pulmonary fibrosis Noted to have questionable right facial droop and not being able to move the right sided extremities A stroke alert was called and he was evaluated by teleneurologist-no stroke identified CTA of the head and neck and CT of the head were unremarkable and no need to do an MRI on close less no further stroke symptoms are noticed Noted to have severe acidosis secondary to CO2 narcosis and likely cause for his acute metabolic and cephalopathy BiPAP administered and he will be moved to ICU The managing attorney did talk to the family members and the patient will be changed to DNR/DNI will be under hospice care on discharge (2) Dyspnea: (3) IPF (idiopathic pulmonary fibrosis): (4) CORIN on CPAP: (5) Coronary artery disease: (6) Hypertension: (7) Hyperlipidemia: (8) Type 2 diabetes mellitus: Plan: Detailed progress note is as below: Acute worsening shortness of breath Idiopathic pulmonary fibrosis Acute on Chronic respiratory failure with hypoxia CORIN on CPAP -Admit to telemetry -Bio fire is negative for acute viral source -Wears 3L NC at baseline, currently requiring 6L, O2 sats 95% -CXR for possible multifocal pneumonia versus fluid overload, with increased edema in legs and progressive worsening shortness of breath presume this may be fluid related, BNP 961 - CT angio pending -Troponin elevated at 242 trend every 6 hours, no chest pain, no acute changes on EKG noted, unlikely ACS at this time, possible demand ischemia - Lasix and nitro 1 in paste administered in the ER, continue Lasix 40 mg IV, place Childers catheter for strict I's/O's, daily weights -Patient has been following with [facility] pulmonology started clinical trial recently-on pirfenidone 801mg TID for antifibrotic therapy. Pt also on morphine for air hunger and anxiety-Per pulm visit on 06/14 patient was reluctant to take it at that time, he is agreeable currently -Will consult Pulm here for management-appreciate input and recommendation -Patient is not on any steroids, consider -Ca 9.41, check procalcitonin -Follow blood culture, only 1 set obtained, obtain a second now - start IV cefepime and vancomycin, check MRSA nasal swab and if negative can DC Vanco -Has seen palliative care with [facility] as well per pulmonary medicine report as he is not a lung transplant candidate due to underlying cardiac comorbidities.-On -Sleep study has been ordered as an outpatient to see if CPAP pressures can be decreased and can wean off CPAP due to ongoing sinus issues - IV morphine for air hunger -Clinically not any better and in the morning a stroke alert was called as above -Remains critical and the prognosis is poor CAD HTN HLD - prior CABG x4 at [facility] at the age of 36 in 1985. He had an incidental finding of severe asymptomatic left carotid disease and underwent a left carotid endarterectomy at [facility] in February of 1994. -Follows with Dr. Malave [facility] as outpatient - consult cardiology - On Repatha, colesevelam, baby aspirin, coenzyme Q10, ezetimibe, rosuvastatin - Lasix 40 mg daily - additional lasix given as above - Check Echo with elevated troponin and fluid overload on exam - pt reports having echo completed in January at [facility] but those results are not available for review -Appreciate cardiology input and recommendation -Will hold off any Lasix for now -Echo of the heart showed EF of 50 to 55% without any left ventricular wall motion abnormalities, right ventricle is severely dilated, right atrium is moderate to severely dilated, there is mild tricuspid regurgitation and right ventricular systolic pressure is severely elevated at more than 60 mmHg DM II - Last A1C was 6.9 on 05/11/23 - Hold po metformin, ISS with accucheck achs GERD - Cont PPI Anxiety - Morphine oral solution also to be utilized for air hunger - Gabapentin DVT ppx: teds, scds Lines: GI/FEN: CODE: FULL Admission and Anticipated Discharge Date Admission Date: June 30, 2023 Subjective 07/01/2023 The patient was seen and examined in emergency room He was noted to have a right facial droop and incoherent speech at around 8:25 AM and a stroke alert was called He was reviewed by the teleneurologist He has been less responsive and not been communicating well due to extreme lethargy and encephalopathy 07/02/2023 The patient was seen and examined in medical floor He is minimally responsive to vocal commands and to painful stimuli Opening eyes and moving limbs barely with commands Remains otherwise comfortable 07/03/2023 The patient was seen and examined in medical floor He was more alert and awake this morning and wanted to have real food Noted to have choking on scrambled eggs He received a small dose of intravenous morphine for increasing shortness of breath and anxiety and has been feeling saturating on 6 L Has been sleeping and not willing to converse 07/04/2023 The patient was seen and examined in medical floor in presence of the family members He remains stable Not having any acute distress Medications which are being continued discussed with the family members Physical Exam Physical Exam: Physical examination is not done today: 07/04/2023 Lying in bed with shallow deep breathing Constitutional: + ill appearing and + thin Eyes: PERRL, conjunctivae normal, anicteric sclerae ENMT: external ear and nose normal, oropharynx normal Neck: trachea midline, no thyromegaly Respiratory: + respiratory distress (Mild to moderate distress at rest) Auscultation: + diminished lung sounds (Very diminished airflow bilaterally) and + crackles (Fine crackles bilaterally) Cardiovascular: Rate/Rhythm: regular rate and regular rhythm; not tachycardic Heart Sounds: normal S1, normal S2 and + murmur Extremities: + edema (2+ e mylene bilaterally) Gastrointestinal (Abdomen): Inspection/Auscultation: normal bowel sounds; abdomen not distended Percussion/Palpation: abdomen soft; abdomen nontender Lymphatic: no cervical or axillary lymphadenopathy Results & Data Results & Data Vital Signs (Past 12 Hours) Vital Signs O2 Del Method O2 Flow Rate 07/04/23 08:19 Nasal Cannula 3 (2) Dyspnea Dyspnea type: shortness of breath Qualified Code(s): R06.02 - Shortness of breath (5) Coronary artery disease Coronary Disease-Associated Artery/Lesion type: [place] artery (7) Hyperlipidemia Hyperlipidemia type: unspecified Qualified Code(s): E78.5 - Hyperlipidemia, unspecified (8) Type 2 diabetes mellitus Diabetes mellitus terminal system operator insulin use: without terminal system operator use Diabetes mellitus complication status: without complication Qualified Code(s): E11.9 - Type 2 diabetes mellitus without complications
[2023-07-04] MEDS ORDERED: LORazepam 0.5 MG in SYRINGE 0.25 ML IV PRN (20:54)
[2023-07-04] MEDS ORDERED: LORazepam 1 MG in SYRINGE 0.5 ML IV PRN (22:19)
[2023-07-04] MEDS: ENOXAPARIN INJ 40 MG/0.4 ML SYR SQ SCH (22:39)
[2023-07-04] MEDS: AZITHROMYCIN 500 MG in DEXTROSE 5% 250 ML IV SCH (22:39)
[2023-07-04] MEDS ORDERED: STAT IV Infusion **Titration per Protocol STA (22:58)
[2023-07-04] MEDS ORDERED: MoRPHine SULF/NSS 100 MG/100 ML BAG IV SCH (23:00)
[2023-07-05] MEDS: IPRATROPIUM BROMIDE NASAL SPRAY 0.06% 15ML NAE SCH (07:39)
--- NOTE | 2023-07-05 08:12 | Pulmonology Progress Note ---
Date of Service July 05, 2023 Assessment & Plan (1) Acute respiratory failure with hypoxia and hypercapnia: (2) Pulmonary fibrosis: (3) Right heart failure: Heart failure chronicity: acute on chronic Qualified Code(s): I50 .813 - Acute on chronic right heart failure (4) CHF (congestive heart failure): Heart failure chronicity: acute Heart failure type: unspecified Qualified Code(s): I50.9 - Heart failure, unspecified (5) End of life care: (6) Acute metabolic encephalopathy: Plan Impression: 73-year-old male with end-stage pulmonary fibrosis admitted with hypercarbic and hypoxemic respiratory failure. He is on comfort care Recommendations: 1. End-stage pulmonary fibrosis: Patient not candidate for any additional therapies. Continue comfort care measures. Defer to palliative care additional adjuncts. Unclear if home or inpatient hospice might be appropriate. No family present at the time of my visit Will continue to follow peripherally. Feel free to contact us with questions or concerns Admission and Anticipated Discharge Date Admission Date: June 30, 2023 Subjective Patient is unresponsive. Review of Systems Review of Systems: Unobtainable due to reduced consciousness Physical Exam Physical Exam: Patient unresponsive. Respirations are slow. He does not appear to have increased work of breathing or in acute distress currently Results & Data Results & Data Vital Signs (Past 12 Hours) Vital Signs O2 Del Method O2 Flow Rate 07/04/23 23:30 Nasal Cannula 3 Diagnostic Findings Palliative care notes extensively reviewed. A total of 50 minutes was spent reviewing his records PG Care Time/CCT Total # of Minutes Spent Total Time Spent with Patient: Total time spent is greater than 50% in coordination of care (as documented) at patient's floor/unit and/or counseling patient: Coding Level of Care Code 84118 SUB INP/OBS CARE 2/35MIN Diagnoses Acute respiratory failure with hypoxia and hypercapnia J96.01; J96.02 Pulmonary fibrosis J84.10 Acute on chronic right-sided heart failure I50.813 Heart failure chronicity: acute on chronic CHF (congestive heart failure) I50.9 Heart failure chronicity: acute Heart failure type: unspecified End of life care Z51.5 Acute metabolic encephalopathy G93.41
[2023-07-05] MEDS ORDERED: methylPREDNISolone 80 MG in SYRINGE 0 ML IV SCH (09:00)
--- NOTE | 2023-07-05 15:51 | Hospitalist Progress Note ---
Date of Service July 05, 2023 Assessment & Plan (1) Acute metabolic encephalopathy: Plan: Palliative care encounter The patient was seen by the palliative care service Has an extensive discussion with the family members by the palliative care provider Patient is made for comfort care only Transferred to third floor to continue comfort care Remains critical and without any acute distress He was more alert and awake this morning and wanted to have real food Noted to have choking on scrambled eggs He received a small dose of intravenous morphine for increasing shortness of breath and anxiety and has been feeling saturating on 6 L Has been sleeping and not willing to converse Remains comfortable Discussed with the family members and will asked Dr. Connolly to discuss with them as well Continue current care-has been on intravenous morphine drip and remains stable without any apparent distress Family members are satisfied Has severe end-stage pulmonary fibrosis Noted to have questionable right facial droop and not being able to move the right sided extremities A stroke alert was called and he was evaluated by teleneurologist-no stroke identified CTA of the head and neck and CT of the head were unremarkable and no need to do an MRI on close less no further stroke symptoms are noticed Noted to have severe acidosis secondary to CO2 narcosis and likely cause for his acute metabolic and cephalopathy BiPAP administered and he will be moved to ICU The cook house supervisor did talk to the family members and the patient will be changed to DNR/DNI will be under hospice care on discharge (2) Dyspnea: (3) IPF (idiopathic pulmonary fibrosis): (4) CORIN on CPAP: (5) Coronary artery disease: (6) Hypertension: (7) Hyperlipidemia: (8) Type 2 diabetes mellitus: Plan: Detailed progress note is as below: Acute worsening shortness of breath Idiopathic pulmonary fibrosis Acute on Chronic respiratory failure with hypoxia CORIN on CPAP -Admit to telemetry -Bio fire is negative for acute viral source -Wears 3L NC at baseline, currently requiring 6L, O2 sats 95% -CXR for possible multifocal pneumonia versus fluid overload, with increased edema in legs and progressive worsening shortness of breath presume this may be fluid related, BNP 961 - CT angio pending -Troponin elevated at 242 trend every 6 hours, no chest pain, no acute changes on EKG noted, unlikely ACS at this time, possible demand ischemia - Lasix and nitro 1 in paste administered in the ER, continue Lasix 40 mg IV, place Childers catheter for strict I's/O's, daily weights -Patient has been following with [facility] pulmonology started clinical trial recently-on pirfenidone 801mg TID for antifibrotic therapy. Pt also on morphine for air hunger and anxiety-Per pulm visit on 06/14 patient was reluctant to take it at that time, he is agreeable currently -Will consult Pulm here for management-appreciate input and recommendation -Patient is not on any steroids, consider -Ca 9.41, check procalcitonin -Follow blood culture, only 1 set obtained, obtain a second now - start IV cefepime and vancomycin, check MRSA nasal swab and if negative can DC Vanco -Has seen palliative care with [facility] as well per pulmonary medicine report as he is not a lung transplant candidate due to underlying cardiac comorbidities.-On -Sleep study has been ordered as an outpatient to see if CPAP pressures can be decreased and can wean off CPAP due to ongoing sinus issues - IV morphine for air hunger -Clinically not any better and in the morning a stroke alert was called as above -Remains critical and the prognosis is poor CAD HTN HLD - prior CABG x4 at [facility] at the age of 36 in 1985. He had an incidental finding of severe asymptomatic left carotid disease and underwent a left carotid endarterectomy at [facility] in February of 1994. -Follows with Dr. Malave [facility] as outpatient - consult cardiology - On Repatha, colesevelam, baby aspirin, coenzyme Q10, ezetimibe, rosuvastatin - Lasix 40 mg daily - additional lasix given as above - Check Echo with elevated troponin and fluid overload on exam - pt reports having echo completed in January at [facility] but those results are not available for review -Appreciate cardiology input and recommendation -Will hold off any Lasix for now -Echo of the heart showed EF of 50 to 55% without any left ventricular wall motion abnormalities, right ventricle is severely dilated, right atrium is moderate to severely dilated, there is mild tricuspid regurgitation and right ventricular systolic pressure is severely elevated at more than 60 mmHg DM II - Last A1C was 6.9 on 05/11/23 - Hold po metformin, ISS with accucheck achs GERD - Cont PPI Anxiety - Morphine oral solution also to be utilized for air hunger - Gabapentin DVT ppx: teds, scds Lines: GI/FEN: CODE: FULL Admission and Anticipated Discharge Date Admission Date: June 30, 2023 Subjective 07/01/2023 The patient was seen and examined in emergency room He was noted to have a right facial droop and incoherent speech at around 8:25 AM and a stroke alert was called He was reviewed by the teleneurologist He has been less responsive and not been communicating well due to extreme lethargy and encephalopathy 07/02/2023 The patient was seen and examined in medical floor He is minimally responsive to vocal commands and to painful stimuli Opening eyes and moving limbs barely with commands Remains otherwise comfortable 07/03/2023 The patient was seen and examined in medical floor He was more alert and awake this morning and wanted to have real food Noted to have choking on scrambled eggs He received a small dose of intravenous morphine for increasing shortness of breath and anxiety and has been feeling saturating on 6 L Has been sleeping and not willing to converse 07/04/2023 The patient was seen and examined in medical floor in presence of the family members He remains stable Not having any acute distress Medications which are being continued discussed with the family members 07/05/2023 The patient was seen and examined in medical floor in presence of the family members He has been on morphine drip and remains stable Not in any distress with shallow breathing Physical Exam Physical Exam: Physical examination is not done today Results & Data Results & Data Vital Signs (Past 12 Hours) Vital Signs O2 Del Method O2 Flow Rate 07/05/23 07:30 Nasal Cannula 3 (2) Dyspnea Dyspnea type: shortness of breath Qualified Code(s): R06.02 - Shortness of breath (5) Coronary artery disease Coronary Disease-Associated Artery/Lesion type: [place] artery (7) Hyperlipidemia Hyperlipidemia type: unspecified Qualified Code(s): E78.5 - Hyperlipidemia, unspecified (8) Type 2 diabetes mellitus Diabetes mellitus skilled nursing insulin use: without parts counterman use Diabetes mellitus complication status: without complication Qualified Code(s): E11.9 - Type 2 diabetes mellitus without complications
--- NOTE | 2023-07-05 17:46 | Communication Note ---
Date of Service: July 05, 2023 Asked to pronounce; On examination-totally unresponsive No pulse, no audible heart sound, no bleeding, pupils widely dilated and fixed. He was pronounced on 07/05/2023 at 1710 hrs. The immediate cause of is acute respiratory failure, end-stage pulmonary fibrosis. Dr Pete Donahue
--- NOTE | 2023-07-06 09:21 | Discharge Summary ---
Date of Service July 06, 2023 Admission HPI Per Admitting Provider This is a 73-year-old male, goes by "Adryan", with PMHx of idiopathic pulmonary fibrosis, CAD, HLD, carotid stenosis, sleep apnea, DM type II who presents to the hospital with acute worsening shortness of breath of the past 3 weeks, with associated peripheral edema worsening within the past 1 weeks. Pt reports feeling increased fatigue and weakness within the past week moreso than his baseline. He typically wears 3 L at baseline, sometimes 3.5 with exertional activities. Normally he can walk 10 to 15 feet without becoming significantly winded, however within the past week he has been able to do minimal things and only walk a little bit before needing to catch his breath. He sleeps lying flat and does not require pillows to prop him up. He does sit for the majority of the day and his feet are on the ground, not elevated. Patient walks without any ambulatory assistive device. Denies any recent falls. He admits to having some chest heaviness which has been present for months, but admits to feeling p alpitations today. He denies any specific chest pain, no numbness or tingling, no nausea. Pt has issues with eating and has lost a significant amount of weight, weight about 130 lbs currently. Pt is drinking carnation instant breakfast daily when he cannot tolerate a lot of food. Pt denies any weight gain or loss acutely with swelling in legs. In the past week he had stopped using Ativan and morphine sulfate for air hunger. Pts reports thinking he was confused a litle more than normal about a week ago, and so held these meds since Tuesday. Pt took all his morning medications today. Pts Delores is present at bedside and supports the history. She states that yesterday he was just not himself, had increased difficulty breathing with minimal ADLs. She also notes that Adryan is participating in Tyvaso clinical trial with [facility] and was supposed to go yesterday but didn't feel well enough and did not go. [facility] sees the pt twice weekly as outpatient. He has also recently started seeing a psych therapist for depression/anxiety associated with the sadness he still feels when knowing that he is not a lung transplant candidate. Today he wishes to be full code. Discussion was held regarding using oral morphine for air hunger and he states his symptoms of shortness of breath seem to be more controlled with this medication. Admission Exam Per Admitting Provider Physical Exam: General: awake, alert, no apparent distress, cachectic white male Head: Normocephalic, atraumatic ENT: PERRL, EOMI, no pharyngeal exudate, mucous membranes moist Chest: Diminished breath sounds throughout, takes shallow breaths, difficulty with deep breaths, on 6L via NC no wheezes, + faint rales Cardiac: Regular rate and rhythm, no murmur, no JVD, normal peripheral pulses, good capillary refill Abdominal: NABS x 4 quadrants, soft, nondistended, nontender to palpation, no rebound or guarding Extremities: + muscle atrophy throughout, + 2 + pitting peripheral edema up to knees bilaterally, no erythema, calfs nontender to palpation Psych: Normal mood and affect Neuro: AAO x 3, strength intact bilaterally and rated 5/5, no motor deficits, speech is clear, no peripheral sensory deficits Principal Diagnosis Acute Respiratory failure Pulmonary Fibrosis Discharge Exam Physical examination is not done today Constitutional + ill appearing and + thin Eyes PERRL, conjunctivae normal, anicteric sclerae ENMT external ear and nose normal, oropharynx normal Neck trachea midline, no thyromegaly Respiratory + respiratory distress (Mild to moderate distress at rest) Auscultation: + diminished lung sounds (Very diminished airflow bilaterally) and + crackles (Fine crackles bilaterally) Cardiovascular Rate/Rhythm: regular rate and regular rhythm; not tachycardic Heart Sounds: normal S1, normal S2 and + murmur Extremities: + edema (2+ edema bilaterally) Gastrointestinal (Abdomen) Inspection/Auscultation: normal bowel sounds; abdomen not distended Percussion/Palpation: abdomen soft; abdomen nontender Lymphatic no cervical or axillary lymphadenopathy Discharge Data Allergies Allergy/AdvReac Type Severity Reaction Status Date / Time No Known Allergies Allergy Verified 06/30/23 17:36 Consultations 06/30/23 17:41 ED Decision to Admit Stat 06/30/23 18:09 Consult Pulmonology Routine 06/30/23 19:48 Consult Cardiology Routine 07/01/23 10:14 Consult Residential Door Unit Installer Routine 07/01/23 11:31 Consult Palliative Care Routine Ordered Studies 06/30/23 17:25 CT angio chest PE protocol Stat 06/30/23 20:54 US RUQ [US liver] Urgent 07/01/23 08:46 CT angio neck with con Stat CTA head wo/w [CT angio head wo/w] Stat Hospital Course (1) Acute metabolic encephalopathy: Palliative care encounter The patient was seen by the palliative care service Has an extensive discussion with the family members by the palliative care provider Patient is made for comfort care only Transferred to third floor to continue comfort care Remains critical and without any acute distress He was more alert and awake this morning and wanted to have real food Noted to have choking on scrambled eggs He received a small dose of intravenous morphine for increasing shortness of breath and anxiety and has been feeling saturating on 6 L Has been sleeping and not willing to converse Remains comfortable Discussed with the family members and will asked Dr. Connolly to discuss with them as well Continue current care-has been on intravenous morphine drip and remains stable without any apparent distress Family members are satisfied Has severe end-stage pulmonary fibrosis Noted to have questionable right facial droop and not being able to move the right sided extremities A stroke alert was called and he was evaluated by teleneurologist-no stroke id entified CTA of the head and neck and CT of the head were unremarkable and no need to do an MRI on close less no further stroke symptoms are noticed Noted to have severe acidosis secondary to CO2 narcosis and likely cause for his acute metabolic and cephalopathy BiPAP administered and he will be moved to ICU The dressmaker helper did talk to the family members and the patient will be changed to DNR/DNI will be under hospice care on discharge (2) Dyspnea: (3) IPF (idiopathic pulmonary fibrosis): (4) CORIN on CPAP: (5) Coronary artery disease: (6) Hypertension: (7) Hyperlipidemia: (8) Type 2 diabetes mellitus: Detailed progress note is as below: Acute worsening shortness of breath Idiopathic pulmonary fibrosis Acute on Chronic respiratory failure with hypoxia CORIN on CPAP -Admit to telemetry -Bio fire is negative for acute viral source -Wears 3L NC at baseline, currently requiring 6L, O2 sats 95% -CXR for possible multifocal pneumonia versus fluid overload, with increased edema in legs and progressive worsening shortness of breath presume this may be fluid related, BNP 961 - CT angio pending -Troponin elevated at 242 trend every 6 hours, no chest pain, no acute changes on EKG noted, unlikely ACS at this time, possible demand ischemia - Lasix and nitro 1 in paste administered in the ER, continue Lasix 40 mg IV, place Childers catheter for strict I's/O's, daily weights -Patient has been following with [facility] pulmonology started clinical trial recently-on pirfenidone 801mg TID for antifibrotic therapy. Pt also on morphine for air hunger and anxiety-Per pulm visit on 06/14 patient was reluctant to take it at that time, he is agreeable currently -Will consult Pulm here for management-appreciate input and recommendation -Patient is not on any steroids, consider -Ca 9.41, check procalcitonin -Follow blood culture, only 1 set obtained, obtain a second now - start IV cefepime and vancomycin, check MRSA nasal swab and if negative can DC Vanco -Has seen palliative care with [facility] as well per pulmonary medicine report as he is not a lung transplant candidate due to underlying cardiac comorbidities.-On -Sleep study has been ordered as an outpatient to see if CPAP pressures can be decreased and can wean off CPAP due to ongoing sinus issues - IV morphine for air hunger -Clinically not any better and in the morning a stroke alert was called as above -Remains critical and the prognosis is poor CAD HTN HLD - prior CABG x4 at [facility] at the age of 36 in 1985. He had an incidental finding of severe asymptomatic left carotid disease and underwent a left carotid endarterectomy at [facility] in February of 1994. -Follows with Dr. Malave [facility] as outpatient - consult cardiology - On Repatha, colesevelam, baby aspirin, coenzyme Q10, ezetimibe, rosuvastatin - Lasix 40 mg daily - additional lasix given as above - Check Echo with elevated troponin and fluid overload on exam - pt reports having echo completed in January at [facility] but those results are not available for review -Appreciate cardiology input and recommendation -Will hold off any Lasix for now -Echo of the heart showed EF of 50 to 55% without any left ventricular wall motion abnormalities, right ventricle is severely dilated, right atrium is moderate to severely dilated, there is mild tricuspid regurgitation and right ventricular systolic pressure is severely elevated at more than 60 mmHg DM II - Last A1C was 6.9 on 05/11/23 - Hold po metformin, ISS with accucheck achs GERD - Cont PPI Anxiety - Morphine oral solution also to be utilized for air hunger - Gabapentin DVT ppx: teds, scds Lines: GI/FEN: CODE: FULL Total Time Total Time Spent Total Time Spent (In Minutes): 20 minutes Discharge Plan Discharge Items Patient Disposition: Other Date/Time: 07/05/23 17:36
--- NOTE | 2023-07-06 09:51 | Palliative Care Progress Note ---
Date of Service July 05, 2023 Assessment & Plan (1) Dyspnea and respiratory abnormalities: Plan: continue MS 3mg per hour infusion, bolus from IV as needed by nursing, orders addended for q15min prn dosing and titration protocol increase by 1mg per hour as needed (2) End of life care: Plan: apneas of 10+ sec, decreased MS/unresponsive, + early mottling --> pt is transitioning to active dying. Family aware. Anticipated survival of hours to a day, (3) IPF (idiopathic pulmonary fibrosis): (4) Advanced care planning/counseling discussion: Plan: Met with family face to face x 30min, , dtrs x3, son in law x1. reviewed changes overnight and now decline with apneas agree is imminent likely hours to a day or so at most we will continue CAREER DEVELOPMENT CONSULTANT no need to dc or transfer, he is not stable and he is actively dying Goals remains to assure a peaceful and dignified end of life process. (5) Palliative care by specialist: (6) Pulmonary hypertension: (7) Acute respiratory failure with hypoxia and hypercapnia: (8) ASCVD (arteriosclerotic cardiovascular disease): Plan Actively dying Anticipate within hours to a day Family aware and present Patient will in the hospital, he is not stable for dc or transfer. Continue CAREER DEVELOPMENT CONSULTANT Thank you for allowing us to participate in the ongoing care of this patient. Please don't hesitate to call or page with any additional concerns. Dr. Gely Jones DNP Director, Palliative Care Admission and Anticipated Discharge Date Admission Date: June 30, 2023 Subjective remains on CAREER DEVELOPMENT CONSULTANT started having more uncontrolled sx last night, began MS Infusion now titrated to 3mg per hour and much more comfortable appearing needed some ativan for symptom mgt family at bedside comfortable after extended discussion yesterday with what to expect, feel more empowered per their report, of knowing what the changes mean. Son in law notes they have been seeing some apnea start and know it won't be much longer. Review of Systems Review of Systems: Unobtainable due to reduced consciousness Physical Exam Physical Exam: Frail, cachectic elderly male, in mild respiratory distress. Bitemporal wasting. There is milder use of accessory muscles noted. Abdominal breathing is noted. There is JVD noted. Overall breath sounds are diminished with crackles. +apneas approx 10-15sec. He is tachycardic. There is a pronounced S2. Abdomen is scaphoid. +generalized weakness. His skin is pale and cool to touch. He is not able to follow commands. He is unresponsive. Mild mottling BLE. PG Care Time/CCT Total # of Minutes Spent Total Time Spent: 75 Total Time Spent with Patient: Total time spent is greater than 50% in coordination of care (as documented) at patient's floor/unit and/or counseling patient: I spent 75 minutes overall addressing this case: 10 min in medical data review/discussion with referring provider(s) and/or preparation for the visit 15 min in direct interaction with the patient/exam 30 min in Advance Care Planning/Goals of Care discussions as detailed above in note (must be >16min) 10 min in subsequent review and synthesis of assessment and plan 10 min communicating with other providers regarding the patient's case: Advanced Care Planning 57731 Advanced Care Planning 30 Min [place] [address] SUB INP/OBS CARE 3/50MIN Patient Type Established History Comprehensive Exam Comprehensive Medical Decision Making High Complexity Diagnoses Dyspnea and respiratory abnormalities R06.00; R06.89 End of life care Z51.5 IPF (idiopathic pulmonary fibrosis) J84.112 Advanced care planning/counseling discussion Z71.89 Palliative care by specialist Z51.5 Pulmonary hypertension I27.20 Acute respiratory failure with hypoxia and hypercapnia J96.01; J96.02 ASCVD (arteriosclerotic cardiovascular disease) I25.10 Additional Codes Advanced Care Planning - 39365 Advanced Care Planning 30 Min: 79209 Advanced Care Planning 30 Min ([id number])
== END 2023-07-05 19:54 | disposition expired | DRG 196 ==
LOC: ED 15:37 → EDINP 18:11 → SUATTDRO 18:11 → EDINP 19:49 → 3E 07-01 17:09